=== PATIENT | female | born 1970 | race Caucasian/White ===

== ENCOUNTER 2023-05-20 07:23 | Outpatient (OUT) | payer OTHER, SELFPAY ==
[2023-05-20 08:33] LABS: Alanine Aminotransferase 32 U/L (14-59); Albumin Globulin Ratio 1.1; Albumin Level 3.9 g/dL (3.4-5.0); Alkaline Phosphatase 84 U/L (46-116); Anion Gap 12.8; Aspartate Amino Transferase 23 U/L (15-37); BUN Creatinine Ratio 24.7; Bilirubin Total 0.8 mg/dL (0.2-1.0); Calcium 9.2 mg/dL (8.5-10.1); Carbon Dioxide 29.5 mmol/L (21.0-32.0); Chloride 101 mmol/L (98-107); Chol HDL Ratio 2.7; Cholesterol 175 mg/dL (<=200); Creatine Kinase 53 U/L (26-192); Estimated GFR (African America >60 (>=60); Estimated GFR (Non-African Ame >60 (>=60); Globulin 3.4 g/dL; Glucose 98 mg/dL (74-106); HDL Cholesterol 65 mg/dL (40-60); Potassium 4.3 mmol/L (3.5-5.1); Sodium 139 mmol/L (136-145); Total Protein 7.3 g/dL (6.4-8.2); Triglycerides 59 mg/dL (<=150); VLDL CHOLESTEROL 11.8 mg/dL
[2023-05-20 10:01] LABS: Hematocrit 42.1 % (36.0-48.0); Hemoglobin 13.4 g/dL (12.0-16.0); Mean Corpuscular HGB Conc 31.8 g/dL (29.9-35.2); Mean Corpuscular Hemoglobin 30.2 pg (26.7-34.0); Mean Platelet Volume 10.8 fL (9.5-13.5); Platelet Count 255 10^3/uL (150-450); Red Blood Count 4.43 10^6/uL (4.20-5.40); Red Cell Distribution Width 12.8 % (11.0-15.0)
[2023-05-20 14:39] LABS: Atypical Lymphocytes Abs Man 1.04; Eosinophils Absolute Manual 0.26 10^3/uL (0.00-0.70); Monocytes Absolute Manual 0.52 10^3/uL (0.30-0.80); Segmented Neut Absolute Manual 4.68 10^3/uL (1.4-6.5)
== END 2023-05-20 07:24 | disposition home or self-care (01) ==
PROVIDERS: PCP Family Medicine; Visit Provider Family Medicine
DX: Z00.00 Encounter for general adult medical examination without abnormal findings (principal); E78.2 Mixed hyperlipidemia
CPT/HCPCS: 36415; 80053; 80061; 82550; 85007; 85027

== ENCOUNTER 2024-05-20 07:55 | Outpatient (OUT) | payer OTHER, SELFPAY ==
--- OUTSIDE RECORDS SUMMARY | 2024-05-20 08:02 | XMS_ITS | CCD ---
Author Organization [facility] Care Team Providers Care Senior Business Broker Name Role Phone PEARL ORTEGA Unavailable Unavailable CHANDANA SAGE Unavailable Unavailable PEARL ORTEGA Unavailable Unavailable CHANDANA SAGE Unavailable Unavailable YFN AKINS ([facility]) Unavailable UnavailPEARL Guy Unavailable Unavailable PEARL ORTEGA Primary Care Physician DR PEARL ORTEGA Attending Unavailable SHANNON, DR PEARL Arredondo Consulting Unavailable DR PEARL ORTEGA Primary Care Unavailable DR PEARL ORTEGA Admitting Unavailable Pearl Ortega Unavailable Pearl Ortega MD Primary Care Provider Noam Whitney Admitting Unavailable Noam Whitney Attending Unavailable Noam Whitney Referring Unavailable Noam Whitney Admitting Unavailable Noam Whitney Attending Unavailable Noam Whitney Referring Unavailable MATA IVY Attending Unavailable AUGUSTIN IBANEZ Attending Unavailable AUGUSTIN IBANEZ Attending Unavailable AUGUSTIN IBANEZ Attending Unavailable AUGUSTIN IBANEZ Attending Unavailable AUGUSTIN IBANEZ Attending Unavailable AUGUSTIN IBANEZ Attending Unavailable MATA IVY Attending Unavailable MATA IVY Attending Unavailable MATA IVY Attending Unavailable MATA IVY Attending Unavailable Allergies Allergy Classification Reported Allergen(s) Allergy Type Date of Onset Reaction(s) Facility (16 sources) azithromycin; Translations: [AZITHROMYCIN] Drug Allergy 08-02-19 16 AOF [facility] (20 sources) Penicillins; Translations: [PENICILLINS] Propensity to adverse reactions to drug (disorder) 08-02-19 16 Rash [facility] (20 sources) Erythromycin; Translations: [erythromycin] Drug Allergy 10-15-19 23 Antimicrobial susceptibility test (procedure) [facility] (20 sources) Tetracycline; Translations: [tetracycline] Drug Allergy 10-15-19 23 unknown [facility] (5 sources) Clindamycin Drug Allergy 09-04-19 24 Unknown, Unknown Reaction [facility] (20 sources) Doxycycline Drug Allergy 10-15-19 23 Unknown, Unknown Reaction [facility] (4 sources) Penicillin G Drug Allergy Unknown [facility] Other (3 sources) Substance with penicillin structure and antibacterial mechanism of action (substance) Drug allergy 11-27-19 13 Unknown [facility] Other (3 sources) patient allergy list reviewed by nurse or physicia Propensity to adverse reactions 11-27-19 Comment:Done [facility] Other (3 sources) Allergies Reconciled Propensity to adverse reactions Unknown [facility] Other (1 source) erythromycin base Allergy to substance 09-04-19 Unknown Reaction [facility] Medications Current Medications Medication Drug Class(es) Dates Sig (Normalized) Sig (Original) Ascorbic Acid (10 sources) Vitamin C Start: 03-28-2019 Vitamin C Segun y, Refills(s) 0 Start Date: 03/28/19 Status: Ordered Vitamin C *abdulkadir arredondo review for potential _update for e-prescription and drug interaction check* Active atorvastatin 40 mg oral tablet (11 sources) HMG-CoA Reductase Inhibitor Start: 06-02-2016 take 1 tablet by mouth once daily atorvastatin 40 mg Tab 40 mg = 1 tab(s), Oral, Daily, Refills(s) 0, High cholesterol Start Date: 06/02/16 Status: Ordered busPIRone hydrochloride 10 mg oral tablet (20 sources) Start: 05-18-2023 End: 05-19-2023 Buspirone Active 10 MG PO Every morning May 19, 2023 2:56pm Take 1/2 Tablet QAM orally once a day Start: 07-26-2022 take 1 tablet by earl th once daily busPIRone (Buspar) 10 MG tablet TAKE 1 TABLET BY MOUTH ONCE DAILY FOR 30 DAYS 07/26/2022 Active ciprofloxacin 500 mg oral tablet (1 source) Quinolone Antimicrobial Start: 09-04-2023 take 500 mg by mouth twice daily Ciprofloxacin Hcl Active 500 MG PO Twice daily September 04, 2023 12:00am citalopram 20 mg oral tablet (20 sources) Serotonin Reuptake Inhibitor Start: 09-26-2022 citalopram (CeleXA) 20 MG tablet 09/26/2022 Active Start: 06-02-2016 take 1 tablet by earl th once daily citalopram 10 mg Tab 10 mg = 1 tab(s), Oral, Daily, Refills(s) 0, Anxiety Start Date: 06/02/16 Status: Ordered clobetasol propionate 0.5 mg/ml topical solution (15 sources) Corticosteroid Start: 07-25-2022 clobetasol (Temovate) 0.05 % external solution APPLY DROPS TO SCALP ONCE OR TWICE DAILY NEEDED FOR ITTCHING 07/25/2022 Active Dextromethorphan / guaiFENesin (6 sources) Uncompetitive A-pwcnhq-S-aspartate Receptor Antagonist, Sigma-1 Agonist Start: 04-18-2020 take 5 mL by mouth every four hours for cough dextromethorphan -guaifenesin 10 mg-100 mg/5 mL Oral Liq 480 mL 5 mL, Oral, q4hr for cough, 300 mL, Refill(s) 0, [facility], 173, cm, 04/15/20 17:15:00 EST, Height/Length Dosing, 65, kg, 04/15/20 17:15:00 EST, Weight Dosing Start Date: 04/18/20 Status: Ordered estradiol 1 mg oral tablet (20 sources) Estrogen Start: 09-04-2023 take 0.5 mg by mouth once daily Estradiol Active 0.5 MG PO Daily September 04, 2023 12:00am off 1 week; repeat cycle Start: 05-18-2023 Estradiol Acti ve VAGINAL May 18, 2023 1:00am Start: 09-23-2022 estradiol (Est race) 0.5 MG tablet 09/23/2022 Active Estradiol 0.1 MG /GM as directed Vaginal Once a day *please review for potential _update for e-prescription and drug interaction check* Active Estradiol 0.1 MG /GM as directed Vaginal Once a day *please review for potential _update for e-prescription and drug interaction check* Active Ethinyl Estradiol / Ferrous fumarate / Norethindrone (1 source) Estrogen Start: 04-15-2020 Lo Loestrin Fe Oral, Daily, Refill(s) 0 Start Date: 04/15/20 Status: Ordered ethinyl estradiol 0.005 mg / norethindrone acetate 1 mg oral tablet (15 sources) Estrogen Start: 05-30-2022 norethindrone- et hinyl estradiol (Femhrt 03/20) 1-5 MG-MCG tablet 05/30/2022 Active famotidine 20 mg oral tablet (1 source) Histamine-2 Receptor Antagonist Start: 04-15-2020 take 1 tablet by mouth twice daily Pepcid 20 mg Tab 20 mg = 1 tab(s), Oral, BID, # 60 tab(s), Refills(s) 0 Start Date: 04/15/20 Status: Ordered guaiFENesin 1200 mg oral tablet (6 sources) Start: 06-02-2016 take 1 tablet by mouth every twelve hours as needed Mucinex 1200 mg ER Tab 1,200 mg, Oral, q12hr, PRN Sinus symptoms, Refills(s) 0, Sinus symptoms Start Date: 06/02/16 Status: Ordered Start: 06-02-2016 take 1 tablet by earl every twelve hours as needed Mucinex 1200 mg ER Tab 1,200 mg, Oral, q12hr, PRN Sinus symptoms, Refills(s) 0, Sinus symptoms Start Date: 06/02/16 Status: Ordered ibuprofen 800 mg oral tablet (6 sources) Nonsteroidal Anti-inflammatory Drug Start: 04-18-2020 take 1 tablet by mouth three times daily as needed for pain ibuprofen 800 mg Tab 800 mg = 1 tab(s), Oral, TID, PRN Pain/Fever, # 10 tab(s), Refills(s) 0, Pharmacy: [facility], 173, cm, 04/15/20 17:15:00 EST, Height/Length Dosing, 65, kg, 04/15/20 17:15:00 EST, Weight Dosing Start Date: 04/18/20 Status: Ordered indomethacin 25 mg oral capsule (6 sources) Nonsteroidal Anti-inflammatory Drug Start: 05-18-2023 End: 05-19-2023 take 25 mg by mouth twice daily Indomethacin Active 25 MG PO Twice daily 180 May 19, 2023 2:56pm take 1 capsule by mo [facility] every twelve hours Indomethacin 25 MG 1 capsule with food o r milk Orally Twice a day for 30 days Active ondansetron 4 mg oral tablet (2 sources) Serotonin-3 Receptor Antagonist Start: 04-18-2020 take 1 tablet by mouth every eight hours as needed for nausea Zofran 4 mg Tab 4 mg = 1 tab(s), Oral, q8hr, PRN Nausea/Vomiting, # 10 tab(s), Refills(s) 0, Pharmacy: [facility] 1986, 173, cm, 04/15/20 17:15:00 EST, Height/Length Dosing, 65, kg, 04/15/20 17:15:00 EST, Weight Dosing Start Date: 04/18/20 Status: Ordered oseltamivir 75 mg oral capsule (1 source) Neuraminidase Inhibitor Start: 04-13-2023 take 1 capsule by mouth every twelve hours Tamiflu 75 MG 1 capsule Orally Twice a day for 5 day(s) Mar, Active Probiotic (4 sources) Probiotic *pleas e review for potential _update for e-prescription and drug interaction check* Active Restasis 0.05% Emulsion (1 source) Start: 06-02-2016 take 1 drop(s) into the eye(s) every twelve hours Restasis 0.05% Emulsion 1 drop(s), Eye-Both, q12hr, Refill(s) 0, Other (see comment) Start Date: 06/02/16 Status: Ordered sulfamethoxazole 800 mg / trimethoprim 160 mg oral tablet (5 sources) Dihydrofolate Reductase Inhibitor Antibacterial, Sulfonamide Antimicrobial Start: 04-13-2023 take 1 tablet by mouth every twelve hours Bactrim DS 800-160 MG 1 tablet Orally Twice a day for 10 day(s) Mar, Active Completed/Discontinued Medications Medication Drug Class(es) Dates Sig (Normalized) Sig (Original) cephalexin 500 mg oral capsule (4 sources) Cephalosporin Antibacterial Start: 03-07-2019 take 1 capsule by mouth every twelve hours Cephalexin 500 MG 1 capsule Orally every 12 hrs for 7 days Feb, Not-Taking/PRN L Norgest/E.Estradi ol-E.Estrad (5 sources) Progestin, Estrogen, Progestin-containing Intrauterine Device Start: 05-18-2023 End: 09-04-2023 take 1 tablet by mouth once daily L Norgest/E.Estradio l-E.Estrad (Daysee) 0.15 mg-30 mcg (84)/10 mcg (7) tablets,dose pack,3 month Discontinued 1 TAB PO Daily May 18, 2023 1:00am September 04, 2023 1:18pm take 1 tablet by earl th every twenty-four hours Daysee 0.15-0.03 &0.01 MG 1 tablet Orall y Once a day *please review for potential _update for e-prescription and drug interaction check* Active fluorometholone 1 mg/ml ophthalmic suspension (4 sources) Corticosteroid take 1 drop(s) into the eye(s) twice daily as needed Fluorometholone 0.1 % 1 drop into affected eye Ophthalmic Twice a day Not-Taking/PRN take 1 drop(s) into the eye(s) twice daily Fluorometholone 0.1 % 1 drop into affect ed eye Ophthalmic Twice a day Not-Taking phenazopyridine hydrochloride 200 mg oral tablet (4 sources) Start: 03-07-2019 take 1 tablet by mouth every eight hours Pyridium 200 MG 1 tablet after meals Orally Three times a day for 2 day(s) Feb, Not-Taking/PRN Problems Active Problems Problem Classification Problem Date Documented Da te Episodic/Chronic Anxiety disorders (15 sources) Anxiety; Translations: [Generalized anxiety disorder] 06-02-2016 Chronic Calculus of urinary tract (14 sources) Kidney stone; Translations: [Calculus of kidney] Onset: 2 05-21-2020 Episodic Diseases of white blood cells (4 sources) Lymphocytosis (symptomatic); Translations: [Leukocytosis] Onset: 6 Chronic Disorders of lipid metabolism (18 sources) Hypercholesterolemia; Translations: [Hyperlipidemia] 06-02-2016 Chronic Esophageal disorders (7 sources) Gastroesophageal reflux disease without esophagitis; Translations: [Gastro-esophageal reflux disease without esophagitis] Chronic Fluid and electrolyte disorders (4 sources) Dehydration; Translations: [Dehydration] Episodic Genitourinary symptoms and ill-defined conditions (20 sources) Slade hematuria; Translations: [History of urinary tract infection] Onset: 2 03-28-2019 Episodic Immunizations and screening for infectious disease (4 sources) Vaccination given; Translations: [Encounter for immunization] Episodic Leukemias (14 sources) Chronic lymphoid leukemia, disease; Translations: [Chronic lymphocytic leukemia of B-cell type not having achieved remission] Onset: 7 06-02-2016 Chronic Leukemias (8 sources) History of chronic lymphocytic leukemia; Translations: [Personal history of leukemia] Episodic Leukemias (6 sources) Leukemias 04-15-2020 Menopausal disorders (7 sources) Atrophic vaginitis; Translations: [Postmenopausal atrophic vaginitis] Chronic Nonspecific chest pain (3 sources) Chest pain; Translations: [Other chest pain] Episodic Other connective tissue disease (6 sources) Neuralgia 06-02-2016 Episodic Comment on above: facial Other connective tissue disease (8 sources) Capsulitis; Translations: [Other enthesopathies, not elsewhere classified] 01-06-2024 Episodic Other connective tissue disease (8 sources) Pain in right foot; Translations: [Pain in right foot] 01-06-2024 Episodic Other connective tissue disease (2 sources) Plantar fasciitis; Translations: [Plantar fascial fibromatosis] 05-04-2024 Episodic Other connective tissue disease (2 sources) Bilateral heel pain; Translations: [Pain in right foot] 05-04-2024 Episodic Other eye disorders (6 sources) Tear film insufficiency 06-02-2016 Episodic Other gastrointestinal disorders (6 sources) Irritable bowel syndrome 11-12-2018 Chronic Other nervous system disorders (4 sources) Chronic pain; Translations: [Other chronic pain] Chronic Other nervous system disorders (4 sources) Neuroma; Translations: [Other specified mononeuropathies] 02-24-2024 Chronic Other nervous system disorders (8 sources) Trigeminal neuralgia; Translations: [Trigeminal neuralgia] Onset: 8 05-18-2023 Episodic Other upper respiratory disease (11 sources) Allergic rhinitis; Translations: [Allergic rhinosinusitis] Chronic Other upper respiratory disease (3 sources) Allergic rhinitis due to pollen; Translations: [Allergic rhinitis due to pollen] Onset: 3 Chronic Other upper respiratory infections (7 sources) Bacterial sinusitis; Translations: [Chronic sinusitis, unspecified] Chronic Other upper respiratory infections (4 sources) Acute sinusitis; Translations: [Acute sinusitis, unspecified] Onset: 3 Episodic Prolapse of female genital organs (6 sources) Uterine prolapse 06-02-2016 Chronic Comment on above: second degree Residual codes; unclassified (3 sources) Requires influenza virus vaccination; Translations: [Need for prophylactic vaccination and inoculation, Influenza] Episodic Residual codes; unclassified (3 sources) Normal body mass index; Translations: [Body mass index (BMI) 24.0-24.9, adult] Episodic Spondylosis; intervertebral disc disorders; other back problems (12 sources) Cervical spondylosis with radiculopathy; Translations: [Other spondylosis with radiculopathy, cervical region] Chronic Spondylosis; intervertebral disc disorders; other back problems (3 sources) Cervical radiculopathy; Translations: [Radiculopathy, cervical region] Episodic Unclassified (1 source) Unknown / UNK(Unknown) Onset: 7 Unclassified (6 sources) Asymptomatic microscopic hematuria 05-21-2020 Urinary tract infections (10 sources) Dysuria-frequency syndrome; Translations: [Urethral syndrome, unspecified] Episodic Viral infection (12 sources) Infectious mononucleosis; Translations: [Varicella] 11-12-2018 Episodic Viral infection (3 sources) Disease caused by 2019-nCoV; Translations: [COVID-19] Past or Other Problems Problem Classification Problem Date Documented Da te Episodic/Chronic Allergic reactions (6 sources) Contact dermatitis due to plants; Translations: [Unspecified contact dermatitis due to plants, except food] Onset: 11-26-2012 Episodic Mycoses (3 sources) Candidiasis of mouth; Translations: [Candidal stomatitis] Onset: 12-08-2012 Episodic Other connective tissue disease (15 sources) Plantar fascial fibromatosis; Translations: [Plantar fascial fibromatosis] Onset: 10-14-2022 10-14-2022 Episodic Other nervous system disorders (1 source) Atypical facial pain; Translations: [Atypical facial pain] Onset: 11-03-2016 Episodic Results Test Name Value Interpretation Reference Range Facility MA Mamm Diag w/CAD if perf a nd 3D LTon 04-22-2024 MA Mamm Diag w/CAD if perf and 3D LT Exam Date/Time: 04/22/2024 09:40 EST Reason for Exam: R92.8 Report IMPRESSION: BIRADS 2 BENIGN FINDINGS, NORMAL INTERVAL FOLLOW-UP Follow-up: 6 MONTH RECALL Category C - The breasts are heterogeneously dense, which may obscure small masses. Vascular calcifications: Absent. EXAM: MA Mamm Diag w/CAD if perf and 3D LT DATE: 04/22/2024 9:12 AM CLINICAL HISTORY: R92.8. COMPARISONS: 10/30/2023, 10/10/2022, 10/03/2021, and left breast ultrasound studies, most recently 10/30/2023. TECHNIQUE: Routine full-field digital mammograms and 3D breast tomosynthesis were obtained of the left breast. FINDINGS: There are no developing densities, suspicious microcalcifications, or areas of architectural distortion identified on the current study. Less prominent asymmetry lateral left breast at a posterior depth from 10/30/2023. No other significant changes are identified from the prior studies, given differences in technique and positioning. Dense Breast: Yes. CAD analysis was performed and used in the interpretation. Board Certified Radiologists. Accredited by the ACR and FDA. MAMMOGRAPHY IS VERY IMPORTANT TO YOUR HEALTH. THE CURRENT [employer] OF [employer] AND [employer]ATIONAL [employer]PREH[employer]IVE [employer] NETWORK GUIDELINES RECOMMENDS ANNUAL MAMMOGRAPHY BEGINNING AT AGE 40. THIS FACILITY UTILIZES A REMINDER SYSTEM TO ENSURE ALL PATIENTS RECEIVE REMINDER NOTIFICATIONS AT THE APPROPRIATE TIME BASED ON THE RECOMMENDATIONS OF THIS EXAM. Report Ordering Provider: Noam Whitney FINAL REPORT Dictated: 04/22/2024 9:51 am Zay Brown MD Signed (Electronic Signature): 04/22/2024 9:51 am Signed by: Zay Brown MD Transcribed by: RENATO Technologist: DAMIÁN Assessment: BI-RADS Category 2-Benign finding Recommendation: Normal interval follow-up Normal [facility] MA Mamm Diag w/CAD if perf a nd 3D Bilon 10-30-2023 MA Mamm Diag w/CAD if perf and 3D Justice Exam Date/Time: 10/30/2023 09:17 EDT Reason for Exam: N64.9 Report IMPRESSION: BIRADS 3 PROBABLY BENIGN, SHORT INTERVAL FOLLOW-UP Six-month follow-up left breast mammograms and possibly left breast ultrasound are suggested. Follow-up: 6 MONTH RECALL Density: Heterogeneously dense. Vascular calcifications: Absent. EXAM: MA Mamm Diag w/CAD if perf and 3D Justice, US Breast Unilateral Lt Complete DATE: 10/30/2023 9:01 AM CLINICAL HISTORY: N64.9. COMPARISONS: Numerous prior studies; most recently left breast ultrasound 05/04/2023, diagnostic left breast mammograms 10/23/2022, and bilateral screening mammograms 10/10/2022. TECHNIQUE: Routine full-field 2D digital mammograms and 3D breast tomosynthesis were obtained of both breasts. Ultrasound was performed at all clock face positions and in the central/retroareolar region of the left breast. FINDINGS: An approximately 5 to 6 mm asymmetric density within the lateral aspect of the left breast at a posterior depth is not confidently identified on the MLO, and localizes to the lower outer quadrant on tomosynthesis. No other significant changes identified elsewhere of either breast, by mammography. On ultrasound of the left breast, an approximately 7 x 4 mm hypoechoic structure at the 10:00 position appears unchanged. A similar-appearing mildly lobulated hypoechoic structure at the 5:00 position measuring approximately 6 x 5 x 3 mm may account for the mammographic area of concern. No other findings of concern are identified elsewhere within the left breast. Six-month follow-up left breast mammograms and possibly left breast ultrasound are suggested. I explained the findings to the patient upon completion of the ultrasound exam. Report Dense Breast: Yes. CAD analysis was performed and used in the interpretation. Board Certified Radiologists. Accredited by the ACR and FDA. MAMMOGRAPHY IS VERY IMPORTANT TO YOUR HEALTH. THE CURRENT [employer] OF [employer] AND [employer]ATIONAL [employer]PREH[employer]IVE CANC[employer] NETWORK GUIDELINES RECOMMENDS ANNUAL MAMMOGRAPHY BEGINNING AT AGE 38. THIS FACILITY UTILIZES A REMINDER SYSTEM TO ENSURE ALL PATIENTS RECEIVE REMINDER NOTIFICATIONS AT THE APPROPRIATE TIME BASED ON THE RECOMMENDATIONS OF THIS EXAM. Ordering Provider: Noam Whitney FINAL REPORT Dictated: 10/30/2023 11:20 am Zay Brown MD Signed (Electronic Signature): 10/30/2023 11:20 am Signed by: Zay Brown MD Transcribed by: RENATO Technologist: [place] Assessment: BI-RADS Category 3-Probably benign - short interval follow-up Recommendation: Follow-up at short interval Normal [facility] US Breast Unilateral Lt Comp ramez 10-30-2023 US Breast Unilateral Lt Complete Exam Date/Time: 10/30/2023 10:01 EDT Reason for Exam: N64.9 Report PLEASE SEE MA Mamm Diag w/CAD if perf and 3D Justice REPORT DATED: 10/30/2023. Ordering Provider: Noam Whitney FINAL REPORT Dictated: 10/30/2023 11:21 am Zay Brown MD Signed (Electronic Signature): 10/30/2023 11:21 am Signed by: aZy Brown MD Transcribed by: RENATO Technologist: DORIAN Armenta [facility] CBC AUTO DIFFon 04-15-2022 BASO # 0.1 103/ul Normal 0.0-0.1 [facility] Comment on above: Performed By: #### C BC #### [facility] [address] [place] [address] Dr. Lauri Acosta Basophils/100 WBC (Bld) 0.5 % Normal 0.2-2.0 [facility] Comment on above: Performed By: #### C BC #### [facility] [address] [place] [address] Dr. Lauri Acosta EO # 0.2 103/ul Normal 0.0-0.7 [facility] Comment on above: Performed By: #### C BC #### [facility] [address] [place] [address] Dr. Lauri Acosta Eosinophils/100 WBC (Bld) 1.2 % Normal 0.9-7.0 [facility] Comment on above: Performed By: #### C BC #### [facility] [address] [place] [address] Dr. Lauri Acosta Erythrocyte distribution width (RBC) [Ratio] 12.5 % Normal 11.0-15.0 [facility] Comment on above: Performed By: #### C BC #### [facility] [address] [place] [address] Dr. Lauri Acosta Hematocrit (Bld) [Volume fraction] 41.6 % Normal 36.0-48.0 [facility] Comment on above: Performed By: #### C BC #### [facility] [address] [place] [address] Dr. Lauri Acosta Hemoglobin (Bld) [Mass/Vol] 14.0 g/dL Normal 12.0-16.0 [facility] Comment on above: Performed By: #### C BC #### [facility] [address] [place] [address] Dr. Lauri Acosta IG # 0.03 10e3/ul Normal 0.00-0.03 [facility] Comment on above: Performed By: #### C BC #### [facility] [address] [place] [address] Dr. Lauri Acosta IG % 0.2 % Normal 0.0-0.5 [facility] Comment on above: Performed By: #### C BC #### [facility] [address] [place] [address] Dr. Lauri Acosta LYMPH # 9.9 103/ul Critically high 1.2-3.8 [facility] Comment on above: Performed By: #### C BC #### [facility] [address] [place] [address] Dr. Lauri Acosta Lymphocytes/100 WBC (Bld) 68.4 % Critically high 20.5-60.0 [facility] Comment on above: Performed By: #### C BC #### [facility] [address] [place] [address] Dr. Lauri Acosta MANUAL DIFF REQ NO Normal [facility] Comment on above: Performed By: #### C BC #### [facility] [address] [place] [address] Dr. Lauri Acosta MCH (RBC) [Entitic mass] 31.3 pg Normal 26.7-34.0 [facility] Comment on above: Performed By: #### C BC #### [facility] [address] [place] [address] Dr. Lauri Acosta MCHC (RBC) [Mass/Vol] 33.7 g/dL Normal 29.9-35.2 [facility] Comment on above: Performed By: #### C BC #### [facility] [address] [place] [address] Dr. Lauri Acosta MCV (RBC) [Entitic vol] 92.9 fL Normal 81.0-99.0 [facility] Comment on above: Performed By: #### C BC #### [facility] [address] [place] [address] Dr. Lauri Acosta MONO # 0.6 103/ul Normal 0.3-0.8 [facility] Comment on above: Performed By: #### C BC #### [facility] [address] [address] [address] Lauri Acosta Monocytes/100 WBC (Bld) 3.9 % Normal 1.7-12.0 [facility] Comment on above: Performed By: #### C BC #### [facility] [address] [address] [address] Lauri Acosta NEUT # 3.7 103/ul Normal 1.4-6.5 [facility] Comment on above: Performed By: #### C BC #### [facility] [address] [address] [address] Lauri Acosta Neutrophils/100 WBC (Bld) 25.8 % Critically low 43.0-75.0 [facility] Comment on above: Performed By: #### C BC #### [facility] [address] [place] [address] Dr. Lauri Acosta Platelet mean volume (Bld) [Entitic vol] 9.2 fL Critically low 9.5-13.5 [facility] Comment on above: Performed By: #### C BC #### [facility] [address] [place] [address] Dr. Lauri Acosta PLT 286 103/ul Normal 150-450 [facility] Comment on above: Performed By: #### C BC #### [facility] [address] [place] [address] Dr. Lauri Acosta RBC 4.48 106/ul Normal 4.20-5.40 [facility] Comment on above: Performed By: #### C BC #### [facility] [address] [place] [address] Dr. Lauri Acosta WBC 14.5 103/ul Critically high 4.0-11.0 [facility] Comment on above: Performed By: #### C BC #### [facility] [address] [place] [address] Dr. Lauri Acosta LIPID PROFILEon 04-15-2022 CHOL-HDL RATIO NORM SEE BELOW Normal [facility] Comment on above: Result Comment: 3.3 - 4.4 LOW RISK 4.4 - 7.1 AVERAGE RISK 7.1 - 11.0 MODERATE RISK >11.0 HIGH RISK Performed By: #### C MP, LIPID #### [facility] [address] [address] [address] Lauri Acosta Cholesterol [Mass/Vol] 168 mg/dL Normal <=200 [facility] Comment on above: Performed By: #### C MP, LIPID #### [facility] [address] [address] [address] Lauri Acosta Cholesterol in HDL [Mass/Vol] 47 mg/dL Normal 40-60 [facility] Comment on above: Performed By: #### C MP, LIPID #### [facility] [address] [place] [address] Dr. Lauri Acosta Cholesterol in LDL [Mass/Vol] 99.6 mg/dL Normal [facility] Comment on above: Performed By: #### C MP, LIPID #### [facility] [address] [address] [address] Lauri Acosta Cholesterol.total/C holesterol in HDL [Mass ratio] 3.6 {ratio} Normal [facility] Comment on above: Performed By: #### C MP, LIPID #### [facility] [address] [place] [address] Dr. Lauri Acosta HDL NORMAL > or = 60 mg/dl - LO W CARDIOVASCULAR RISK <40 mg/dl - HIGH CARDIOVASCULAR RISK Normal [facility] Comment on above: Performed By: #### C MP, LIPID #### [facility] [address] [place] [address] Dr. Lauri Acosta LDL CALC NORMAL SEE BELOW Normal [facility] Comment on above: Result Comment: <100 mg/dl OPTIMAL 100 - 129 mg/dl NEAR OR ABOVE OPTIMAL 130 - 159 mg/dl BORDERLINE HIGH 160 - 189 mg/dl HIGH >190 mg/dl VERY HIGH Performed By: #### C MP, LIPID #### [facility] [address] [place] [address] Dr. Lauri Acosta Triglyceride [Mass/Vol] 107 mg/dL Normal <=150 [facility] Comment on above: Performed By: #### C MP, LIPID #### [facility] [address] [address] [address] Lauri Acosta VLDL CALC 21.4 mg/dL Normal [facility] Comment on above: Performed By: #### C MP, LIPID #### [facility] [address] [address] [address] Lauri Acosta PROF 14(COMP METB)on 023 Albumin [Mass/Vol] 3.8 g/dL Normal 3.4-5.0 [facility] Comment on above: Performed By: #### C MP, LIPID #### [facility] [address] [address] [address] Lauri Acosta Albumin/Globulin [Mass ratio] 1.2 {ratio} Normal [facility] Comment on above: Performed By: #### C MP, LIPID #### [facility] [address] [place] [address] Dr. Lauri Acosta ALP [Catalytic activity/Vol] 88 U/L Normal 46-116 [facility] Comment on above: Performed By: #### C MP, LIPID #### [facility] [address] [address] [address] Lauri Acosta ALT [Catalytic activity/Vol] 23 U/L Normal 14-59 [facility] Comment on above: Performed By: #### C MP, LIPID #### [facility] [address] [place] [address] Dr. Lauri Acosta Anion gap [Moles/Vol] 14.7 mmol/L Normal [facility] Comment on above: Performed By: #### C MP, LIPID #### [facility] [address] [place] [address] Dr. Lauri Aocsta AST [Catalytic activity/Vol] 21 U/L Normal 15-37 [facility] Comment on above: Performed By: #### C MP, LIPID #### [facility] [address] [address] [address] Lauri Acosta Bilirubin [Mass/Vol] 1.2 mg/dL Critically high 0.2-1.0 [facility] Comment on above: Performed By: #### C MP, LIPID #### [facility] [address] [address] [address] Lauri Acosta Calcium [Mass/Vol] 9.2 mg/dL Normal 8.5-10.1 [facility] Comment on above: Performed By: #### C MP, LIPID #### [facility] [address] [address] [address] Lauri Acosta Chloride [Moles/Vol] 104 mmol/L Normal 98-107 [facility] Comment on above: Performed By: #### C MP, LIPID #### [facility] [address] [address] [address] Lauri Acsota CO2 [Moles/Vol] 28.8 mmol/L Normal 21.0-32.0 [facility] Comment on above: Performed By: #### C MP, LIPID #### [facility] [address] [place] [address] Dr. Lauri Acosta Creatinine [Mass/Vol] 0.82 mg/dL Normal 0.55-1.02 [facility] Comment on above: Performed By: #### C MP, LIPID #### [facility] [address] [address] [address] Lauri Acosta EGFR-AF FINNISH >60 Normal >=60 [facility] Comment on above: Performed By: #### C MP, LIPID #### [facility] [address] [place] [address] Dr. Lauri Acosta EGFR-NON AF FINNISH >60 Normal >=60 [facility] Comment on above: Performed By: #### C MP, LIPID #### [facility] [address] [address] [address] Lauri Acosta Globulin (S) [Mass/Vol] 3.1 g/dL Normal [facility] Comment on above: Performed By: #### C MP, LIPID #### [facility] [address] [address] [address] Lauri Acosta Glucose [Mass/Vol] 96 mg/dL Normal 74-106 [facility] Comment on above: Performed By: #### C MP, LIPID #### [facility] [address] [address] [address] Lauri Acosta Potassium [Moles/Vol] 4.5 mmol/L Normal 3.5-5.1 [facility] Comment on above: Performed By: #### C MP, LIPID #### [facility] [address] [address] [address] Lauri Acosta Protein [Mass/Vol] 6.9 g/dL Normal 6.4-8.2 [facility] Comment on above: Performed By: #### C MP, LIPID #### [facility] [address] [address] [address] Lauri Acosta Sodium [Moles/Vol] 143 mmol/L Normal 136-145 [facility] Comment on above: Performed By: #### C MP, LIPID #### [facility] [address] [place] [address] Dr. Lauri Acosta Urea nitrogen [Mass/Vol] 15.0 mg/dL Normal 7.0-18.0 [facility] Comment on above: Performed By: #### C MP, LIPID #### [facility] [address] [place] [address] Dr. Lauri Acosta Urea nitrogen/Creatinine [Mass ratio] 18.3 mg/mg Normal [facility] Comment on above: Performed By: #### C MP, LIPID #### [facility] [address] [place] [address] Dr. Lauri Acosta Comp Metabolic Panelon 05-04 Alanine aminotransferase (ALT) 18 U/L Normal 7-38 [facility] Comment on above: Performed By: #### C MP ####[facility] [address] [place], [place] [phone] Albumin 4.4 g/dL Normal 3.9-4.9 [facility] Comment on above: Performed By: #### C MP ####[facility] [address] [place], [place] [phone] Alkaline phosphatase (ALP) 74 U/L Normal 32-117 [facility] Comment on above: Performed By: #### C MP ####[facility] [phone] Anion gap 13 mmol/L Normal 9-18 [facility] Comment on above: Performed By: #### C MP ####[id number] [phone] Aspartate aminotransferase (AST) 29 U/L Normal 13-35 [facility] Comment on above: Performed By: #### C MP ####[address] [phone] Bilirubin (total) 0.7 mg/dL Normal 0.2-1.3 [facility] Comment on above: Performed By: #### C MP ####[address] [address] [phone] Calcium 9.1 mg/dL Normal 8.5-10.2 [facility] Comment on above: Performed By: #### C MP ####[address] [place] [address] [phone] Chloride 103 mmol/L Normal 97-105 [facility] Comment on above: Performed By: #### C MP ####[address] [place] [address] [phone] CO2 26 mmol/L Normal 22-30 [facility] Comment on above: Performed By: #### C MP ####[address] [place] [address] [phone] Creatinine 0.89 mg/dL Normal 0.58-0.96 [facility] Comment on above: Performed By: #### C MP ####[id number] [phone] eGFR (non-black) mL/min/{1.73_m2} Normal [facility] Comment on above: Result Comment: eGFR (Estimated GFR) Units of measure: mL/min/1.73 meters squaredeGFR is derived from the reexpressed MDRD Study equation using the following parameters: serum creatinine, age, gender and race. The creatinine assay has been calibrated to be traceable to IDMS.An eGFR <60 mL/min/1.73m2 for >3 months is consistent with chronic kidney disease. Refer to KDOQI guidelines for clinical interpretation.In patients with unstable renal function, e.g. those with acute kidney injury, the eGFR may not accurately reflect actual GFR. Performed By: #### C MP ####[address] [phone] Glucose mass conc 110 mg/dL High 74-99 [facility] Comment on above: Result Comment: The [place] [employer] (ADA) provides guidance for cutoff values for fasting glucose and random glucose. The ADA defines fasting as no caloric intake for at least 8 hours. Fasting plasma glucose results between 100 to 125 mg/dL indicate increased risk for diabetes (prediabetes).Fasting plasma glucose results greater than or equal to 126 mg/dL meet the criteria for diagnosis of diabetes. In the absence of unequivocal hyperglycemia, results should be confirmed by repeat testing. In a patient with classic symptoms of hyperglycemia or hyperglycemic crisis, random plasma glucose results greater than or equal to 200 mg/dL meet the criteria for diagnosis of diabetes.Reference: Standards of Medical Care in Diabetes 2016, [place] [employer]. Diabetes Care. 2016.39(Suppl 1). Performed By: #### C MP ####[address] [phone] Potassium molar conc 4.1 mmol/L Normal 3.7-5.1 [facility] Comment on above: Performed By: #### C MP ####[address] [phone] Protein 5.6 g/dL Low 6.3-8.0 [facility] Comment on above: Performed By: #### C MP ####[address] [phone] Sodium 142 mmol/L Normal 136-144 [facility] Comment on above: Performed By: #### C MP ####[facility] [address] [place], [place] [phone] Urea nitrogen 15 mg/dL Normal 7- [facility] Comment on above: Performed By: #### C MP ####[facility] [place], [place] [phone] Remote Abs Gran + CBC (for F HC use only)on 05-04-2017 Absol Gran Count 4.78 k/uL Normal 1.45-7.50 [facility] Erythrocyte distribution width Auto Ratio (RBC) 12.9 % Normal 11.5-15.0 [facility] Erythrocytes (RBC) 4.49 10*6/uL Normal 3.90-5.20 [facility] Hematocrit (HCT) 41.1 % Normal 36.0-46.0 [facility] Hemoglobin mass conc (Bld) 13.5 g/dL Normal 11.5-15.5 [facility] MCH 30.1 pG Normal 26.0-34.0 [facility] MCHC mass conc (RBC) 32.8 g/dL Normal 30.5-36.0 [facility] MCV 91.5 fL Normal 80.0-100.0 [facility] Platelet mean volume (PMV) 10.0 fL Normal 9.0-12.7 [facility] Platelets 283 10*3/uL Normal 150-400 [facility] WBC (Leukocytes) 19.86 10*3/uL High 3.70-11.00 [facility] CNOVSPon 11-03-2016 CNOVSP Visit (SP) Office ([place]) LUIS FERNANDO SOLO ([id number]) 1970 FDate Time Provider Department11/03/16 11:15 AM CHANDANA SAGE During your visit today, we recorded the following information about you: Temperature Pulse Respiration Blood pressure 98.9 degrees 85/minute 16/minute 138/91 Weight Height 68.2 kg 1.689 Lily Sage DO 11/07/2016 10:20 AM SignedPATIENT NAME: Luis Fernando SoloMRN: [id number] PHYSICIAN: Pearl Ortega MD ([facility])[address] [id number] CARE PHYSICIAN: Pearl Ortega MDOTHER PHYSICIANS:CHIEF COMPLAINT: Lymphocytosis (primary encounter diagnosis)ASSESSMENT/PLAN: Chronic lymphocytic leukemiaAsymptomaticRAI stage 0.She does not have any B symptoms, she does not have any lymphadenopathy orearly satiety. She has not had any recent unexplained weight loss.Considering her advancing low pelvic discomfort and the fact that we have notdone any screening CAT scans for her CLL,CT of the chest abdomen and pelvis from April 2016 show fibrous uterus butno lymphadenopathy.(D72.820) Lymphocytosis (primary encounter diagnosis)No orders found for this visit on 11/03/16. Return in about 1 year (around11/03/2017), or check cbc every 6 mos. f/u 1 year., for send copy of labs toDr. Ortega. . ------HPI: This is a 45 year old femalePast medical history of chronic back pain, atypical facial pain which wasworked up as trigeminal neuralgia but ultimately decided was not.Hyperlipidemia. Outpatient medications include atorvastatin, Celexa, birthcontrol combination pill.CBC from 05/17/14 shows white blood cell count of 15.0 with hemoglobin of 14.2.Platelet count was not reported.CBC from 01/25/16 shows white blood cell count of 21.4, differential shows 40%segs, 1% monocytes, 1% bands, 35% lymphocytes., platelet count of 284,000.Peripheral blood smear from January 14 shows moderate absolute lymphocytosissmall rounded and a mature.May 05, 2016Over last few weeks with pelvic discomfort. Saw Dr. whitney 04/14/16 in annualf/u. Later that week developed dysuria and went back for urgent f/u anddiagnosed with UTI with some hematuria. Didn't respond to Macrobid. Givenscript for bactrim finished 05/01/16. Still feels urgency and burning. Shefeels tight pelvic area and rectal area. No f/s/c. Legs hurt bilateralysimilar to when she was from pressure of baby pushing down.Also on vaginal flagyl.November 03, 2016 her utuerus removed in may. She is much happier. abd pain resolved.Bladder suspended. She has no UTI symptoms. REVIEW OF SYSTEMS PHYSICAL EXAM Body surface area is 1.79 meters squared.Vitals: BP 138/91 Pulse 85 Temp (Src) 98.9 (Oral) Resp 16 Ht 5'6.496ANDquot; (1.69m) Wt 150 lb 6.4 oz (68.2kg) BMI 23.91 kg/(m2). ECOG PS:0 NEGATIVES POSITIVES NEGATIVES POSITIVESGEN: fevers, sweats, chills. Overall feels well. chronic fatigue see historyof present illness GEN: Well appearing, alert, in no acute distress, appearsstated ageSKIN: lesions, rash, itching. SKIN: Normal color, texture, turgor, no rashesor lesionsHEENT: significant headaches, changes in hearing, changes in vision, nosebleeds. ENT: No scleral icterus. NECK: Supple, no thyromegaly, no JVD.: dysuria, frequency or incontinence. LYMPH: No cervical, supraclavicular,axillary, inguinal adenopathy.RESP: dyspnea, cough, wheezing. LUNG: Clear to auscultation, no wheezing ralesor rhonchiCARD: chest pain, leg swelling, palpitations. HEART: Regular. No murmurs,gallop, or rubs. No ectopy.GI: abdominal pain, nausea, vomiting, diarrhea, constipation, melena,hematochezia. abdominal complaints resolved ABDM: Soft. Non-tender.Non-distended. Bowel sounds normal. No masses. No hepatosplenomegaly.HEME: prolonged bleeding, bruising, adenopathy. EXT: No clubbing, cyanosisor edema.MUSC: joint pain or swelling. MUSC: No joint swelling, deformity, ortenderness.NEURO: syncope, seizures, peripheral numbness or tingling. BACK: Notenderness to palpation. No flank tenderness.MEDICATIONS:cyc loSPORINE (RESTASIS MULTIDOSE) 0.05 % drop Use in eyes twice daily.Ascorbic Acid (VITAMIN C) 1,000 mg tablet Take 1,000 mg by mouth once daily.guaiFENesin (MUCINEX) 1,200 mg Ta12 Take 1,200 mg by mouth as needed.indomethacin (INDOCIN) 25 mg capsule Take 1-3 caps 3x/day when during anepisode, take with foodfluticasone (FLONASE) 50 mcg/actuation nasal spray Use [address] in each nostrilas needed for Cold/Allergy Symptoms.loratadine (CLARITIN) 10 mg tablet Take 10 mg by mouth as needed.citalopram hydrobromide (CELEXA) 10 mg tablet Take 10 mg by mouth once daily.atorvastatin (LIPITOR) 40 mg tablet Take 40 mg by mouth once daily.CETIRIZINE HCL (ZYRTEC ORAL) Take by mouth as needed.MULTIVIT ANDamp;MINERALS/FERROUS FUM (MULTI VITAMIN ORAL) Take by mouth.Levonorgestrel-Ethin yl Estrad 0.15-0.03 mg per tablet Take 1 tablet by mouthonce daily.ALLERGIES:ALLERGIESA llergen Reactions- Arithromycin [Azith* GI Upset- Penicillins RashPAST MEDICAL HISTORYDiagnosis Date- Hypercholesteremia- LeukocytosisNo past surgical history on file.No family history on file.SOCIAL HISTORY:Social HistorySubstance Use Topics- Smoking status: Never Smoker- Smokeless tobacco: Never Used- Alcohol use NoCOUNSELING:I discussed with Luis Fernando the natural history, treated course, and prognosis ofLymphocytosis (primary encounter diagnosis); my impression as well as therationale, logistics, risks, benefits, and alternatives to the managementoptions noted above; and my recommendations listed below. The patient Pallavi Solo verbalized understanding and agreed with these recommendations andplan. I answered all questions satisfactorily..Antony Sage D.O.Medical OncologistLatrobe Hospitaling Provider: PEARL ORTEGA [[id number]]Allergies As of Date: 11/03/2016 Noted Allergy ReactionARITHROMYCIN (AZITHROMYCIN) 08/02/2015 8 - GI UpsetPENICILLINS 08/02/2015 2 - RashDate Reviewed: 11/03/2016Reviewed by: Madelaine Ponce - Fully AssessedReason for Visit: Lymphocytosis [Other] Cmt: 6 month follow upPrimary Visit Diagnosis:Lymphocytosis [D72.820]Disposition: Return in about 1 year (around 11/03/2017), or check cbc every 6 mos. f/u 1 year., for send copy of labs to Dr. Ortega. .Follow-up and Disposition History RecordedPrescriptions as of 11/03/2016 Sig: CYCLOSPORINE 0.05 % EYE DROPS Use in eyes twice daily. ASCORBIC ACID (VITAMIN C) 1,0* Take 1,000 mg by mouth once d* GUAIFENESIN ER 1,200 MG TABLE* Take 1,200 mg by mouth as nee* INDOMETHACIN 25 MG CAPSULE Take 1-3 caps 3x/day when dur* FLUTICASONE 50 MCG/ACTUATION * Use [address] in each nostril a* LORATADINE 10 MG TABLET Take 10 mg by mouth as needed. CITALOPRAM 10 MG TABLET Take 10 mg by mouth once segun* ATORVASTATIN 40 MG TABLET Take 40 mg by mouth once segun* ZYRTEC ORAL Take by mouth as needed. MULTI VITAMIN ORAL Take by mouth. LEVONORGESTREL 0.15 MG-ETHINY* Take 1 tablet by mouth once d*Problem List As Of Date 11/03/2016 Noted Resolved Atypical facial pain [G50.1] INVALID FOR* Lymphocytosis [D72.820] INVALID FOR*Encounter Status:Closed by CHANDANA SAGE DO on 11/07/16 Normal [facility] LDon 11-03-2016 LD 156 U/L Normal 135-214 [facility] Comment on above: Performed By: #### L D6 ####[facility] [address] [place], [place] [phone] PROGRESSon 11-03-2016 PROGRESS HNO ID: [id number] thor: Chandana Kendall: (none)Author Type: PhysicianType: Progress NotesFiled: 11/07/2016 10:20 AMNote Text:PATIENT NAME: Luis Fernando SoloMRN: [id number] PHYSICIAN: Pearl Ortega MD ([facility])[address] [id number] CARE PHYSICIAN: Pearl Ortega MDOTHER PHYSICIANS:CHIEF COMPLAINT: Lymphocytosis (primary encounter diagnosis)ASSESSMENT/PLAN: Chronic lymphocytic leukemiaAsymptomaticRAI stage 0.She does not have any B symptoms, she does not have any lymphadenopathy orearly satiety. She has not had any recent unexplained weight loss.Considering her advancing low pelvic discomfort and the fact that we havenot done any screening CAT scans for her CLL,CT of the chest abdomen and pelvis from April 2016 show fibrous uterusbut no lymphadenopathy.(D72.820) Lymphocytosis (primary encounter diagnosis)No orders found for this visit on 11/03/16. Return in about 1 year (around11/03/2017), or check cbc every 6 mos. f/u 1 year., for send copy of labsto Dr. Ortega. . -----HPI: This is a 45 year old femalePast medical history of chronic back pain, atypical facial pain which wasworked up as trigeminal neuralgia but ultimately decided was not.Hyperlipidemia. Outpatient medications include atorvastatin, Celexa, control combination pill.CBC from 05/17/14 shows white blood cell count of 15.0 with hemoglobin of14.2. Platelet count was not reported.CBC from 01/25/16 shows white blood cell count of 21.4, differential shows40% segs, 1% monocytes, 1% bands, 35% lymphocytes., platelet count of284,000. Peripheral blood smear from January 14 shows moderate absolutelymphocytosis small rounded and a mature.May 05, 2016Over last few weeks with pelvic discomfort. Saw Dr. whitney 04/14/16 inannual f/u. Later that week developed dysuria and went back for urgentf/u and diagnosed with UTI with some hematuria. Didn't respond toMacrobid. Given script for bactrim finished 05/01/16. Still feels urgencyand burning. She feels tight pelvic area and rectal area. No f/s/c.Legs hurt bilateraly similar to when she was from pressure ofbaby pushing down.Also on vaginal flagyl.November 03, 2016 her utuerus removed in may. She is much happier. abd pain resolved.Bladder suspended. She has no UTI symptoms. REVIEW OF SYSTEMS PHYSICAL EXAM Body surface area is 1.79 meterssquared.Vitals: BP 138/91 Pulse 85 Temp (Src) 98.9 (Oral) Resp 16 Ht 5'6.496 (1.69m) Wt 150 lb 6.4 oz (68.2kg) BMI 23.91 kg/(m2). ECOG PS:0 NEGATIVES POSITIVES NEGATIVES POSITIVESGEN: fevers, sweats, chills. Overall feels well. chronic fatigue seehistory of present illness GEN: Well appearing, alert, in no acutedistress, appears stated ageSKIN: lesions, rash, itching. SKIN: Normal color, texture, turgor, norashes or lesionsHEENT: significant headaches, changes in hearing, changes in vision, nosebleeds. ENT: No scleral icterus. NECK: Supple, no thyromegaly, no JVD.: dysuria, frequency or incontinence. LYMPH: No cervical,supraclavicular, axillary, inguinal adenopathy.RESP: dyspnea, cough, wheezing. LUNG: Clear to auscultation, no wheezingrales or rhonchiCARD: chest pain, leg swelling, palpitations. HEART: Regular. Nomurmurs, gallop, or rubs. No ectopy.GI: abdominal pain, nausea, vomiting, diarrhea, constipation, melena,hematochezia. abdominal complaints resolved ABDM: Soft. Non-tender.Non-distended. Bowel sounds normal. No masses. No hepatosplenomegaly.HEME: prolonged bleeding, bruising, adenopathy. EXT: No clubbing,cyanosis or edema.MUSC: joint pain or swelling. MUSC: No joint swelling, deformity, ortenderness.NEURO: syncope, seizures, peripheral numbness or tingling. BACK: Notenderness to palpation. No flank tenderness.MEDICATIONS:cyc loSPORINE (RESTASIS MULTIDOSE) 0.05 % drop Use in eyes twice daily.Ascorbic Acid (VITAMIN C) 1,000 mg tablet Take 1,000 mg by mouth oncedaily.guaiFENesin (MUCINEX) 1,200 mg Ta12 Take 1,200 mg by mouth as needed.indomethacin (INDOCIN) 25 mg capsule Take 1-3 caps 3x/day when during anepisode, take with foodfluticasone (FLONASE) 50 mcg/actuation nasal spray Use 1 [place] in eachnostril as needed for Cold/Allergy Symptoms.loratadine (CLARITIN) 10 mg tablet Take 10 mg by mouth as needed.citalopram hydrobromide (CELEXA) 10 mg tablet Take 10 mg by mouth oncedaily.atorvastatin (LIPITOR) 40 mg tablet Take 40 mg by mouth once daily.CETIRIZINE HCL (ZYRTEC ORAL) Take by mouth as needed.MULTIVIT ANDMINERALS/FERROUS FUM (MULTI VITAMIN ORAL) Take by mouth.Levonorgestrel-Ethin yl Estrad 0.15-0.03 mg per tablet Take 1 tablet bymouth once daily.ALLERGIES:ALLERGIESA llergen Reactions- Arithromycin [Azith* GI Upset- Penicillins RashPAST MEDICAL HISTORYDiagnosis Date- Hypercholesteremia- LeukocytosisNo past surgical history on file.No family history on file.SOCIAL HISTORY:Social HistorySubstance Use Topics- Smoking status: Never Smoker- Smokeless tobacco: Never Used- Alcohol use NoCOUNSELING:I discussed with Luis Fernando the natural history, treated course, andprognosis of Lymphocytosis (primary encounter diagnosis); my impressionas well as the rationale, logistics, risks, benefits, and alternatives tothe management options noted above; and my recommendations listed below.The patient Luis Fernando Solo verbalized understanding and agreed withthese recommendations and plan. I answered all questions satisfactorily..Antony Sage D.O.Medical OncologistUniversal Health Services Cancer [place], [place] Normal [facility] Remote Abs Gran + CBC (for [facility] use only)on 11-03-2016 Absol Gran Count 4.84 k/uL Normal 1.45-7.50 [facility] Erythrocyte distribution width Auto Ratio (RBC) 13.5 % Normal 11.5-15.0 [facility] Erythrocytes (RBC) 4.49 10*6/uL Normal 3.90-5.20 [facility] Hematocrit (HCT) 42.1 % Normal 36.0-46.0 [facility] Hemoglobin mass conc (Bld) 13.7 g/dL Normal 11.5-15.5 [facility] MCH 30.5 pG Normal 26.0-34.0 [facility] MCHC mass conc (RBC) 32.5 g/dL Normal 30.5-36.0 [facility] MCV 93.8 fL Normal 80.0-100.0 [facility] Platelet mean volume (PMV) 9.9 fL Normal 9.0-12.7 [facility] Platelets 305 10*3/uL Normal 150-400 [facility] WBC (Leukocytes) 19.84 10*3/uL High 3.70-11.00 [facility] Remote iSTAT BMP (for [facility] us e only)on 11-03-2016 Anion gap 11 mmol/L Normal 0-15 [facility] BUN (urea nitrogen) 16 mg/dL Normal 8-25 [facility] Chloride 105 mmol/L Normal 98-110 [facility] CO2 24 mmol/L Normal 23-32 [facility] Creatinine 0.90 mg/dL Normal 0.70-1.40 [facility] eGFR (non-black) mL/min/{1.73_m2} Normal [facility] Comment on above: Result Comment: eGFR (Estimated GFR) Units of measure: mL/min/1.73 meters squaredeGFR is derived from the reexpressed MDRD Study equation using the following parameters: serum creatinine, age, gender and race. The creatinine assay has been calibrated to be traceable to IDMS.An eGFR <60 mL/min/1.73m2 for >3 months is consistent with chronic kidney disease. Refer to KDOQI guidelines for clinical interpretation.In patients with unstable renal function, e.g. those with acute kidney injury, the eGFR may not accurately reflect actual GFR. Glucose mass conc 76 mg/dL Normal 65-100 [facility] Ionized Calcium, WB 1.19 mmol/L Normal 1.08-1.30 [facility] Comment on above: Result Comment: Gallo smyth note: This value represents ionized calcium not total calcium. Potassium molar conc 3.7 mmol/L Normal 3.5-5.0 [facility] Sodium 140 mmol/L Normal 132-148 [facility] Vital Signs Date Time Vital Sign Value Performing Clinician Darshan norman 09-04-2023 [id number] Body height 170.[address] [facility] 09-04-2023 13:11-0400 Body mass index (BMI) [Ratio] 21.9 kg/m2 [facility] 09-04-2023 13:11-0400 Body weight 63.[address] [facility] 09-04-2023 13:11-0400 Diastolic blood pressure 73 mm[Hg] [facility] 09-04-2023 13:11-0400 Heart rate 80 /min [facility] 09-04-2023 13:11-0400 Systolic blood pressure 105 mm[Hg] [facility] 07-12-2021 11:59-0400 Blood Pressure Location Onavo [facility] [employer] 07-12-2021 11:59-0400 Diastolic blood pressure 72 mm[Hg] [facility] [employer] 07-12-2021 11:59-0400 Heart rate 68 /min On[facility] [employer] 07-12-2021 11:59-0400 Systolic blood pressure 110 mm[Hg] [facility] [place] Encounters Encounter Date Encounter Type Care Provider Facility Start: 05-04-2024 End: 05-04-2024 Martin Ivy DPM Work Phone: [facility] Start: 05-04-2024 End: 05-04-2024 Bamboo flowsheet Mata Ivy DPM Work Phone: [facility] Start: 05-04-2024 End: 05-04-2024 ambulatory MATA IVY Not Available Start: 05-04-2024 End: 05-04-2024 Office outpatient visit 25 minutes Mata Ivy DPM Work Phone: [facility] Comment on above: Plantar fasciitis (P rimary Dx); Pain of both heels Start: 04-22-2024 End: 04-22-2024 ambulatory Noam Whitney [place] Start: 04-22-2024 End: 04-22-2024 Patient encounter procedure Noam Whitney [facility] Start: 03-29-2024 End: 03-29-2024 Office outpatient visit 15 minutes Mata Ivy DPM Work Phone: [facility] Comment on above: Capsulitis of foot ( Primary Dx); Right foot pain; Neuroma digital nerve Start: 03-29-2024 End: 03-29-2024 ambulatory MATA IVY Not Available Start: 03-29-2024 End: 03-29-2024 Bamboo flowsheet Mata Ivy DPM Work Phone: [facility] Start: 03-29-2024 End: 03-29-2024 Bamboo flowsheet Mata Ivy DPM Work Phone: [facility] Start: 02-24-2024 End: 02-24-2024 Bamboo flowsheet Mata Ivy DPM Work Phone: [facility] Start: 02-24-2024 End: 02-24-2024 Bamboo flowsheet Mata Ivy DPM Work Phone: [facility] Start: 02-24-2024 End: 02-24-2024 ambulatory MATA IVY Not Available Start: 02-24-2024 End: 02-24-2024 Office outpatient visit 15 minutes Mata Ivy DPM Work Phone: [facility] Comment on above: Capsulitis of foot ( Primary Dx); Right foot pain; Neuroma digital nerve Start: 01-27-2024 End: 01-27-2024 Office outpatient visit 15 minutes Mata Ivy DPM Work Phone: [facility] Comment on above: Capsulitis of foot ( Primary Dx); Right foot pain Start: 01-27-2024 End: 01-27-2024 ambulatory MATA IVY Not Available Start: 01-27-2024 End: 01-27-2024 Bamboo flowsheet Mata Ivy DPM Work Phone: [facility] Start: 01-27-2024 End: 01-27-2024 Bamboo flowsheet Mata Almanza Ivy DPM Work Phone: [facility] Start: 01-06-2024 End: 01-06-2024 Bamboo flowsheet Mata Almanza Ivy DPM Work Phone: [facility] Start: 01-06-2024 End: 01-06-2024 Bamboo flowsheet Mata Ivy DPM Work Phone: [facility] Start: 01-06-2024 End: 01-06-2024 Office outpatient visit 25 minutes Mata Ivy DPM Work Phone: [facility] Comment on above: Capsulitis of foot ( Primary Dx); Right foot pain Start: 01-06-2024 End: 01-06-2024 ambulatory MATA IVY Not Available Start: 10-30-2023 End: 10-30-2023 ambulatory Noam Whitney [place] Start: 10-30-2023 End: 10-30-2023 Patient encounter procedure Noam Whitney [facility] Start: 10-07-2023 End: 10-07-2023 ambulatory AUGUSTIN S LIEBENTHAL Not Available Start: 09-22-2023 End: 09-22-2023 ambulatory AUGUSTIN S LIEBENTHAL Not Available Start: 09-04-2023 End: 09-04-2023 ambulatory [facility] Work Phone: Start: 09-04-2023 End: 09-04-2023 Patient encounter procedure [facility] Work Phone: Start: 08-13-2023 End: 08-13-2023 ambulatory AUGUSTIN S LIEBENTHAL Not Available Start: 07-09-2023 End: 07-09-2023 ambulatory AUGUSTIN S LIEBENTHAL Not Available Start: 06-11-2023 End: 06-11-2023 ambulatory AUGUSTIN S LIEBENTHAL Not Available Start: 05-21-2023 End: 05-21-2023 ambulatory AUGUSTIN S LIEBENTHAL Not Available Start: 05-15-2023 Patient encounter status [facility] Start: 04-24-2023 End: 04-24-2023 Patient encounter procedure Noam Whitney [facility] Start: 04-13-2023 End: 04-13-2023 ambulatory Pearl Ortega Other [employer] Other Start: 04-13-2023 Office outpatient vi sit 15 minutes Pearl Ortega [facility] Start: 12-30-2022 End: 12-30-2022 ambulatory Pearl Ortega Other [employer] Other Start: 12-30-2022 Telephone encounter Pearl Ortega [facility] Start: 10-21-2022 End: 10-21-2022 ambulatory Pearl Ortega Other [employer] Other Start: 10-21-2022 Telephone encounter Pearl Ortega [facility] Start: 10-10-2022 End: 10-10-2022 Patient encounter procedure Noam Coleten [facility] Start: 04-16-2022 Encounter for genera l adult medical examination without abnormal findings DR PEARL ORTEGA [facility] Start: 04-15-2022 End: 04-16-[address] PEARL ORTEGA Facility:[facility] Start: 04-15-2022 End: 04-16-2022 Encounter for general adult medical examination without abnormal findings DR PEARL ORTEGA Facility:[facility] Start: 04-04-2022 End: 04-04-2022 ambulatory Pearl Ortega Other [employer] Other Start: 04-04-2022 Encounter for genera l adult medical examination without abnormal findings Pearl Ortega [facility] Start: 04-04-2022 Telephone encounter Pearl Ortega [facility] Start: 01-15-2022 Adult health examination Pearl Ortega Other [employer] Other Start: 07-12-2021 End: 07-12-2021 Patient encounter procedure Poli VASQUEZ [facility] [place] Start: 07-11-2021 End: 07-11-2021 Patient encounter procedure Poli VASQUEZ [facility] Start: 05-04-2017 End: 05-04-2017 Ambulatory PEARL ORTEGA [facility] Start: 11-03-2016 End: 11-07-2016 Ambulatory CHANDANA SAGE [facility] Procedures Date Procedure Procedure Detail Performing Clinician Start: 06-06-2016 Total vaginal hysterectomy, bilateral salpingectomy, anterior repair Poli VASQUEZ Start: 2015 General examination of patient Pearl Ortega Other Colonoscopy Poli VASQUEZ dental implant Poli VASQUEZ sinus surgery and septoplasty Poli VASQUEZ Plan of Treatment Date Care Activity Detail Author Start: 05-31-2024 End: 05-31-2024 Patient encounter procedure [facility] Start: 03-29-2024 End: 03-29-2024 Patient encounter procedure [facility] Comment on above: Arrived Start: 02-24-2024 End: 02-24-2024 Patient encounter procedure 02/24/2024 11:30 AM EST Office Visit [facility] [address] [place] [id number] Mata Ivy, DPM [address] [place] [address] [facility] Start: 01-27-2024 End: 01-27-2024 Patient encounter procedure 01/27/2024 3:15 PM EST Office Visit [facility] [address] [place] [phone] Mata Ivy, DPM [address] [place] [address] [facility] Start: 01-06-2024 End: 01-06-2024 Patient encounter procedure 01/06/2024 1:00 PM EDT Office Visit [facility] [address] [place] [phone] Mata Ivy, DPM [address] [place] [address] Arrived [facility] Comment on above: Arrived Start: 11-15-2023 Influenza vaccination Influenza Vacc ine (#1) [facility] Start: 2008 Screening for malign ant neoplasm of breast Mammogram [facility] Start: 1998 Screening for malign ant neoplasm of cervix [facility] Start: 1989 Screening for malign ant neoplasm of cervix Pap Smear [facility] Start: 1968 Screening for malign ant neoplasm of colon [facility] Immunizations Immunization Date Immunization Notes Care Provider Cynthia serrano 12-27-2022 influenza virus vaccine, unspecified formulation Mata Ivy [employer] Work Phone: [facility] 12-14-2021 influenza virus vaccine, unspecified formulation Noam Whitney [facility] 01-31-2021 SARS-CoV-2 (COVID-19 ) Ad26 vaccine, recombinant Poli VASQUEZ [facility] 12-22-2020 influenza virus vaccine, unspecified formulation Noam Isaias [facility] 06-29-2020 COVID-19, mRNA, LNP- S, PF, 30 mcg/0.3 mL dose; Translations: [Pfizer-BioNTech COVID-19 Vaccine] [employer] [facility] Comment on above: Reason for Medicatio n: Prophylaxis 06-01-2020 COVID-19, mRNA, LNP- S, PF, 30 mcg/0.3 mL dose; Translations: [Pfizer-BioNTech COVID-19 Vaccine] [employer] [facility] Comment on above: Reason for Medicatio n: Prophylaxis 12-23-2019 influenza virus vaccine, split virus (incl. purified surface antigen) Pearl Ortega Other [employer] Other 12-23-2019 influenza virus vaccine, unspecified formulation [facility] 03-22-2019 zoster vaccine recombinant Noam Whitney [facility] 01-17-2019 zoster vaccine recombinant Noam Whitney [facility] 01-11-2019 influenza virus vaccine, split virus (incl. purified surface antigen) Pearl Ortega Other [employer] Other 01-11-2019 influenza virus vaccine, unspecified formulation [facility] 03-16-2018 zoster vaccine, live Pearl Ortega Other [facility] 12-29-2017 influenza virus vaccine, split virus (incl. purified surface antigen) Pearl Ortega Other [employer] Other 12-29-2017 influenza virus vaccine, unspecified formulation Purple Harry [facility] 01-02-2017 influenza virus vaccine, unspecified formulation Purple Harry [facility] 01-02-2017 tetanus and diphther ia toxoids, adsorbed, preservative free, for adult use (5 Lf of tetanus toxoid and 2 Lf of diphtheria toxoid) Pearl Ortega Other [facility] 2015 influenza virus vaccine, unspecified formulation Purple Harry [facility] 2015 tetanus and diphther ia toxoids, adsorbed, preservative free, for adult use (5 Lf of tetanus toxoid and 2 Lf of diphtheria toxoid) Pearl Ortega Other [facility] 12-18-2014 tetanus and diphther ia toxoids, adsorbed, preservative free, for adult use (5 Lf of tetanus toxoid and 2 Lf of diphtheria toxoid) Pearl Ortega Other [facility] 12-27-2013 tetanus and diphther ia toxoids, adsorbed, preservative free, for adult use (5 Lf of tetanus toxoid and 2 Lf of diphtheria toxoid) Pearl Ortega Other [facility] 01-12-2013 tetanus and diphther ia toxoids, adsorbed, preservative free, for adult use (5 Lf of tetanus toxoid and 2 Lf of diphtheria toxoid) Pearl Shannon Other [facility] Payers Date Payer Category Payer Private Health Insurance [employer] [id number] 1968 Unknown [id number]. 593 1968 Unknown [id number] [id number]. 727 1968 Unknown [id number] [id number]. 727 1968 Unknown [id number] 2.16.840.1.236800.3.579.2. 1259 1968 Unknown [id number] 2.16.840.1.005530.3.579.2. 1259 1968 Unknown [id number] 2.16.840.1.253577.3.579.2. 1259 1968 Unknown [id number] 2.16.840.1.754920.3.579.2. 1259 1968 Unknown [id number] 2.16.840.1.129547.3.579.2. 1259 1968 Unknown [id number] 2.16.840.1.386370.3.579.2. 1259 1968 Unknown [id number] 2.16.840.1.534748.3.579.2. 9 1968 Unknown [id number] 2.16.840.1.289388.3.579.2. 9 1968 Unknown [id number] 2.16.840.1.119394.3.579.2. 9 1968 Unknown [id number] 2.16.840.1.890712.3.579.2. 9 1968 Unknown [id number] [id number]. 1259 1959 Unknown [id number] Unknown [facility] [employer] [id number] Social History Date Type Detail Facility Start: 05-21-2020 End: 10-14-2022 Tobacco smoking status Never smoked tobacco (finding) [facility] Start: 10-07-2022 Tobacco smoking status Never [facility] Start: 10-07-2023 End: 05-04-2024 Sex Assigned At Female [facility] Start: 1970 Sex Assigned At Female [facility] Start: 10-14-2022 Tobacco use and exposure Smokeless tobacco non-user [facility] Start: 01-06-2024 End: 05-04-2024 Alcoholic beverage intake Lifetime non-drinker (finding) [facility] Start: 10-07-2023 End: 05-04-2024 History of Social function [facility] Start: 10-07-2022 Gender identity Identifies as female gender (finding) [facility] Clinical Notes 07-12-2021 to 05-04-2024 Mata Ivy DPM - 05/04/2024 8:30 AM Kendrick Ivy DPM - 03/29/2024 4:15 PM Kendrick Ivy DPM - 02/24/2024 11:30 AM Kendrick Ivy DPM - 01/27/2024 3:15 PM EST Note Date & Type Note Facility 05-04-2024 History of Presen t illness Narrative Images from the original note were not included. HPI: Luis Fernando Solo presents today for evaluation of right foot pain. Patient states that she has had pain in the foot for 7-8 months. She describes the pain as dull and aching which has not increased with time, but has been persistent since May. Patient relates a negative history of trauma to the area. She has tried splinting, orthotics, NSAIDs, injections for treatment. Pt still continues to have pain with no improvement. Patient has been mostly taping the toe. She does not notice much improvement with the consistent splinting. No other complaints. Exam: General Examination: GENERAL APPEARANCE: awake, aware of surroundings, in no acute distress Vascular: DORSALIS PEDIS PULSE: 2/4, bilaterally POSTERIOR TIBIAL PULSE: 2/4, bilaterally TEMPERATURE GRADIENT: warm to cool EDEMA: none CAPILLARY FILLING TIME(sec): capillary fill inact bilateral digits less than 3 secs Neurologic: NEUROLOGIC: light touch is intact to the plantar foot Dermatologic: SKIN FINDINGS: normal HYPERKERATOSIS: none NAIL PATHOLOGY: digits 1-5 bilateral are intact SKIN PATHOLOGY: texture, turgor, hair growth, within normal limits Orthopedic: FOOT MORPHOLOGY: neutral JOINT RANGE OF MOTION: without pain or crepitus to the foot and ankle bilateral DEFORMITIES: no significant deformity to the 2nd MPJ right, mild HAV right PAIN ELICITED WITH PALPATION OF: There is pain noted with palpation to the bilateral heel at the plantar medial tubercle of the calcaneus. There is pain to palpation of the medial band of the plantar fascia. No pain noted with compression of the calcaneus or to palpation of the Achilles tendon bilateral. No pain with palpation along the course of the posterior tibial tendon PAIN ELICITED WITH ROM: 2nd MPJ Right MUSCLE STRENGTH: 5/5 for all pedal groups tested Assessments: Plantar Fasciitis bilateral Capsulitis right Neuroma Right foot pain H/O Plantar Fascitis bilateral Plan: Plantar Fasciitis: I reviewed the patients condition, eitiology, options for care treatment plan and prognosis including shoe gear changes, stretching, physical therapy, immobilization, night splints and anti-inflammatories. We have three clinical objectives to reduce inflammatory process and expedite repair of the Plantar fascia, re-establish biomechanical function of the foot in relation to the Achilles tendon and re-establish appropriate strength, range of motion and tolerance to normal gait forces relative to standing, walking, and running. Our goal is for the condition and symptoms to not advance to becoming chronic or recalcitrant. 1. Patient advised to perform stretching exercises, icing, and to make appropriate shoe gear changes to include wearing athletic-type shoes with supportive insoles. No barefoot walking. Also demonstrated to patient the instructions on how to correctly perform the stretching of the Achilles tendon/calf stretches, and the heel spur/plantar fasciitis regimen and patient instructions were given. 2. Discussed with the patient OTC insoles including Powerstep which patient can purchase today if interested. Patient advised that these modalities used in conjunction are able to alleviate most symptoms from this condition. 3. Discussed with the patient a corticosteroid injection in the plantar bilateral heel today. R/B/P/A/C discussed with the patient who consents to proceed. The area was prepped with alcohol. Attention was directed to the plantar medial tubercle where the patient was noted to have pain. Injection was performed with 2cc of 2%lidocaine plain and 1cc of Kenalog 40. Patient tolerated the injection well. Instructed on home care. 4. RTC: 4 weeks. Discussed next step of steroid injection, custom FO, therapy if needed. documented in this encounter [facility] 03-29-2024 History of Presen t illness Narrative Images from the original note were not included. HPI: Luis Fernando Solo presents today for evaluation of right foot pain. Patient states that she has had pain in the foot for 7-8 months. She describes the pain as dull and aching which has not increased with time, but has been persistent since May. Patient relates a negative history of trauma to the area. She has tried splinting, orthotics, NSAIDs, injections for treatment. Pt still continues to have pain with no improvement. Patient has been mostly taping the toe. She does not notice much improvement with the consistent splinting. No other complaints. Exam: General Examination: GENERAL APPEARANCE: awake, aware of surroundings, in no acute distress Vascular: DORSALIS PEDIS PULSE: 2/4, bilaterally POSTERIOR TIBIAL PULSE: 2/4, bilaterally TEMPERATURE GRADIENT: warm to cool EDEMA: none CAPILLARY FILLING TIME(sec): capillary fill inact bilateral digits less than 3 secs Neurologic: NEUROLOGIC: light touch is intact to the plantar foot Dermatologic: SKIN FINDINGS: normal HYPERKERATOSIS: none NAIL PATHOLOGY: digits 1-5 bilateral are intact SKIN PATHOLOGY: texture, turgor, hair growth, within normal limits Orthopedic: FOOT MORPHOLOGY: neutral JOINT RANGE OF MOTION: without pain or crepitus to the foot and ankle bilateral DEFORMITIES: no significant deformity to the 2nd MPJ right, mild HAV right PAIN ELICITED WITH PALPATION OF: Mild pain with palpation to the dorsal and plantar aspect of the second MPJ right. There is no tenderness with compression to the right second interspace. Evidence of a palpable click with compression across the right forefoot. Pain with compression to the right 3rd interspace. PAIN ELICITED WITH ROM: 2nd MPJ Right MUSCLE STRENGTH: 5/5 for all pedal groups tested Assessments: Capsulitis right Neuroma Right foot pain H/O Plantar Fascitis bilateral Plan: Neuroma: 1. Patient was instructed on use of OTC inserts along with metatarsal padding which was also dispensed. 2. Instructed patient on placement in shoes/inserts. Instructed patient that additional pads are available for purchase. 3. Patient would like to have her orthotics modified in order to put the metatarsal padding in permanently to prevent recurrent pain and symptoms. We will send her current pair off for refurbishment. 4. RTC: 3 weeks for follow-up. Discussed with the patient the next step of CMFO, cortisone injection vs. Surgery for treatment. Capsulitis: Patient has noticed improvement in regards to the pain and symptoms overlying the second toe with use of the splinting/padding to the foot. We discussed continued treatment options including continued splinting or padding for total of 6-8 weeks to allow for the soft tissue structures around the joint capsule to heal as well as further treatment options including a cortisone injection, more aggressive immobilization or surgical correction of the underlying foot deformities. Based upon the fact that the patient has noticed improvement they would like to continue with the splinting prior to attempting more aggressive treatment. Patient will follow up in additional 3-4 weeks for recheck if still having pain or symptoms. documented in this encounter [facility] 02-24-2024 History of Presen t illness Narrative Images from the original note were not included. HPI: Luis Fernando Solo presents today for evaluation of right foot pain. Patient states that she has had pain in the foot for 7-8 months. She describes the pain as dull and aching which has not increased with time, but has been persistent since May. Patient relates a negative history of trauma to the area. She has tried splinting, orthotics, NSAIDs, injections for treatment. Pt still continues to have pain with no improvement. Patient has been mostly taping the toe. She does not notice much improvement with the consistent splinting. No other complaints. Exam: General Examination: GENERAL APPEARANCE: awake, aware of surroundings, in no acute distress Vascular: DORSALIS PEDIS PULSE: 2/4, bilaterally POSTERIOR TIBIAL PULSE: 2/4, bilaterally TEMPERATURE GRADIENT: warm to cool EDEMA: none CAPILLARY FILLING TIME(sec): capillary fill inact bilateral digits less than 3 secs Neurologic: NEUROLOGIC: light touch is intact to the plantar foot Dermatologic: SKIN FINDINGS: normal HYPERKERATOSIS: none NAIL PATHOLOGY: digits 1-5 bilateral are intact SKIN PATHOLOGY: texture, turgor, hair growth, within normal limits Orthopedic: FOOT MORPHOLOGY: neutral JOINT RANGE OF MOTION: without pain or crepitus to the foot and ankle bilateral DEFORMITIES: no significant deformity to the 2nd MPJ right, mild HAV right PAIN ELICITED WITH PALPATION OF: Pain with palpation to the dorsal and plantar aspect of the second MPJ right. There is mild tenderness with compression to the right second interspace. No evidence of a palpable click with compression across the right forefoot. Increased pain appears to be present along the plantar second metatarsal head PAIN ELICITED WITH ROM: 2nd MPJ Right MUSCLE STRENGTH: 5/5 for all pedal groups tested Assessments: Capsulitis right Neuroma Right foot pain H/O Plantar Fascitis bilateral Plan: Capsulitis: Discussed with the patient the further options for treatment due to the continued pain related to the capsulitis on the right foot. We discussed topical anti-inflammatory/nerve medication, more aggressive immobilization vs injection. Discussed with the patient a corticosteroid injection. R/B/P/A/C with the patient who consents to proceed. The area was prepped with alcohol. Attention was directed to the left 2nd MPJ where the patient was noted to have pain. Injection was performed with a total of 2.5ccs: 2ccs of 0.25% Sensorcaine plain was injected into the joint, syringe was removed and clear fluid return was noted. Then 0.5cc of Kenalog 40 was injected into the joint. Attention was directed to the 2nd interspace where the patient was noted to have pain. Injection was performed with a total of 3ccs: 2ccs of 0.25% Sensorcaine plain and 1cc of Kenalog 40. Patient tolerated the injection well. Patient instructed on home care. Advised patient to continue splinting for 2 weeks even if symptoms resolve in order to prevent deformity or hammertoe from developing. Advised patient on continued use of the padding and supportive shoe gear area. Patient will follow-up in 4 weeks if still having pain. documented in this encounter [facility] 01-27-2024 History of Presen t illness Narrative Images from the original note were not included. HPI: Luis Fernando Solo presents today for evaluation of right foot pain. Patient states that she has had pain in the foot for 7-8 months. She describes the pain as dull and aching which has not increased with time, but has been persistent since May. Patient relates a negative history of trauma to the area. She has tried splinting, orthotics, NSAIDs, injections for treatment. Pt still continues to have pain with no improvement. Patient has been mostly taping the toe. She does not notice much improvement with the consistent splinting. No other complaints. Exam: General Examination: GENERAL APPEARANCE: awake, aware of surroundings, in no acute distress Vascular: DORSALIS PEDIS PULSE: 2/4, bilaterally POSTERIOR TIBIAL PULSE: 2/4, bilaterally TEMPERATURE GRADIENT: warm to cool EDEMA: none CAPILLARY FILLING TIME(sec): capillary fill inact bilateral digits less than 3 secs Neurologic: NEUROLOGIC: light touch is intact to the plantar foot Dermatologic: SKIN FINDINGS: normal HYPERKERATOSIS: none NAIL PATHOLOGY: digits 1-5 bilateral are intact SKIN PATHOLOGY: texture, turgor, hair growth, within normal limits Orthopedic: FOOT MORPHOLOGY: neutral JOINT RANGE OF MOTION: without pain or crepitus to the foot and ankle bilateral DEFORMITIES: no significant deformity to the 2nd MPJ right, mild HAV right PAIN ELICITED WITH PALPATION OF: Pain with palpation to the dorsal and plantar aspect of the second MPJ right. There is mild tenderness with compression to the right second interspace. No evidence of a palpable click with compression across the right forefoot. Increased pain appears to be present along the plantar second metatarsal head PAIN ELICITED WITH ROM: 2nd MPJ Right MUSCLE STRENGTH: 5/5 for all pedal groups tested Assessments: Capsulitis right Neuroma Right foot pain H/O Plantar Fascitis bilateral Plan: Capsulitis: Discussed with the patient the further options for treatment due to the continued pain related to the capsulitis on the right foot. We discussed topical anti-inflammatory/nerve medication, more aggressive immobilization vs injection. Discussed with the patient a corticosteroid injection. At this time she thinks that her symptoms are improving and she would like to continue with the splinting or taping and see if her pain continues to improve. If she is having persistent symptoms at her next follow-up then we did discuss injection. Advised patient on continued use of the padding and supportive shoe gear area. Patient will follow-up in 4 weeks if still having pain. documented in this encounter [facility] 01-06-2024 History of Presen t illness Narrative Images from the original note were not included. HPI: Luis Fernando Solo presents today for evaluation of right foot pain. Patient states that she has had pain in the foot for 7-8 months. She describes the pain as dull and aching which has not increased with time, but has been persistent since May. Patient relates a negative history of trauma to the area. She has tried splinting, orthotics, NSAIDs, injections for treatment. No other complaints. Exam: General Examination: GENERAL APPEARANCE: awake, aware of surroundings, in no acute distress Vascular: DORSALIS PEDIS PULSE: 2/4, bilaterally POSTERIOR TIBIAL PULSE: 2/4, bilaterally TEMPERATURE GRADIENT: warm to cool EDEMA: none CAPILLARY FILLING TIME(sec): capillary fill inact bilateral digits less than 3 secs Neurologic: NEUROLOGIC: light touch is intact to the plantar foot Dermatologic: SKIN FINDINGS: normal HYPERKERATOSIS: none NAIL PATHOLOGY: digits 1-5 bilateral are intact SKIN PATHOLOGY: texture, turgor, hair growth, within normal limits Orthopedic: FOOT MORPHOLOGY: neutral JOINT RANGE OF MOTION: without pain or crepitus to the foot and ankle bilateral DEFORMITIES: no significant deformity to the 2nd MPJ right, mild HAV right PAIN ELICITED WITH PALPATION OF: Pain with palpation to the dorsal and plantar aspect of the second MPJ right. There is mild tenderness with compression to the right second interspace. No evidence of a palpable click with compression across the right forefoot. Increased pain appears to be present along the plantar second metatarsal head PAIN ELICITED WITH ROM: 2nd MPJ Right MUSCLE STRENGTH: 5/5 for all pedal groups tested Assessments: Capsulitis right Right foot pain H/O Plantar Fascitis bilateral Plan: Capsulitis: 1. Reviewed the radiographs with the patient and discussed conservative options for treatment. 2. Discussed splinting the second digit with tape versus use of a Budin splint. A Budin splint was dispensed and patient instructed on use on the right second digit. 3. Patient was given a prescription for anti-inflammatory medications. Also encouraged use of supportive shoe gear as much as tolerated and icing and elevation as needed to improve symptoms. 4. RTC: 3 weeks for recheck. Discussed the possibility of further treatment with steroid injections or more aggressive immobilization and definitive treatment with surgery if further deformity in the toe occurs. She has had prior injection, but not sure of the exact location of the injection. We did also discuss MRI as a further treatment options for diagnostic purposes if she has continued pain. documented in this encounter [facility] 04-13-2023 Evaluation note Encounter Date Diagnosis Assessment Notes Mar, Exposure to influenza (ICD-10 - Z20.828) will treat prophylactically. Was quite ill when she had COVID in the past. She is immunocompromised due to the CLL. Mar, Acute non-recurrent maxillary sinusitis (ICD-10 - J01.00) Sinus infections can be triggered by a secondary infection from a viral URI or even seasonal allergies. Take medications as directed. Use saline nasal spray prior to presciption nasal spray. Take medications as directed, and complete all doses of medication even if you start to feel better. Patient advised to follow up with PCP if symptoms persist or worsen. Patient verbalized understanding and agreement with treatment plan. Mar, History of chronic lymphocytic leukemia (ICD-10 - Z85.6) as above [employer] Other 10-17-2023 Evaluation note* Encounter Date Diagnosis Assessment Notes Treatment Notes Treatment Clinical Notes Dec, Anxiety, generalized (ICD-10 - F41.1) [employer] Other 01-20-2023 Evaluation note* Encounter Date Diagnosis Assessment Notes Treatment Notes Treatment Clinical Notes Mar, Wellness examination (ICD-10 - Z00.00) [employer] Other 04-29-2022 Hospital Discharge instructions Patient Education 07/12/2021 12:26:06 Kidney Stones, Tjui-[id number]-[id number] Kidney Stones Kidney stones are rock-like masses that form inside of the kidneys. Kidneys are organs that make pee (urine). A kidney stone may move into other parts of the urinary tract, including: The tubes that connect the kidneys to the bladder (ureters). The bladder. The tube that carries urine out of the body (urethra). Kidney stones can cause very bad pain and can block the flow of pee. The stone usually leaves your body (passes) through your pee. You may need to have a doctor take out the stone. What are the causes? Kidney stones may be caused by: A condition in which certain glands make too much parathyroid hormone (primary hyperparathyroidism). A buildup of a type of crystals in the bladder made of a chemical called uric acid. The body makes uric acid when you eat certain foods. Narrowing (stricture) of one or both of the ureters. A kidney blockage that you were born with. Past surgery on the kidney or the ureters, such as gastric bypass surgery. What increases the risk? You are more likely to develop this condition if: You have had a kidney stone in the past. You have a family history of kidney stones. You do not drink enough water. You eat a diet that is high in protein, salt (sodium), or sugar. You are overweight or very overweight (obese). What are the signs or symptoms? Symptoms of a kidney stone may include: Pain in the side of the belly, right below the ribs (flank pain). Pain usually spreads (radiates) to the groin. Needing to pee often or right away (urgently). Pain when going pee (urinating). Blood in your pee (hematuria). Feeling like you may vomit (nauseous). Vomiting. Fever and chills. How is this treated? Treatment depends on the size, location, and makeup of the kidney stones. The stones will often pass out of the body through peeing. You may need to: Drink more fluid to help pass the stone. In some cases, you may be given fluids through an IV tube put into one of your veins at the hospital. Take medicine for pain. Make changes in your diet to help keep kidney stones from coming back. Sometimes, medical procedures are needed to remove a kidney stone. This may involve: A procedure to break up kidney stones using a beam of light (laser) or shock waves. Surgery to remove the kidney stones. Follow these instructions at home: Medicines Take vynb-rcj-easixgy and prescription medicines only as told by your doctor. Ask your doctor if the medicine prescribed to you requires you to avoid driving or using heavy machinery. Eating and drinking Drink enough fluid to keep your pee pale yellow. You may be told to drink at least 8 10 glasses of water each day. This will help you pass the stone. If told by your doctor, change your diet. This may include: ?Limiting how much salt you eat. ?Eating more fruits and vegetables. ?Limiting how much meat, poultry, fish, and eggs you eat. Follow instructions from your doctor about eating or drinking restrictions. General instructions Collect pee samples as told by your doctor. You may need to collect a pee sample: ?24 hours after a stone comes out. ?8 12 weeks after a stone comes out, and every 6 12 months after that. Strain your pee every time you pee (urinate), for as long as told. Use the strainer that your doctor recommends. Do not throw out the stone. Keep it so that it can be tested by your doctor. Keep all follow-up visits as told by your doctor. This is important. You may need follow-up tests. How is this prevented? To prevent another kidney stone: Drink enough fluid to keep your pee pale yellow. This is the best way to prevent kidney stones. Eat healthy foods. Avoid certain foods as told by your doctor. You may be told to eat less protein. Stay at a healthy weight. Where to find more information National Kidney Foundation (NKF): www.kidney.org [facility] [employer] [facility] (UCF): www.urologyhealth.org Contact a doctor if: You have pain that gets worse or does not get better with medicine. Get help right away if: You have a fever or chills. You get very bad pain. You get new pain in your belly (abdomen). You pass out (faint). You cannot pee. Summary Kidney stones are rock-like masses that form inside of the kidneys. Kidney stones can cause very bad pain and can block the flow of pee. The stones will often pass out of the body through peeing. Drink enough fluid to keep your pee pale yellow. This information is not intended to replace advice given to you by your health care provider. Make sure you discuss any questions you have with your health care provider. Document Released: 08/18/2008 Document Revised: 07/19/2019 Document Reviewed: 07/19/2019 [employer] Patient Education 2020 [employer]. Follow Up Care 05/27/2021 09:26:18 With:Poli VASQUEZ MD, URL Address: [address] [place], [place] [id number]- When: Unknown [facility] Evaluation + Plan note Future Appointments Appointment Date:07/12/2021 11:30:00 AM Scheduled Provider:Poli VASQUEZ MD Location:[facility] Future Appointments Appointment Date:07/18/2022 09:15:00 AM Scheduled Provider:Poli VASQUEZ MD Location:[facility] Appointment Type:URO Office Visit [facility] Evaluation noteNo InformationNort [employer] Other Evaluation noteNo assessment information available [facility] Work Phone: Evaluation note* Diagnosis Capsulitis of foot- Primary Right foot pain Pain in soft tissues of limb [facility] Diagnosis Capsulitis of foot- Primary Right foot pain Pain in soft tissues of limb Neuroma digital nerve [facility] Diagnosis Plantar fasciitis- Primary Plantar fascial fibromatosis Pain of both heels [facility] N[facility]ative - Reported* Type Description Date Medical History Chronic lymphocytic leukemia Medical History Hematuria Medical History Trigeminal neuralgia Medical History Dehydration Medical History Dysuria-frequency syndrome Medical History History of chronic lymphocytic l eukemia Medical History Anxiety, generalized Medical History Hyperlipidemia, unspecified hype rlipidemia type Medical History Bacterial sinusitis Medical History Vaginitis, atrophic Medical History Nephrolith Medical History Rhinitis, allergic Medical History Gastroesophageal reflux disease without esophagitis Surgical History total hysterectomy 05/2016 Surgical History sinus surgery Surgical History septoplasty Surgical History rhinoplasty Surgical History wisdom teeth Surgical History [place] [facility] [place] Surgical History hysterectomy Surgical History ETHMOIDECTOMY 2009 Hospitalization History see above [employer] Other Hospital course Narrative No data available for this section [facility] No data available for this section [facility] No data available for this section [facility] Summary Purpose Family History Relationship Condition Age at Onset Recorded Date/T ovi father High blood cholesterol Unknown grandparent Unknown Not Specified Heart disease Unknown Advance Directives Advance Directive Response Recorded Date/ Time Advance Directives No April 24, 2023 3:41pm Chief Complaint and Reason for Visit Chief Complaint left index finger in fection Additional Source Comments INFORMATION SOURCE (unrecogn ized section and content) DATE CREATED AUTHOR 09/04/2017 [facility] DATE CREATED AUTHOR AUTHOR'S ORGANIZ ATION 04/16/2022 [facility] DATE CREATED AUTHOR AUTHOR'S ORGANIZ ATION 05/02/2024 [facility] DATE CREATED AUTHOR AUTHOR'S ORGANIZ ATION 05/05/2024 [facility] EPIC REASON FOR VISIT (unrecogniz ed section and content) Wellness Lab Ordersmamm repo [email or web address] Patient Care team informatio n (unrecognized section and content) Team Status: Active Member Role Status Dates Pearl Ortega MD Primary Care Provider Active Team Status: Inactive Member Role Status Dates Pearl Ortega MD Primary Care Provide r, Attending Provider Active Start: September 04, 2023 End: September 04, 2023 Senior Business Broker Relationship Specialty Start Date End Date Pearl Ortega MD [address] [place] [facility] [place] [address] PCP - General Family Medicine 10/14/22 Senior Business Broker Relationship Specialty Start Date End Date Pearl Ortega MD [address] [place] [facility] [place] [address] PCP - General Family Medicine 10/14/22 Senior Business Broker Relationship Specialty Start Date End Date Pearl Ortega MD [address] [place] [facility] [place] [id number] PCP - General Family Medicine 10/14/22 Senior Business Broker Relationship Specialty Start Date End Date Pearl Ortega MD [address] [place] [facility] [place] [phone] PCP - General Family Medicine 10/14/22 Goals (unrecognized section and content) Goals may be documented in a n alternate section FOR RECORDS PERTAINING TO PATIENTS WHO ARE OR HAVE BEEN ENROLLED IN A CHEMICAL DEPENDENCY/SUBSTANCEABUSE PROGRAM, SOME INFORMATION MAY BE OMITTED. This clinical summary was aggregated from multiple sources. Caution should be exercised in using it in the provision of clinical care. This summary normalizes information from multiple sources, and as a consequence, information in this document may materially change the coding, format and clinical context of patient data. In addition, data may be omitted in some cases. CLINICAL DECISIONS SHOULD BE BASED ON THE PRIMARY CLINICAL RECORDS. [employer] provides no warranty or guarantee of the accuracy or completeness of information in this document.
[2024-05-20 08:12] LABS: Hematocrit 45.8 % (36.0-48.0); Hemoglobin 14.5 g/dL (12.0-16.0); Mean Corpuscular HGB Conc 31.7 g/dL (29.9-35.2); Mean Corpuscular Hemoglobin 30.1 pg (26.7-34.0); Mean Platelet Volume 9.2 fL (9.5-13.5); Platelet Count 262 10^3/uL (150-450); Red Blood Count 4.82 10^6/uL (4.20-5.40); Red Cell Distribution Width 13.2 % (11.0-15.0); White Blood Count 17.2 10^3/uL (4.0-11.0)
[2024-05-20 08:48] LABS: Basophils Abs Manual 0.17 10^3/uL (0.00-0.10); Eosinophils Absolute Manual 0.17 10^3/uL (0.00-0.70); Monocytes Absolute Manual 0.34 10^3/uL (0.30-0.80)
[2024-05-20 08:51] LABS: Lymphocytes Absolute Manual 10.49 10^3/uL (1.20-3.80)
[2024-05-20 08:52] LABS: Atypical Lymphocytes Abs Man 0.51
[2024-05-20 09:18] LABS: Alanine Aminotransferase 52 U/L (14-59); Albumin Globulin Ratio 1.3; Albumin Level 3.9 g/dL (3.4-5.0); Alkaline Phosphatase 84 U/L (46-116); Anion Gap 10.1; Aspartate Amino Transferase 27 U/L (15-37); BUN Creatinine Ratio 23.2; Bilirubin Total 1.7 mg/dL (0.2-1.0); Calcium 9.2 mg/dL (8.5-10.1); Carbon Dioxide 32.1 mmol/L (21.0-32.0); Chloride 102 mmol/L (98-107); Chol HDL Ratio 2.7; Cholesterol 197 mg/dL (<=200); Estimated GFR (African America >60 (>=60 mL/min/1.73m^2); Estimated GFR (Non-African Ame >60 (>=60 mL/min/1.73m^2); Glucose 88 mg/dL (74-106); HDL Cholesterol 74 mg/dL (40-60); Potassium 4.2 mmol/L (3.5-5.1); Sodium 140 mmol/L (136-145); Total Protein 6.9 g/dL (6.4-8.2); Triglycerides 72 mg/dL (<=150); VLDL CHOLESTEROL 14.4 mg/dL
== END 2024-05-20 07:56 | disposition home or self-care (01) ==
LOC: LAB 07:57
PROVIDERS: PCP Family Medicine; Visit Provider Family Medicine
DX: Z00.00 Encounter for general adult medical examination without abnormal findings (principal)
CPT/HCPCS: 36415; 80053; 80061; 85007; 85027

== ENCOUNTER 2024-10-06 13:20 | Outpatient (OUT) | payer OTHER, SELFPAY ==
--- OUTSIDE RECORDS SUMMARY | 2024-10-06 13:21 | XMS_ITS | Clinical Summary ---
Author Organization [facility] Address [address] [place], [place] [address] Care Team Providers Care Road Crew Member Name Role Phone Pearl Toro MD Primary Care Provider [phone] Allergies Active Allergy Reactions Criticality Noted Date Comments Azithromycin GI Upset 08/02/2015 Penicillins Rash 08/02/2015 Medications citalopram hydrobromide (CELEXA) 10 mg tablet Take 10 mg by mouth once daily. Active atorvastatin (LIPITOR) 40 mg tablet Take 40 mg by mouth once daily. Active CETIRIZINE HCL (ZYRTEC ORAL) Take by mouth as needed. Active MULTIVIT &MINERALS/FERROUS FUM (MULTI VITAMIN ORAL) Take by mouth. Active Levonorgestrel-Et hinyl Estrad 0.15-0.03 mg per tablet Take 1 tablet by mouth once daily. Active fluticasone (FLONASE) 50 mcg/actuation nasal spray Use 1 [place] in each nostril as needed for Cold/Allergy Symptoms. Active loratadine (CLARITIN) 10 mg tablet Take 10 mg by mouth as needed. Active indomethacin (INDOCIN) 25 mg capsule Take 1-3 caps 3x/day when during an episode, take with food 45 capsule 5 6 Active Ascorbic Acid (VITAMIN C) 1,000 mg tablet Take 1,000 mg by mouth once daily. Active guaiFENesin (MUCINEX) 1,200 mg Ta12 Take 1,200 mg by mouth as needed. Active cycloSPORINE (RESTASIS MULTIDOSE) 0.05 % drop Use in eyes twice daily. 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 Last address used for calculation Not on file 02/22/2020 Comments No Sex and Gender Information Value Date Recorded Sex Assigned at Not on file Legal Sex Female 8:47 AM EDT Gender Identity Not on file Sexual Orientation Not on file Last Filed Vital Signs Vital Sign Reading Time Taken Comments Blood Pressure 138/91 11/03/2016 11:15 AM EDT Pulse 85 11/03/2016 11:15 AM EDT Temperature 37.2 C (98.9 F) 11/03/2016 11:15 AM EDT Respiratory Rate 16 11/03/2016 11:15 AM EDT Oxygen Saturation 97% 02/11/2016 10:32 AM EST Inhaled Oxygen Concentration - - Weight 68.2 kg (150 lb 6.4 oz) 11/03/2016 11:15 AM EDT Height 168.9 cm (5' 6.5 ) 11/03/2016 11:15 AM ED T Body Mass Index 23.91 11/03/2016 11:15 AM EDT Plan of Treatment Health Maintenance Due Date Last Done Comments Anxiety Screening 1986 Depression Screening 1986 HIV Screening 1986 Hepatitis C Screening 1986 DTaP,Tdap,Td Vaccine (1 - Tdap) 01/01/1988 Hepatitis B Vaccine (1 of 3 - 19+ 3-dose series) 01/01/1988 Cervical Cancer Screening [address] Colonography 2013 Cologuard (FIT-DNA) 2013 Colonoscopy 2013 Colorectal Cancer Screening 2013 Fecal Occult Blood 2013 Lipid Screening 2013 Sigmoidoscopy 2013 Pneumococcal Vaccine: 50+ (1 of 1 - PCV) 2018 Shingrix Vaccine (1 of 2) 2018 Diabetes Screening 05/04/2020 05/04/2017, 01/28/2016 Covid-19 Vaccine (1 - 2023-25 season) 2023 Influenza Vaccine (#1) 2024 Procedures Procedure Name Priority Date/Time Associated Diagnosis Comments COMPREHENSIVE METABOLIC PANEL Routine 05/04/2017 11:18 AM EST Lymphocytosis from Last 3 Months or Most Recently Relevant to Health Maintenance Results * (ABNORMAL) COMP METABOLIC PANEL (05/04/2017 11:18 AM EST) Protein, Total 5.6(L) 6.3 - 8.0 g/dL 05/04/2017 9:50 PM EST [facility] Albumin 4.4 3.9 - 4.9 g/dL 05/04/2017 9:50 PM EST [facility] Calcium 9.1 8.5 - 10.2 mg/dL 05/04/2017 9:50 PM EST [facility] Bilirubin, Total 0.7 0.2 - 1.3 mg/dL 05/04/2017 9:50 PM EST [facility] Alkaline Phosphatase 74 32 - 117 U/L 05/04/2017 9:50 PM EST [facility] AST 29 13 - 35 U/L 05/04/2017 9:50 PM EST [facility] Glucose 110(H) 74 - 99 mg/dL 05/04/2017 9:50 PM EST [facility] Comment: The [place] Diabetes [employer] (ADA) provides guidance for cutoff values for fasting glucose and random glucose. The ADA defines fasting as no caloric intake for at least 8 hours. Fasting plasma glucose results between 100 to 125 mg/dL indicate increased risk for diabetes (prediabetes). Fasting plasma glucose results greater than or equal to 126 mg/dL meet the criteria for diagnosis of diabetes. In the absence of unequivocal hyperglycemia, results should be confirmed by repeat testing. In a patient with classic symptoms of hyperglycemia or hyperglycemic crisis, random plasma glucose results greater than or equal to 200 mg/dL meet the criteria for diagnosis of diabetes. Reference: Standards of Medical Care in Diabetes 2016, [place] Diabetes Association. Diabetes Care. 2016.39(Suppl 1). BUN 15 7 - 21 mg/dL 05/04/2017 9:[address] [facility] Creatinine 0.89 0.58 - 0.96 mg/dL 05/04/2017 9:50 PM [facility] Sodium 142 136 - 144 mmol/L 05/04/2017 9:50 PM [facility] Potassium 4.1 3.7 - 5.1 mmol/L 05/04/2017 9:50 PM [facility] Chloride 103 97 - 105 mmol/L 05/04/2017 9:50 PM [facility] CO2 26 22 - 30 mmol/L 05/04/2017 9:50 PM [facility] Anion Gap 13 9 - 18 mmol/L 05/04/2017 9:50 PM [facility] ALT 18 7 - 38 U/L 05/04/2017 9:50 PM [facility] eGFR- >60 05/04/2017 9:50 PM [facility] eGFR-All Other Races >60 . 05/04/2017 9:50 PM [facility] Comment: eGFR (Estimated GFR) Units of measure: mL/min/1.73 meters squared eGFR is derived from the reexpressed MDRD Study equation using the following parameters: serum creatinine, age, gender and race. The creatinine assay has been calibrated to be traceable to IDMS. An eGFR <60 mL/min/1.73m2 for >3 months is consistent with chronic kidney disease. Refer to KDOQI guidelines for clinical interpretation. In patients with unstable renal function, e.g. those with acute kidney injury, the eGFR may not accurately reflect actual GFR. Blood specimen (specimen) 05/04/2017 11:18 AM EST 05/04/2017 11:20 AM EST us Cady Joseph [employer] Final Re sult [facility] [address] [place] [address] from Last 3 Months or Most Recently Relevant to Health Maintenance Insurance [employer] Care Teams Road Crew Member Relationship Specialty Start Date End Date Pearl Toro MD [address] [place] [address] PCP - General Family Medicine 07/02/15
--- OUTSIDE RECORDS SUMMARY | 2024-10-06 13:21 | XMS_ITS | Clinical Summary ---
Author Organization [facility] Address [address] [place] [address] Care Team Providers Care Salesperson Burial Needs Name Role Phone Pearl Toro MD Primary Care Provider [phone] Allergies Active Allergy Reactions Criticality Noted Date Comments Azithromycin 08/02/2015 Other Reaction(s): GI Upset Doxycycline 10/14/2022 Erythromycin High 10/14/2022 Other Reaction(s): Sensitivities, Unknown Penicillins Rash Medium 08/02/2015 Other Reaction(s): Hives Tetracycline 10/14/2022 Other Reaction(s): unknown Medications busPIRone (Buspar) 10 MG tablet TAKE 1 TABLET BY MOUTH ONCE DAILY FOR 30 DAYS 07/26/2022 Active citalopram (CeleXA) 20 MG tablet 09/26/2022 Active clobetasol (Temovate) 0.05 % external solution APPLY DROPS TO SCALP ONCE OR TWICE DAILY NEEDED FOR ITTCHING 07/25/2022 Active estradiol (Estrace) 0.5 MG tablet 09/23/2022 Active norethindrone-e thinyl estradiol (Femhrt 03/20) 1-5 MG-MCG tablet 05/30/2022 Active Active Problems Problem Noted Date Diagnosed Date Plantar fascial fibromatosis 10/14/2022 Encounters Date Type Department Care Team Description 09/15/2024 2:45 PM EDT Office Visit [facility] [address] [place] [address] Isabella Ivy, DPCasper Plantar fasciitis (Primary Dx); Pain of right heel 09/15/2024 Bamboo flowsheet [facility] [address] [facility] [address] [place] [phone] Isabella Ivy DPM 09/15/2024 Travel from Last 3 Months Family History Medical History Relation Name Comments Heart disease Father Heart disease Mother Relation Name Status Comments Father Alive Mother Alive Social History Tobacco Use Types Packs/Day Years Used Date Smoking Tobacco: Never Smokeless Tobacco: Never Tobacco Cessation:Counseling Given: Not Answered Alcohol Use Standard Drinks/Week Comments Never 0 (1 standard drink = 0.6 oz pur e alcohol) Comments Unknown Sex and Gender Information Value Date Recorded Sex Assigned at Female 10/07/2022 8:35 AM EDT Legal Sex Female 7:00 PM EDT Gender Identity Female 10/07/2022 8:35 AM EDT Sexual Orientation Not on file Last Filed Vital Signs Vital Sign Reading Time Taken Comments Blood Pressure 107/67 09/12/2021 12:00 PM EDT Pulse - - Temperature - - Respiratory Rate - - Oxygen Saturation - - Inhaled Oxygen Concentration - - Weight 68.5 kg (151 lb) 06/10/2021 12:00 PM EDT Height 170.2 cm (5' 7 ) 09/12/2021 12:00 PM EDT Body Mass Index 23.65 06/10/2021 12:00 PM EDT Plan of Treatment Upcoming Encounters Date Type Department Care Team (Late st Contact Info) Description 10/18/2024 1:45 PM EDT Office Visit [facility] [address] [facility] [address] [place] [address] Isabella Ivy DPM [address] [facility] [address] [place] [address] Health Maintenance Due Date Last Done Comments CT Colonography 1968 Colonoscopy 1968 Colorectal Cancer Screening 1968 FIT-DNA 1968 FIT 1968 FOBT 1968 Sigmoidoscopy 1968 Pap Smear 1989 Cervical Cancer Screening 1998 HPV/Cotest 1998 Mammogram 2008 Influenza Vaccine (#1) 2024 4, 12/27/2022, 12/14/2021, Additional history exists Insurance [employer] Care Teams Salesperson Burial Needs Relationship Specialty Start Date End Date Pearl Toro MD [address] [place] [phone] PCP - General Family Medicine 08/25/24
--- OUTSIDE RECORDS SUMMARY | 2024-10-06 13:21 | XMS_ITS | Encounter Summary ---
Author Organization [facility] Address [address] [place], [place] [id number] Care Team Providers Care Miter Cutter Name Role Phone Pearl Toro MD Primary Care Provider Source Comments In the event this information is protected by the Federal Confidentiality of Alcohol and Drug AbusePatient Records regulations: The Federal rules restrict any use of the information to criminally investigate or prosecute any alcohol or drug abuse patient.[facility] Encounter Details Date Type Department Care Team (Latest Contact Info) Description 2017 H&P External-NonCCF Provider, External, QUINN Do not enter address information under generic External Provider. Social History Tobacco Use Types Packs/Day Years Used Date Smoking Tobacco: Never Smokeless Tobacco: Never Alcohol Use Standard Drinks/Week Comments No 0 (1 standard drink = 0.6 oz pur e alcohol) Comments No Sex and Gender Information Value Date Recorded Sex Assigned at Not on file Legal Sex Female 8:47 AM EDT Gender Identity Not on file Sexual Orientation Not on file documented as of this encounter Plan of Treatment Not on file documented as of this encounter Visit Diagnoses Not on filedocumented in this encounter Care Teams Miter Cutter Relationship Specialty Start Date End Date Pearl Toro MD [address] [facility] [place] [address] PCP - General Family Medicine 07/02/15 documented as of this encounter
--- OUTSIDE RECORDS SUMMARY | 2024-10-06 13:21 | XMS_ITS | Encounter Summary ---
Author Organization [facility] Address [facility] [place] [address] Care Team Providers Care Insights Strategist Name Role Phone Pearl Toro MD Primary Care Provider [phone] Source Comments In the event this information is protected by the Federal Confidentiality of Alcohol and Drug AbusePatient Records regulations: The Federal rules restrict any use of the information to criminally investigate or prosecute any alcohol or drug abuse patient.[facility] Encounter Details Date Type Department Care Team (Late st Contact Info) Description 10/09/2015 Get Medical Advice Neurology [address] [place] [id number] Amisha Freitas MD [address] [place] [phone] RE: Visit Follow Up Question Social History Tobacco Use Types Packs/Day Years Used Date Smoking Tobacco: Never Alcohol Use Standard Drinks/Week Comments [...] on filedocumented in this encounter Care Teams Insights Strategist Relationship Specialty Start Date End Date Pearl Toro MD [address] [place] [phone] PCP - General Family Medicine 07/02/15 documented as of this encounter
--- OUTSIDE RECORDS SUMMARY | 2024-10-06 13:21 | XMS_ITS | Encounter Summary ---
Author Organization [facility] Address [facility] [place] [address] Care Team Providers Care Dry Chain Puller Name Role Phone Pearl Toro MD Primary Care Provider [phone] Source Comments In the event this information is protected by the Federal Confidentiality of Alcohol and Drug AbusePatient Records regulations: The Federal rules restrict any use of the information to criminally investigate or prosecute any alcohol or drug abuse patient.[facility] Encounter Details Date Type Department Care Team (Late st Contact Info) Description 08/19/2015 Get Medical Advice Neurology [address] [place] [id number] Amisha Freitas MD [address] [place] [phone] RE: Visit Follow Up Question Social [...] on filedocumented in this encounter Care Teams Dry Chain Puller Relationship Specialty Start Date End Date Pearl Toro MD [address] [place] [phone] PCP - General Family Medicine 07/02/15 documented as of this encounter
--- OUTSIDE RECORDS SUMMARY | 2024-10-06 13:21 | XMS_ITS | Encounter Summary ---
Author Organization [facility] Address [facility] [place] [address] Care Team Providers Care Community Outreach Advocate Name Role Phone Pearl Toro MD Primary Care Provider [phone] Source Comments In the event this information is protected by the Federal Confidentiality of Alcohol and Drug AbusePatient Records regulations: The Federal rules restrict any use of the information to criminally investigate or prosecute any alcohol or drug abuse patient.[facility] Encounter Details Date Type Department Care Team (Late st Contact Info) Description 08/22/2015 Get Medical Advice Neurology [address] [place] [id number] Amisha Freitas MD [address] [place] [phone] RE: Visit Follow Up Question Social [...] on filedocumented in this encounter Care Teams Community Outreach Advocate Relationship Specialty Start Date End Date Pearl Toro MD [address] [place] [address] PCP - General Family Medicine 07/02/15 documented as of this encounter
--- OUTSIDE RECORDS SUMMARY | 2024-10-06 13:21 | XMS_ITS | Encounter Summary ---
Author Organization [facility] Address [facility] [place] [address] Care Team Providers Care Fast Food Delivery Driver Name Role Phone Pearl Toro MD Primary Care Provider [phone] Source Comments In the event this information is protected by the Federal Confidentiality of Alcohol and Drug AbusePatient Records regulations: The Federal rules restrict any use of the information to criminally investigate or prosecute any alcohol or drug abuse patient.[facility] Encounter Details Date Type Department Care Team (Late st Contact Info) Description 10/01/2015 Get Medical Advice Neurology [address] [place] [id number] Amisha Freitas MD [address] [place] [address] RE: Visit Follow Up Question Social [...] on filedocumented in this encounter Care Teams Fast Food Delivery Driver Relationship Specialty Start Date End Date Pearl Toro MD [address] [place] [phone] PCP - General Family Medicine 07/02/15 documented as of this encounter
--- NOTE | 2024-10-06 13:26 | MR_ITS ---
[place] [id number] Patient Name: LUIS FERNANDO BARKLEY MRN: [id number] date: 1970 Sex: F Assigned Patient Location: MRI Current Patient Location: MRI Accession/Order Number: [id number] Exam Date: 10/06/2024 21:48 Report Date: 10/06/2024 21:53 At the request of: DELORIS ORTEGA MD Procedure: MR cervical spine wo con MRI Cervical Spine without contrast TECHNIQUE: Multiplanar T1 and T2-weighted imaging of the cervical spine obtained. HISTORY: Chronic neck pain with radiculopathy COMPARISON: None BONY ALIGNMENT: Adequate BONY LESION: None CERVICAL CORD: No significant demyelination. SKULL BASE: unremarkable. PREVERTEBRAL SOFT TISSUES: Unremarkable NASOPHARYNGEAL REGION: unremarkable. VERTEBRAL ARTERIES: unremarkable. POSTSURGICAL CHANGES: None CERVICAL SOFT TISSUES: Unremarkable C1-2 LEVEL: Unremarkable C2-3: Unremarkable C3-4: Mild spondylosis. Mild diffuse disc bulge. Patent central canal and neural foramen C4-5: Moderate spondylosis. Diffuse disc bulge and osteophyte complex. Mild crowding the cord. No cord edema or hemorrhage. Mild right neural foraminal narrowing. Patent left neural foramen C5-6: Moderate spondylosis. Diffuse disc bulge and endplate spurring. Marked crowding of the spinal cord. No cord edema or hemorrhage. Mild bilateral neural foraminal narrowing C6-7: Moderate spondylosis. Diffuse disc bulge and endplate spurring. Moderate crowding of the cord. No cord edema or hemorrhage. Mild bilateral neural foraminal narrowing C7-T1: Unremarkable MR/MR cervical spine wo con IMPRESSION: Marked C5-6 cardiac cord. Moderate C4-5 and C6-7 crowding the cord. No cord edema or hemorrhage. Impression dictated by: Bautista Curiel M.D. 10/06/2024 9:53 PM Dictation Location: [place] [address] Electronically authenticated by: [id number] Y Date: 10/06/2024 21:53
== END 2024-10-06 13:21 | disposition home or self-care (01) ==
LOC: MRI 13:20
PROVIDERS: PCP Family Medicine; Visit Provider Family Medicine
DX: M54.12 Radiculopathy, cervical region (principal); M62.830 Muscle spasm of back; M47.812 Spondylosis without myelopathy or radiculopathy, cervical region
CPT/HCPCS: 72141

== ENCOUNTER 2024-11-11 15:49 | Outpatient (RCR) | payer OTHER, SELFPAY | END 2024-12-03 06:55 | disposition home or self-care (01) | LOC: PT 15:49 | PROVIDERS: PCP Family Medicine; Visit Provider Podiatrist Foot & Ankle Surgery | DX: M72.2 Plantar fascial fibromatosis (principal); M79.671 Pain in right foot; M79.672 Pain in left foot | CPT/HCPCS: 20560; 97035; 97110; 97140; 97161 ==

== ENCOUNTER 2024-11-30 14:08 | Outpatient (OUT) | payer OTHER, SELFPAY ==
--- OUTSIDE RECORDS SUMMARY | 2024-11-29 11:18 | XMS_ITS | Continuity of Care Document ---
Author Organization [facility] Address [address] [place] [phone] Phone Care Team Providers Care Manager Nicu Name Role Phone Pearl Toro MD Primary Care Provider Pearl Toro MD Attending Provider [phone] Min Thompson DO Attending Provider Pearl Toro MD Referring Provider [phone] Fan Sanches MD Attending Provider Care Teams Patient Care Team Team Status: Active Member Role Status Dates Pearl Toro MD Primary Care Provider Active Visit Care Team Team Status: Inactive Member Role Status Dates Pearl Toro MD Primary Care Provider Active Start: September 20, 2024 End: September 20, 2024 Pearl Toro MD Attending Provider Active St art: September 20, 2024 End: September 20, 2024 Visit Care Team Team Status: Inactive Member Role Status Dates Pearl Toro MD Primary Care Provider Active Start: November 07, 2024 End: November 07, 2024 Min Thompson DO Attending Provider Active S tart: November 07, 2024 End: November 07, 2024 Patient Care Team Team Status: Inactive Member Role Status Dates Pearl Toro MD Primary Care Provider Active Start: November 29, 2024 End: November 29, 2024 Pearl Toro MD Referring Provider Active St art: November 29, 2024 End: November 29, 2024 Fan Sanches MD Attending Provider Active Sta rt: November 29, 2024 End: November 29, 2024 Chief Complaint and Reason for Visit Chief Complaint Admit Date neck concerns September 20, 2024 2:01p m cervical pain November 07, 2024 9: 10am Ref: Dr. Kareem Toro - SCAPULAR/ CERVICAL P AIN November 29, 2024 2:27pm Reason for Visit Admit Date Radiculitis of right cervical region Kieran 2024 2:01pm Spasm of right trapezius muscle September 2:01pm Spasm of right trapezius muscle October 152024 9:10am Myalgia November 29, 2024 2:27pm Right shoulder pain November 29, 2024 2:27pm Allergies, Adverse Reactions, Alerts Allergen Type Severity Reaction Last Updated Verified Status doxycycline Allergy Unknown Unknown Reaction Septemb er 2024 2:36pm Yes Active erythromycin base Allergy Unknown Unknown Reaction S eptember 2024 2:36pm Yes Active Social History Smoking Status Status Start Date End Date Date of Observa tion Never smoked tobacco (finding) November 10, 2024 12:51pm Observation Status Observation Response Date of Response Legal Sex Female (finding) Sex Assigned At Female [birth year] Family History Relationship Condition Age at Onset Recorded Date/T ovi father High blood cholesterol Unknown grandparent Unknown mother Heart disease Unknown Problems Active Problems Medical Problem Onset Date Status Spasm of right trapezius muscle Unknown Active Anxiety, generalized Unknown Active Myalgia Unknown Active Chronic lymphocytic leukemia Unknown Act alia Cat scratch of left hand with infection Unknown Active Wellness examination Unknown Active Mixed hyperlipidemia Unknown Active Radiculitis of right cervical region Unknown Active Trigeminal neuralgia Unknown Active Right shoulder pain Unknown Active Medications Medication Status Dose Units Route Directions Qty Days St art Date Stop Date End Date Instructions Adherence Buspirone 10 mg tablet Discont inued 10 MG PO Every morning 90 Octobe r 2023 3:58pm May 20, 2024 9:53a m Atorvastati n 40 mg tablet Active 0 .ROUTE .COMPLEX y 2024 5:16pm TAKE 1 TABLET DAILY Complies with drug therapy Indomethaci n 25 mg capsule Discont inued 25 MG PO Twice daily 60 June 23, 2024 12:34p m September 20, 2024 2:08p m Indomethaci n 25 mg capsule Discont inued 25 MG PO Twice daily as needed May 20, 2024 9:41am June 23, 2024 12:35 pm Buspirone 10 mg tablet Active 10 MG PO Every morning May 20, 2024 9:53am Complies with drug therapy Indomethaci n 25 mg capsule Active 25 MG PO Twice daily as needed September 20, 2024 2:08pm Complies with drug therapy Cyclobenzap rine 10 mg tablet Active 10 MG PO Twice daily 60 30 Septem paradise 2024 12:00a m Complies with drug therapy Atorvastati n 40 mg tablet Discont inued 40 MG PO Daily May 18, 2023 1:00am Janua ry 2024 5:16p m Buspirone 10 mg tablet Discont inued 10 MG PO Every morning May 18, 2023 1:00am May 19, 2023 2:56p m Take 1/2 Tablet QAM orally once a day Citalopram 20 mg tablet Active 20 MG PO Twice daily May 18, 2023 1:00am Complies with drug therapy L Norgest/E.E stradiol-E. Estrad (Daysee) 0.15 mg-30 mcg (84)/10 mcg (7) tablets,dos e pack,3 month Discont inued 1 TAB PO Daily May 18, 2023 1:00am September 04, 2023 1:18p m Estradiol 0.01 % (0.1 mg/gram) cream Active VAGINA L May 18, 2023 1:00am Complies with drug therapy Indomethaci n 25 mg capsule Discont inued 25 MG PO Twice daily May 18, 2023 1:00am May 19, 2023 2:56p m Indomethaci n 25 mg capsule Discont inued 25 MG PO Twice daily 180 May 19, 2023 2:56pm May 20, 2024 9:41a m Buspirone 10 mg tablet Discont inued 10 MG PO Every morning May 19, 2023 2:56pm Octob er 2023 3:58p m Take 1/2 Tablet QAM orally once a day Estradiol 1 mg tablet Active 0.5 MG PO Daily September 04, 2023 12:00a m off 1 week; repeat cycle Complies with drug therapy Ciprofloxac in Hcl 500 mg tablet Discont inued 500 MG PO Twice daily 14 September 04, 2023 12:00a m May 20, 2024 9:41a m Immunizations Immunization Event Date Not Given Reason Dose Number Passenger Car Inspector Lot Number Vaccine Information Statement (VIS) Detail Administration Location influenza, unspecified formulation December 29, 2017 influenza, unspecified formulation January 11, 2019 influenza, unspecified formulation December 23, 2019 Tetanus, Diphtheria adult, 5 Lf pres free abs January 12, 2013 Tetanus, Diphtheria adult, 5 Lf pres free abs December 27, 2013 Tetanus, Diphtheria adult, 5 Lf pres free abs December 18, 2014 Tetanus, Diphtheria adult, 5 Lf pres free abs 2015 Tetanus, Diphtheria adult, 5 Lf pres free abs January 02, 2017 Shingles (Zoster) March 16, 2018 Vital Signs Vital Reading Result Reference Range Collection Date/Time Height 67 [in_i] September 20, 2024 2:05pm Weight 65.09 kg September 20, 2024 2:05pm Heart Rate 70 /min 60-100 September 20, 2024 2:05pm BP Systolic 113 mm[Hg] 100-140 September 20, 2024 2:05pm BP Diastolic 80 mm[Hg] 60-100 September 20, 2024 2:05pm BMI (Body Mass Index) 22.4 kg/m2 September 202024 2:05pm Height 68 [in_i] November 07 9:21am Weight 65.00 kg November 07 9:21am BMI (Body Mass Index) 21.7 kg/m2 November 07, 2024 9:21am Advance Directives Advance Directive Response Recorded Date/ Time Advance Directives No November 10, 2024 12:51pm Insurance Providers Guarantor Vielka Solo Address [address] [place] [id number] Contact Info. Home Phone: Payer Policy Id Subscriber's Name Subscriber Id Effectiv e Date Expiration Date [facility] [id number] Vielka Solo [id number] Encounters Encounter Location(s) Arrival/Admit Date Discharge/Depart Date Provider(s) Departed Physician/Prov ider Office Visit -[facility] September 20, 2024 2:01pm September 20, 2024 2:53pm Pearl Toro MD Departed Physician/Prov ider Office Visit -[facility] November 07, 2024 9:10am November 07, 2024 10:13am Min Thompson DO Departed Physician/Prov ider Office Visit -[facility] November 29, 2024 2:27pm November 29, 2024 3:17pm Citlaly Guallpa MD Recent Diagnosis Onset Date Admit Date Radiculitis of right cervical region Unknown September 20, 2024 2:01pm Spasm of right trapezius muscle Unknown September 20, 2024 2:01pm Spasm of right trapezius muscle Unknown November 07, 2024 9:10am Myalgia Unknown November 29, 2024 2:27pm Right shoulder pain Unknown November 292024 2:27pm Assessments Diagnosis Onset Date Resolution Status Admit Date Radiculitis of right cervica l region acute September 20, 2024 2 :01pm Spasm of right trapezius muscle acute September 20, 2024 2 :01pm Spasm of right trapezius muscle acute November 07 9:10am Myalgia acute November 2:27pm Right shoulder pain acute Septe 2024 2:27pm Plan of Treatment Author Pearl Toro [facility] Authored September 20, 2024 3:42p m MRI ordered. Pt agrees to Ne urosurgery referral. We discussed pain mgmt w potential trigger point injections. She would like to start w the root cause of her neck pain initially and go from there. She has been doing her home exercises from PT without improvement. Author Min Thompson [facility] Authored November 07, 2024 10 :08am In summary this patient is a 53-year-old right-handed female who presents to clinic today with chief complaints of right trapezius pain as well as occasional right upper extremity numbness globally. This time I independent reviewed the MRI that she had completed from October 06. I have gone over the MRI with her as well demonstrate the same findings particularly at C5-6 and C6-7 levels where there is central stenosis. I described to her symptoms of myelopathy subjectively to which it sounds that she may be experiencing. With the numbness in the right upper extremity. I discussed the pathologic Erik's exam that she has on the left-hand side and how this would point towards cervical stenosis. I expressed the discussion piece of how she may be developing symptomatic objective and subjective myelopathy. I discussed how I do want to obtain flexion-extension films of her cervical spine as well as obtain an EMG of the right upper extremity better tease these symptoms out. I also do want to do CT of the cervical spine as well as for part of her preoperative planning. With respect to the right trapezius pain we discussed how this is most likely musculoskeletal in nature and how she may benefit from trigger point injections for this. Once the CT x-rays and the EMG is completed like her to return for continued session her symptom complex. All questions were answered to satisfaction as patient she is in agreement with the above plan. Author Merline Rangel [facility] Authored November 29, 2024 3:15pm Patients primary complaint today is progressing cervical pain. He shows a fair amount of tenderness in the bilateral cervical region on exam today. He has failed multiple conservative measures and would be a reasonable candidate to proceed with bilateral cervical paraspinal and trapezius muscle trigger point injections today in the office. Risks and benefits of procedure explained to patient; patient verbalizes understanding. Patient tolerated well. We will follow up with the patient in one month to re-assess, sooner if needed. Anatomy of spine discussed in detail with patient in regards to patients condition. Risks, benefits, and alternatives of the procedure we explained to patient. Patient agrees to proceed. The skin was prepped using standard sterile technique. Using a 25g needle, 0.5% Bupivacaine and Triamcinolone 40 MG was injected. Patient tolerated procedure well with no apparent complications. Future Tests Future scheduled test information is unavailable Pending Tests Test Name Ordered Date Scheduled Date MR cervical spine wo con September 20, 2024 2:29pm XR cerv spine AP/LAT/FLX/EXT November 07, 2024 1 0:03am CT cervical spine wo con November 07, 2024 10:03 am Future Visits Future appointment information is unavailable Referrals to Other Providers Referral information is unavailable Future Procedures Procedure Name Ordered Date Scheduled Date NE emg UE RT November 07, 2024 10:03am Future Medications Future medication information is unavailable Patient Instructions Patient instructions are unavailable
--- OUTSIDE RECORDS SUMMARY | 2024-11-30 14:17 | XMS_ITS | Encounter Summary ---
Author Organization [facility] Address [facility] [place] [address] Care Team Providers Care Demonstrator Sales Name Role Phone Pearl Toro MD Primary Care Provider [phone] Source Comments In the event this information is protected by the Federal Confidentiality of Alcohol and Drug AbusePatient Records regulations: The Federal rules restrict any use of the information to criminally investigate or prosecute any alcohol or drug abuse patient.[facility] Encounter Details Date Type Department Care Team (Late st Contact Info) Description 10/09/2015 Get Medical Advice Neurology [address] [place] [id number] Amisha Freitas MD [address] [place] [phone] RE: Visit Follow Up Question Social [...] on filedocumented in this encounter Care Teams Demonstrator Sales Relationship Specialty Start Date End Date Pearl Toro MD [address] [place] [address] PCP - General Family Medicine 07/02/15 documented as of this encounter
--- OUTSIDE RECORDS SUMMARY | 2024-11-30 14:17 | XMS_ITS | Encounter Summary ---
Author Organization [facility] Address [facility] [place] [address] Care Team Providers Care Nuisance Animal Damage Control Agent Name Role Phone Pearl Toro MD Primary Care Provider [phone] Source Comments In the event this information is protected by the Federal Confidentiality of Alcohol and Drug AbusePatient Records regulations: The Federal rules restrict any use of the information to criminally investigate or prosecute any alcohol or drug abuse patient.[facility] Encounter Details Date Type Department Care Team (Late st Contact Info) Description 10/01/2015 Get Medical Advice Neurology [address] [place] [id number] Amisha Freitas MD [address] [place] [phone] RE: Visit Follow Up Question Social [...] on filedocumented in this encounter Care Teams Nuisance Animal Damage Control Agent Relationship Specialty Start Date End Date Pearl Toro MD [address] [place] [address] PCP - General Family Medicine 07/02/15 documented as of this encounter
--- OUTSIDE RECORDS SUMMARY | 2024-11-30 14:17 | XMS_ITS | Encounter Summary ---
Author Organization [facility] Address [address] [place] [address] Care Team Providers Care Spot Facer Name Role Phone Pearl Toro MD Primary Care Provider [phone] Pearl Toro MD Primary Care Provider [phone] Encounter Details Date Type Department Care Team (Late Contact Info) Description 10/13/2022 Abstract [facility] [address] [place] [phone] [place] DPM [address] [place] [address] Social History Tobacco Use Types Packs/Day Years Used Date Smoking Tobacco: Never Tobacco Cessation:Counseling Given: Not Answered Alcohol Use Standard Drinks/Week Comments Never 0 (1 standard drink = 0.6 oz pur e alcohol) Comments Unknown Sex and Gender Information Value Date Recorded Sex Assigned at Female 10/07/2022 8:35 AM EDT Legal Sex Female 7:00 PM EDT Gender Identity Female 10/07/2022 8:35 AM EDT Sexual Orientation Not on file COVID-19 Exposure Response Date Recorded In the last 10 days, have yo u been in contact with someone who was confirmed or suspected to have Coronavirus/COVID-19? No / Unsure 10/14/2022 11:24 AM EDT documented as of this encounter Plan of Treatment Upcoming Encounters Date Type Department Care Team ([facility] Contact Info) Description 12/27/2024 4:45 PM EDT Office Visit [facility] [address] [place] [address] Isabella Ivy DPM [address] [facility] [address] [place] [address] documented as of this encounter Visit Diagnoses Not on filedocumented in this encounter Care Teams Spot Facer Relationship Specialty Start Date End Date Pearl Toro MD PCP - General Family Medicine 10/14/22 08/24/24 Pearl Toro MD [address] [place] [address] PCP - General Family Medicine 08/25/24 documented as of this encounter
--- OUTSIDE RECORDS SUMMARY | 2024-11-30 14:17 | XMS_ITS | Encounter Summary ---
Author Organization [facility] Address [facility] [place] [address] Care Team Providers Care Sr. Payroll Manager Name Role Phone Pearl Toro MD Primary Care Provider [phone] Source Comments In the event this information is protected by the Federal Confidentiality of Alcohol and Drug AbusePatient Records regulations: The Federal rules restrict any use of the information to criminally investigate or prosecute any alcohol or drug abuse patient.[facility] Encounter Details Date Type Department Care Team (Late st Contact Info) Description 08/22/2015 Get Medical Advice Neurology [address] [place] [id number] Amisha Freitas MD [address] [place] [phone] RE: Visit Follow Up Question Social [...] on filedocumented in this encounter Care Teams Sr. Payroll Manager Relationship Specialty Start Date End Date Pearl Toro MD [address] [place] [address] PCP - General Family Medicine 07/02/15 documented as of this encounter
--- OUTSIDE RECORDS SUMMARY | 2024-11-30 14:17 | XMS_ITS | Clinical Summary ---
Author Organization [facility] Address [address] [place], [place] [id number] Care Team Providers Care Senior Strategy Manager Name Role Phone Pearl Toro MD Primary Care Provider [phone] Allergies Active Allergy Reactions Criticality Noted Date [...] (FLONASE) 50 mcg/actuation nasal spray Use 1 [place] in each nostril as needed for Cold/Allergy [...] N ot on file 02/22/2020 Data from: https://[email or web address].medicine.[email or web address] Last address used for calculation Not [...] 2) 2018 Diabetes Screening 05/04/2020 05/04/2017, 01/28/2016 Influenza Vaccine (#1) 2024 Procedures Procedure Name Priority Date/Time Associated Diagnosis Comments COMPREHENSIVE METABOLIC PANEL Routine 05/04/2017 11:18 AM EST Lymphocytosis from Last 3 Months or Most Recently Relevant to Health Maintenance Results * (ABNORMAL) COMP METABOLIC PANEL (05/04/2017 11:18 AM EST) Pathologist [facility] Protein, Total 5.6(L) 6.3 - 8.0 g/dL 05/04/2017 9:50 PM EST [facility] Albumin 4.4 3.9 - 4.9 g/dL 05/04/2017 9:50 PM EST [facility] Calcium 9.1 8.5 - 10.2 mg/dL 05/04/2017 9:50 PM EST [facility] Bilirubin, Total 0.7 0.2 - 1.3 mg/dL 05/04/2017 9:50 PM EST [facility] Alkaline Phosphatase 74 32 - 117 U/L 05/04/2017 9:50 PM EST [facility] AST 29 13 - 35 U/L 05/04/2017 9:50 PM EST [facility] Glucose 110(H) 74 - 99 mg/dL 05/04/2017 9:50 PM EST [facility] Comment: The [place] Diabetes Association (ADA) provides guidance for cutoff [...] Standards of Medical Care in Diabetes 2016, [place] Diabetes Association. Diabetes Care. 2016.39(Suppl 1). BUN 15 7 - 21 mg/dL 05/04/2017 9:50 PM [facility] Creatinine 0.89 0.58 - 0.96 mg/dL 05/04/2017 9:50 PM [facility] Sodium 142 136 - 144 mmol/L 05/04/2017 9:50 PM [facility] Potassium 4.1 3.7 - 5.1 mmol/L 05/04/2017 9:50 PM [facility] Chloride 103 97 - 105 mmol/L 05/04/2017 9:50 PM [facility] CO2 26 22 - 30 mmol/L 05/04/2017 9:50 PM [facility] Anion Gap 13 9 - 18 mmol/L 05/04/2017 9:50 PM [facility] ALT 18 7 - 38 U/L 05/04/2017 9:50 PM [facility] eGFR- >60 05/04/2017 9:50 PM [facility] eGFR-All Other Races >60 . 05/04/2017 9:50 PM [facility] Comment: eGFR (Estimated GFR) Units of [...] 05/04/2017 11:20 AM EST us Cady Joseph [facility] Final Re sult [facility] [address] [address] from Last 3 Months or Most Recently Relevant to Health Maintenance Insurance [employer] Care Teams Senior Strategy Manager Relationship Specialty Start Date End Date Pearl Toro MD [address] [place] [address] PCP - General Family Medicine 07/02/15
--- OUTSIDE RECORDS SUMMARY | 2024-11-30 14:17 | XMS_ITS | Clinical Summary ---
Author Organization [facility] Address [address] [place] [address] Care Team Providers Care Electrician Manager Name Role Phone Pearl Toro MD Primary Care Provider [phone] Allergies Active Allergy Reactions Criticality Noted Date [...] tablet 09/23/2022 Active norethindrone-e thinyl estradiol (Femhrt 1) 1-5 MG-MCG tablet 05/30/2022 Active Active Problems Problem Noted Date Diagnosed Date Plantar fascial fibromatosis 10/14/2022 Encounters Date Type Department Care Team Description 11/07/2024 Telephone [facility] [address] [place] [address] Yoselyn Rodriguez MA Order for PT 09/15/2024 2:45 PM EDT Office Visit [facility] [address] [place] [phone] Isabella Ivy DPM Plantar fasciitis (Primary Dx); Pain of right heel 09/15/2024 Bamboo flowsheet [facility] [address] [place] [address] Isabella Ivy DPM 09/15/2024 Travel from Last [...] Care Team (Late st Contact Info) Description 12/27/2024 4:45 PM EDT Office Visit [facility] [address] [place] [phone] Isabella Ivy DPM [address] [place] [address] Health Maintenance Due Date Last Done Comments CT Colonography 1968 Colonoscopy 1968 Colorectal Cancer Screening 1968 FIT-DNA 1968 FIT 1968 FOBT 1968 Sigmoidoscopy 1968 Pap Smear 1989 Cervical Cancer Screening 1998 HPV/Cotest 1998 Mammogram 2008 Influenza Vaccine (#1) 2024 , 12/27/2022, 12/14/2021, Additional history exists Insurance [employer] Care Teams Electrician Manager Relationship Specialty Start Date End Date Pearl Toro MD [address] [place] [phone] PCP - General Family Medicine 08/25/24
--- OUTSIDE RECORDS SUMMARY | 2024-11-30 14:17 | XMS_ITS | Encounter Summary ---
Author Organization [facility] Address [facility] [place] [address] Care Team Providers Care Sales Training Coordinator Name Role Phone Pearl Toro MD Primary Care Provider [phone] Source Comments In the event this information is protected by the Federal Confidentiality of Alcohol and Drug AbusePatient Records regulations: The Federal rules restrict any use of the information to criminally investigate or prosecute any alcohol or drug abuse patient.[facility] Encounter Details Date Type Department Care Team (Late st Contact Info) Description 08/19/2015 Get Medical Advice Neurology [address] [place] [id number] Amisha Freitas MD [address] [place] [phone] RE: Visit Follow Up Question Social [...] on filedocumented in this encounter Care Teams Sales Training Coordinator Relationship Specialty Start Date End Date Pearl Toro MD [address] [place] [address] PCP - General Family Medicine 07/02/15 documented as of this encounter
--- OUTSIDE RECORDS SUMMARY | 2024-11-30 14:17 | XMS_ITS | Encounter Summary ---
Author Organization [facility] Address [address] [place], [place] [address] Care Team Providers Care Court Collections Officer Name Role Phone Pearl Toro MD Primary Care Provider [phone] Source Comments In the event this information is protected by the Federal Confidentiality of Alcohol and Drug AbusePatient Records regulations: The Federal rules restrict any use of the information to criminally investigate or prosecute any alcohol or drug abuse patient.[facility] Encounter Details Date Type Department Care [...] on filedocumented in this encounter Care Teams Court Collections Officer Relationship Specialty Start Date End Date Pearl Toro MD [address] [facility] [place] [address] PCP - General Family Medicine 07/02/15 documented as of this encounter
--- NOTE | 2024-11-30 14:20 | XR_ITS ---
[place] [id number] Patient Name: LUIS FERNANDO BARKLEY MRN: [id number] date: 1970 Sex: F Assigned Patient Location: [facility] Current Patient Location: [facility] Accession/Order Number: [id number] Exam Date: 11/30/2024 14:28 Report Date: 11/30/2024 16:56 At the request of: MEGHAN CRUZ DO Procedure: XR cervical spine 5V CERVICAL SPINE 5 views: CLINICAL HISTORY: Radiculitis Of Right Cervical Region M54.12 COMPARISON: Cervical spine MRI 10/06/2024 FINDINGS: Thcb-ie-[id number] disc space space narrowing C4-7 with intervertebral endplate spurring. No fracture or malalignment. Vertebral heights maintained. No pathologic instability on flexion-extension imaging. Lung apices are clear. XR/XR cervical spine 5V IMPRESSION: Multilevel degenerative changes.. No pathologic instability. Impression dictated by: Rio Pickens M.D. 11/30/2024 4:56 PM Dictation Location: [place] [address] Electronically authenticated by: [id number] Y Date: 11/30/2024 16:56
--- OUTSIDE RECORDS SUMMARY | 2024-11-30 15:25 | XMS_ITS | CCD ---
Author Organization [facility] Care Team Providers Care Photoengraving Retoucher Name Role Phone PEARL ORTEGA Unavailable Unavailable CHANDANA SAGE Unavailable Unavailable PEARL ORTEGA Unavailable Unavailable CHANDANA SAGE Unavailable Unavailable YFN AKINS ([facility]) Unavailable UnavailPEARL Guy Unavailable Unavailable PEARL ORTEGA Primary Care Physician [phone] DR PEARL ORTEGA Attending Unavailable SHANNON, DR PEARL Arredondo Consulting Unavailable DR PEARL ORTEGA Primary Care Unavailable DR PEARL ORTEGA Admitting Unavailable Pearl Ortega Unavailable Pearl Ortega MD Primary Care Provider Pearl Ortega MD Primary Care Provider MATA IVY Attending Unavailable MATA IVY Attending Unavailable AUGUSTIN IBANEZ Attending Unavailable AUGUSTIN IBANEZ Attending Unavailable MATA IVY Attending Unavailable MATA IVY Attending Unavailable MATA IVY Attending Unavailable MATA IVY Attending Unavailable Pearl Ortega MD Primary Care Provider Pearl Ortega MD Attending Provider Noam Whitney Attending Unavailable Noam Whitney Referring Unavailable Noam Whitney Admitting Unavailable Noam Whitney Attending Unavailable Noam Whitney Referring Unavailable Noam Whitney Admitting Unavailable Min Thompson DO Attending Provider [phone] Pearl Ortega MD Referring Provider Fan Sanches MD Attending Provider Allergies Allergy Classification Reported Allergen(s) Allergy Type Date of Onset Reaction(s) Facility (20 sources) azithromycin; Translations: [AZITHROMYCIN] Drug Allergy 08-02-19 16 AOF [facility] Repository (20 sources) Penicillins; Translations: [PENICILLINS] Propensity to adverse reactions to drug (disorder) 08-02-19 16 Rash [facility] Repository (20 sources) Erythromycin; Translations: [erythromycin] Drug Allergy 10-15-19 Antimicrobial susceptibility test (procedure) [facility] (20 sources) Tetracycline; Translations: [tetracycline] Drug Allergy 10-15-19 23 unknown [facility] (7 sources) Clindamycin Drug Allergy 09-04-19 24 Unknown, Unknown Reaction [facility] (20 sources) Doxycycline Drug Allergy 10-15-19 23 Unknown, Unknown Reaction [facility] (4 sources) Penicillin G Drug Allergy Unknown [employer] Other (3 sources) Substance with penicillin structure and antibacterial mechanism of action (substance) Drug allergy 11-27-19 13 Unknown [employer] Other (3 sources) patient allergy list reviewed by nurse or physicia Propensity to adverse reactions 11-27-19 Comment:Done [employer] Other (3 sources) Allergies Reconciled Propensity to adverse reactions Unknown [employer] Other (5 sources) erythromycin base Allergy to substance 09-04-19 Unknown Reaction [facility] Medications Current Medications Medication Drug Class(es) Dates Sig (Normalized) Sig (Original) Ascorbic Acid (10 sources) Vitamin C Start: 03-28-2019 Vitamin C Segun y, Refills(s) 0 Start Date: 03/28/19 Status: Ordered Vitamin C *abdulkadir arredondo review for potential _update for e-prescription and drug interaction check* Active atorvastatin 40 mg oral tablet (19 sources) HMG-CoA Reductase Inhibitor Start: 04-11-2024 Atorvastatin 40 mg tablet Active 0 .ROUTE .COMPLEX 90 April 11, 2024 5:16pm TAKE 1 TABLET DAILY Complies with drug therapy Start: 06-02-2016 End: 04-11-2024 take 1 tablet by mouth once daily Atorvastatin 40 mg tablet Discontinued 40 MG PO Daily May 18, 2023 1:00am April 11, 2024 5:16pm citalopram 20 mg oral tablet (20 sources) Serotonin Reuptake Inhibitor Start: 09-26-2022 take 1 tablet by mouth twice daily Citalopram 20 mg tablet Active 20 MG PO Twice daily May 18, 2023 1:00am Complies with drug therapy Start: 06-02-2016 take 1 tablet by earl th once daily citalopram 10 mg Tab 10 mg = 1 tab(s), Oral, Daily, Refills(s) 0, Anxiety Start Date: 06/02/16 Status: Ordered clobetasol propionate 0.5 mg/ml topical solution (19 sources) Corticosteroid Start: 07-25-2022 clobetasol (Temovate) 0.05 % external solution APPLY DROPS TO SCALP ONCE OR TWICE DAILY NEEDED FOR ITTCHING 07/25/2022 Active cyclobenzaprine hydrochloride 10 mg oral tablet (1 source) Muscle Relaxant Start: 11-29-2024 take 1 tablet by mouth twice daily Cyclobenzaprine 10 mg tablet Active 10 MG PO Twice daily 60 November 29, 2024 12:00am Complies with drug therapy Dextromethorphan / guaiFENesin (6 sources) Uncompetitive F-lbadnl-I-aspartat e Receptor Antagonist, Sigma-1 Agonist Start: 04-18-2020 take 5 mL by mouth every four hours for cough dextromethorphan-gu aifenesin 10 mg-100 mg/5 mL Oral Liq 480 mL 5 mL, Oral, q4hr for cough, 300 mL, Refill(s) 0, [facility], 173, cm, 04/15/20 17:15:00 EST, Height/Length Dosing, 65, kg, 04/15/20 17:15:00 EST, Weight Dosing Start Date: 04/18/20 Status: Ordered estradiol 1 mg oral tablet (20 sources) Estrogen Start: 09-04-2023 take 0.5 mg by mouth once daily Estradiol 1 mg tablet Active 0.5 MG PO Daily September 04, 2023 12:00am off 1 week; repeat cycle Complies with drug therapy Start: 09-04-2023 take 0.5 mg by mouth once segun y Estradiol Active 0.5 MG PO Daily September 04, 2023 12:00am off 1 week; repeat cycle Start: 05-18-2023 Estradiol 0.01 % (0.1 mg/gram) cream Active VAGINAL May 18, 2023 1:00am Complies with drug therapy Start: 09-23-2022 estradiol (Est race) 0.5 MG [...] / norethindrone acetate 1 mg oral tablet (19 sources) Estrogen Start: 05-30-2022 norethindrone- et hinyl [...] Pain/Fever, # 10 tab(s), Refills(s) 0, Pharmacy: [facility] 1986, 173, cm, 04/15/20 17:15:00 EST, Height/Length Dosing, 65, kg, 04/15/20 17:15:00 EST, Weight Dosing Start Date: 04/18/20 Status: Ordered ondansetron 4 mg oral tablet (2 sources) Serotonin-3 Receptor Antagonist Start: 04-18-2020 take 1 tablet by mouth every eight hours as needed for nausea Zofran 4 mg Tab 4 mg = 1 tab(s), Oral, q8hr, PRN Nausea/Vomiting, # 10 tab(s), Refills(s) 0, Pharmacy: [facility] 1986, 173, cm, 04/15/20 17:15:00 EST, Height/Length [...] Drug Class(es) Dates Sig (Normalized) Sig (Original) busPIRone hydrochloride 10 mg oral tablet (20 sources) Start: 05-18-2023 End: 01-06-2024 Buspirone 10 mg tablet Discontinued 10 MG PO Every morning 90 May 19, 2023 2:56pm January 06, 2024 3:58pm Take 1/2 Tablet QAM orally once a day Start: 07-26-2022 End: 05-20-2024 take 1 tablet by mouth once daily in the morning Buspirone 10 mg tablet Discontinued 10 MG PO Every morning January 06, 2024 3:58pm May 20, 2024 9:53am cephalexin 500 mg oral capsule (4 sources) Cephalosporin Antibacterial Start: 03-07-2019 take 1 capsule by mouth every twelve hours Cephalexin 500 MG 1 capsule Orally every 12 hrs for 7 days Feb, Not-Taking/PRN ciprofloxacin 500 mg oral tablet (5 sources) Quinolone Antimicrobial Start: 09-04-2023 End: 05-20-2024 take 1 tablet by mouth twice daily Ciprofloxacin Hcl 500 mg tablet Discontinued 500 MG PO Twice daily September 04, 2023 12:00am May 20, 2024 9:41am L Norgest/E.Estradiol -E.Estrad (9 sources) Progestin, Estrogen, Progestin-containin g Intrauterine Device Start: 05-18-2023 End: 09-04-2023 take 1 tablet by mouth once daily L Norgest/E.Estradiol -E.Estrad (Daysee) 0.15 mg-30 mcg (84)/10 mcg (7) tablets,dose pack,3 month Discontinued 1 TAB PO Daily May 18, 2023 1:00am September 04, 2023 1:18pm take 1 tablet by earl every twenty-four hours Daysee 0.15-0.03 &0.01 MG [...] ed eye Ophthalmic Twice a day Not-Taking indomethacin 25 mg oral capsule (20 sources) Nonsteroidal Anti-inflammatory Drug Start: 05-18-2023 End: 09-20-2024 take 1 capsule by mouth twice daily Indomethacin 25 mg capsule Discontinued 25 MG PO Twice daily 180 May 19, 2023 2:56pm May 20, 2024 9:41am take 1 capsule by mo [facility] every twelve hours Indomethacin 25 MG 1 capsule with food o r milk Orally Twice a day for 30 days Active phenazopyridine hydrochloride 200 mg oral tablet (4 sources) Start: 03-07-2019 take 1 tablet by mouth every eight hours Pyridium 200 MG 1 tablet after meals Orally Three times a day for 2 day(s) Feb, Not-Taking/PRN Problems Active Problems Problem Classification Problem Date Documented Da te Episodic/Chronic Anxiety disorders (19 sources) Anxiety; Translations: [Generalized anxiety disorder] 06-02-2016 Chronic Calculus of urinary tract (14 sources) Kidney stone; Translations: [Calculus of kidney] Onset: 2 05-21-2020 Episodic Diseases of white blood cells (4 sources) Lymphocytosis (symptomatic); Translations: [Leukocytosis] Onset: Chronic Disorders of lipid metabolism (20 sources) Hypercholesterolemia; Translations: [Hyperlipidemia] 06-02-2016 Chronic Esophageal [...] given; Translations: [Encounter for immunization] Episodic Leukemias (18 sources) Chronic lymphoid leukemia, disease; Translations: [Chronic [...] foot] 01-06-2024 Episodic Other connective tissue disease (4 sources) Plantar fasciitis; Translations: [Plantar fascial fibromatosis] 05-04-2024 Episodic Other connective tissue disease (2 sources) Bilateral heel pain; Translations: [Pain in right foot] 05-04-2024 Episodic Other connective tissue disease (2 sources) Pain in right heel; Translations: [Pain in right foot] 09-15-2024 Episodic Other connective tissue disease (2 sources) Muscle spasm of cervical muscle of neck Episodic Other connective tissue disease (2 sources) Muscle pain; Translations: [Myalgia, unspecified site] 11-29-2024 Episodic Other eye disorders (6 sources) Tear film insufficiency 06-02-2016 Episodic Other gastrointestinal disorders (6 sources) Irritable bowel syndrome 11-12-2018 Chronic Other nervous system disorders (4 sources) Chronic pain; Translations: [Other chronic pain] Chronic Other nervous system disorders (4 sources) Neuroma; Translations: [Other specified mononeuropathies] 02-24-2024 Chronic Other nervous system disorders (12 sources) Trigeminal neuralgia; Translations: [Trigeminal neuralgia] Onset: 8 05-18-2023 Episodic Other non-traumatic joint disorders (2 sources) Pain in right shoulder; Translations: [Right shoulder pain] 11-09-2024 Episodic Other upper respiratory disease (11 sources) [...] Spondylosis; intervertebral disc disorders; other back problems (19 sources) Cervical radiculopathy; Translations: [Radiculopathy, cervical region] Episodic Superficial injury; contusion (4 sources) Superficial injury of hand with infection; Translations: [Abrasion of left hand, initial encounter] 09-07-2023 Episodic Unclassified (1 source) Unknown / UNK(Unknown) Onset: 7 Unclassified (6 sources) Asymptomatic microscopic hematuria 05-21-2020 Unclassified (2 sources) M54.12 - Radiculopathy, cervical region,M62.830 - Muscle spasm of back Urinary tract infections (10 sources) Dysuria-frequency syndrome; [...] Onset: 12-08-2012 Episodic Other connective tissue disease (19 sources) Plantar fascial fibromatosis; Translations: [Plantar fascial fibromatosis] Onset: 10-14-2022 10-14-2022 Episodic Other nervous system disorders (1 source) Atypical facial pain; Translations: [Atypical facial pain] Onset: 11-03-2016 Episodic Results Test Name Value Interpretation Reference Range Facility [place] Mamm Diag w/CAD if perf a nd 3D Bilon 10-29-2024 MA Mamm Diag w/CAD if perf and 3D Justice Exam Date/Time: 10/28/2024 09:29 EDT Reason for Exam: R92.8 Report IMPRESSION: BIRADS 2 BENIGN FINDINGS, NORMAL INTERVAL FOLLOW-UP. CLINICAL HISTORY: Diagnostic. Six-month follow-up. History of abnormal left breast mammogram. COMPARISON: Prior mammograms and ultrasounds dating back to 2020. RESULT: 3D tomosynthesis of bilateral breasts was performed. Category C - The breasts are heterogenously dense, which may obscure small masses. There is no suspicious mass, asymmetry, architectural distortion, or calcification. Stable asymmetries. Vascular calcifications: Absent. CAD analysis was performed and used in the interpretation. Dense Breast: Yes Follow-up: 12 MONTH RECALL. Board Certified Radiologists. Accredited by the ACR and FDA. MAMMOGRAPHY IS VERY IMPORTANT TO YOUR HEALTH. THE [employer] GUIDELINES RECOMMEND THAT WOMEN 40 YEARS OF AGE AND OLDER SHOULD HAVE A MAMMOGRAM EVERY YEAR. A REMINDER LETTER WILL BE SENT AT THE APPROPRIATE TIME. THIS FACILITY UTILIZES A REMINDER SYSTEM TO ENSURE ALL PATIENTS RECEIVE REMINDER NOTIFICATIONS AT THE APPROPRIATE TIME BASED ON THE RECOMMENDATIONS OF THIS EXAM. THIS INCLUDES REMINDERS FOR ROUTINE SCREENING MAMMOGRAMS, DIAGNOSTIC MAMMOGRAMS IN WHICH THE PATIENT IS ASKED TO RETURN FOR ADDITIONAL VIEWS, OR OTHER BREAST IMAGING INTERVENTIONS WHEN APPROPRIATE. THE PATIENT WILL BE PLACED IN THE APPROPRIATE REMINDER SYSTEM INCLUDING A REMINDER AT THE APPROPRIATE TIME FOR ANY PENDING ADDITIONAL VIEWS. Report Ordering Provider: Noam Whitney FINAL REPORT Dictated: 10/29/2024 11:25 am Yonas Claros MD Signed (Electronic Signature): 10/29/2024 11:25 am Signed by: Yonas Claros MD Transcribed by: RENATO Technologist: DAMIÁN Assessment: BI-RADS Category 2-Benign finding Recommendation: Normal interval follow-up Normal [facility] Basophils/100 WBC Manual cnt (Bld)on 05-20-2024 Basophils/100 WBC (Bld) Basophils/100 leukocytes in Blood by Manual count 0.2-2.0 [facility] Eosinophils/100 WBC Manual c nt (Bld)on 05-20-2024 Eosinophils/100 WBC (Bld) Eosinophils/100 leukocytes in Blood by Manual count 0.9-7.0 [facility] Erythrocyte distribution wid th Auto (RBC) [Ratio]on 05-20-2024 Erythrocyte distribution width (RBC) [Ratio] Erythrocyte distribution width [Ratio] by Automated count 11.0-15.0 [facility] Hematocrit Auto (Bld) [Volum e fraction]on 05-20-2024 Hematocrit (Bld) [Volume fraction] Hematocrit [Volume Fraction] of Blood by Automated count 36.0-48.0 [facility] Hemoglobin [Mass/volume] in Bloodon 05-20-2024 Hemoglobin (Bld) [Mass/Vol] Hemoglobin [Mass/volume] in Blood 12.0-16.0 [facility] Laboratory - Hematology and Cell countson 05-20-2024 Lymphocytes/100 WBC (Bld) 61.0 % High 20.5-60.0 [facility] Monocytes/100 WBC (Bld) 2.0 % 1.7-12.0 [facility] Leukocytes [#/volume] correc ruben for nucleated erythrocytes in Blood by Automated counon 05-20-2024 WBC corrected for nucl RBC Auto (Bld) [#/Vol] Leukocytes [#/volume] corrected for nucleated erythrocytes in Blood by Automated coun High 4.0-11.0 [facility] MCH Auto (RBC) [Entitic mass ]on 05-20-2024 MCH (RBC) [Entitic mass] MCH [Entitic mass] by Automated count 26.7-34.0 [facility] MCHC Auto (RBC) [Mass/Vol]on 05-20-2024 MCHC (RBC) [Mass/Vol] MCHC [Mass/volume] by Automated count 29.9-35.2 [facility] MCV Auto (RBC) [Entitic vol] on 05-20-2024 MCV (RBC) [Entitic vol] MCV [Entitic volume] by Automated count 81.0-99.0 [facility] No Panel Informationon 05-20 Absolute Basophils (Manual) 0.17 10 3/uL High 0.00-0.10 [facility] Eosinophils # (Manual) 0.17 10 3/uL 0.00-0.70 [facility] Lymphocytes # (Manual) 10.49 10 3/uL High 1.20-3.80 [facility] Monocytes # (Manual) 0.34 10 3/uL 0.30-0.80 [facility] Reactive Lymphocytes 0.51 [facility] Reactive Lymphocytes 3.0 % [facility] Segmented Neutrophils # (Manual) 5.50 10 3/uL 1.4-6.5 [facility] Platelet mean volume Auto (B ld) [Entitic vol]on 05-20-2024 Platelet mean volume (Bld) [Entitic vol] Platelet mean volume [Entitic volume] in Blood by Automated count Low 9.5-13.5 [facility] Platelets Auto (Bld) [#/Vol] on 05-20-2024 Platelets (Bld) [#/Vol] Platelets [#/volume] in Blood by Automated count 150-450 [facility] RBC Auto (Bld) [#/Vol]on RBC (Bld) [#/Vol] Erythrocytes [#/volu me] in Blood by Automated count 4.20-5.40 [facility] Segmented neutrophils/100 WB C Manual cnt (Bld)on 05-20-2024 Segmented neutrophils/100 WBC (Bld) Manual blood segmented neutrophils/100 leukocytes Low 43.0-75.0 [facility] MA Mamm Diag w/CAD if perf [...] VERY IMPORTANT TO YOUR HEALTH. THE CURRENT [employer] [...] 2-Benign finding Recommendation: Normal interval follow-up Normal [facility] CBC AUTO DIFFon 04-15-2022 BASO # 0.1 103/ul Normal 0.0-0.1 [facility] Comment on above: Performed By: #### C BC #### [facility] [address] [place] [address] Dr. Lauri Acosta Basophils/100 WBC (Bld) 0.5 % Normal 0.2-2.0 [facility] Comment on above: Performed By: #### C BC #### [facility] [address] [place] [address] Dr. Lauri Acosta EO # 0.2 103/ul Normal 0.0-0.7 [facility] Comment on above: Performed By: #### C BC #### [facility] [address] [place] [address] Dr. Lauri Acosta Eosinophils/100 WBC (Bld) 1.2 % Normal 0.9-7.0 [facility] Comment on above: Performed By: #### C BC #### [facility] [address] [place] [address] Dr. Lauri Acosta Erythrocyte distribution width (RBC) [Ratio] 12.5 % Normal 11.0-15.0 [facility] Comment on above: Performed By: #### C BC #### [facility] [address] [place] [address] Dr. Lauri Acosta Hematocrit (Bld) [Volume fraction] 41.6 % Normal 36.0-48.0 [facility] Comment on above: Performed By: #### C BC #### [facility] [address] [place] [address] Dr. Lauri Acosta Hemoglobin (Bld) [Mass/Vol] 14.0 g/dL Normal 12.0-16.0 [facility] Comment on above: Performed By: #### C BC #### [facility] [address] [address] [address] Lauri Acosta IG # 0.03 10e3/ul Normal 0.00-0.03 [facility] Comment on above: Performed By: #### C BC #### [facility] [address] [place] [address] Dr. Lauri Acosta IG % 0.2 % Normal 0.0-0.5 [facility] Comment on above: Performed By: #### C BC #### [facility] [address] [place] [address] Dr. Lauri Acosta LYMPH # 9.9 103/ul Critically high 1.2-3.8 [facility] Comment on above: Performed By: #### C BC #### [facility] [address] [place] [address] Dr. Lauri Acosta Lymphocytes/100 WBC (Bld) 68.4 % Critically high 20.5-60.0 [facility] Comment on above: Performed By: #### C BC #### [facility] [address] [place] [address] Dr. Lauri Acosta MANUAL DIFF REQ NO Normal [facility] Comment on above: Performed By: #### C BC #### [facility] [address] [place] [address] Dr. Lauri Acosta MCH (RBC) [Entitic mass] 31.3 pg Normal 26.7-34.0 [facility] Comment on above: Performed By: #### C BC #### [facility] [address] [place] [address] Dr. Lauri Acosta MCHC (RBC) [Mass/Vol] 33.7 g/dL Normal 29.9-35.2 [facility] Comment on above: Performed By: #### C BC #### [facility] [address] [place] [address] Dr. Lauri Acosta MCV (RBC) [Entitic vol] 92.9 fL Normal 81.0-99.0 [facility] Comment on above: Performed By: #### C BC #### [facility] [address] [place] [address] Dr. Lauri Acosta MONO # 0.6 103/ul Normal 0.3-0.8 [facility] Comment on above: Performed By: #### C BC #### [facility] [address] [place] [address] Dr. Lauri Acosta Monocytes/100 WBC (Bld) 3.9 % Normal 1.7-12.0 [facility] Comment on above: Performed By: #### C BC #### [facility] [address] [place] [address] Dr. Lauri Acosta NEUT # 3.7 103/ul Normal 1.4-6.5 [facility] Comment on above: Performed By: #### C BC #### [facility] [address] [place] [address] Dr. Lauri Acosta Neutrophils/100 WBC (Bld) 25.8 % Critically low 43.0-75.0 [facility] Comment on above: Performed By: #### C BC #### [facility] [address] [place] [address] Dr. Lauri Acosta Platelet mean volume (Bld) [Entitic vol] 9.2 fL Critically low 9.5-13.5 [facility] Comment on above: Performed By: #### C BC #### [facility] [address] [place] [address] Dr. Lauri Acosta PLT 286 103/ul Normal 150-450 [facility] Comment on above: Performed By: #### C BC #### [facility] [address] [place] [address] Dr. Lauri Acosta RBC 4.48 106/ul Normal 4.20-5.40 [facility] Comment on above: Performed By: #### C BC #### [facility] [address] [place] [address] Dr. Lauri Acosta WBC 14.5 103/ul Critically high 4.0-11.0 [facility] Comment on above: Performed By: #### C BC #### [facility] [address] [place] [address] Dr. Lauri Acosta LIPID PROFILEon 04-15-2022 CHOL-HDL RATIO NORM SEE BELOW Normal [facility] Comment on above: Result Comment: 3.3 - 4.4 LOW RISK 4.4 - 7.1 AVERAGE RISK 7.1 - 11.0 MODERATE RISK >11.0 HIGH RISK Performed By: #### C MP, LIPID #### [facility] [address] [place], [place] [address] Dr. Lauri Acosta Cholesterol [Mass/Vol] 168 mg/dL Normal <=200 [facility] Comment on above: Performed By: #### C MP, LIPID #### [facility] [address] [address] [address] Lauri Acosta Cholesterol in HDL [Mass/Vol] 47 mg/dL Normal 40-60 [facility] Comment on above: Performed By: #### C MP, LIPID #### [facility] [address] [address] [address] Lauri Acosta Cholesterol in LDL [Mass/Vol] 99.6 mg/dL Normal [facility] Comment on above: Performed By: #### C MP, LIPID #### [facility] [address] [address] [address] Lauri Acosta Cholesterol.total/C holesterol in HDL [Mass ratio] 3.6 {ratio} Normal [facility] Comment on above: Performed By: #### C MP, LIPID #### [facility] [address] [address] [address] Lauri Acosta HDL NORMAL > or = 60 mg/dl - LO W CARDIOVASCULAR RISK <40 mg/dl - HIGH CARDIOVASCULAR RISK Normal [facility] Comment on above: Performed By: #### C MP, LIPID #### [facility] [address] [address] [address] Lauri Acosta LDL CALC NORMAL SEE BELOW Normal [facility] Comment on above: Result Comment: <100 mg/dl OPTIMAL 100 - 129 mg/dl NEAR OR ABOVE OPTIMAL 130 - 159 mg/dl BORDERLINE HIGH 160 - 189 mg/dl HIGH >190 mg/dl VERY HIGH Performed By: #### C MP, LIPID #### [facility] [address] [address] [address] Lauri Acosta Triglyceride [Mass/Vol] 107 mg/dL Normal <=150 [facility] Comment on above: Performed By: #### C MP, LIPID #### [facility] [address] [place] [address] Dr. Lauri Acosta VLDL CALC 21.4 mg/dL Normal [facility] Comment on above: Performed By: #### C MP, LIPID #### [facility] [address] [place] [address] Dr. Lauri Acosta PROF 14(COMP METB)on 023 Albumin [Mass/Vol] 3.8 g/dL Normal 3.4-5.0 [facility] Comment on above: Performed By: #### C MP, LIPID #### [facility] [address] [place] [address] Dr. Lauri Acosta Albumin/Globulin [Mass ratio] 1.2 {ratio} Normal [facility] Comment on above: Performed By: #### C MP, LIPID #### [facility] [address] [place] [address] Dr. Lauri Acosta ALP [Catalytic activity/Vol] 88 U/L Normal 46-116 [facility] Comment on above: Performed By: #### C MP, LIPID #### [facility] [address] [place] [address] Dr. Lauri Acosta ALT [Catalytic activity/Vol] 23 U/L Normal 14-59 [facility] Comment on above: Performed By: #### C MP, LIPID #### [facility] [address] [place] [address] Dr. Lauri Acosta Anion gap [Moles/Vol] 14.7 mmol/L Normal [facility] Comment on above: Performed By: #### C MP, LIPID #### [facility] [address] [place] [address] Dr. Lauri Acosta AST [Catalytic activity/Vol] 21 U/L Normal 15-37 [facility] Comment on above: Performed By: #### C MP, LIPID #### [facility] [address] [place] [address] Dr. Lauri Acosta Bilirubin [Mass/Vol] 1.2 mg/dL Critically high 0.2-1.0 [facility] Comment on above: Performed By: #### C MP, LIPID #### [facility] [address] [place] [address] Dr. Lauri Acosta Calcium [Mass/Vol] 9.2 mg/dL Normal 8.5-10.1 [facility] Comment on above: Performed By: #### C MP, LIPID #### [facility] [address] [place] [address] Dr. Lauri Acosta Chloride [Moles/Vol] 104 mmol/L Normal 98-107 [facility] Comment on above: Performed By: #### C MP, LIPID #### [facility] [address] [place] [address] Dr. Lauri Acosta CO2 [Moles/Vol] 28.8 mmol/L Normal 21.0-32.0 [facility] Comment on above: Performed By: #### C MP, LIPID #### [facility] [address] [place] [address] Dr. Lauri Acosta Creatinine [Mass/Vol] 0.82 mg/dL Normal 0.55-1.02 [facility] Comment on above: Performed By: #### C MP, LIPID #### [facility] [address] [place] [address] Dr. Lauri Acosta EGFR-AF KENYAN >60 Normal >=60 [facility] Comment on above: Performed By: #### C MP, LIPID #### [facility] [address] [place] [address] Dr. Lauri Acosta EGFR-NON AF KENYAN >60 Normal >=60 [facility] Comment on above: Performed By: #### C MP, LIPID #### [facility] [address] [place] [address] Dr. Lauri Acosta Globulin (S) [Mass/Vol] 3.1 g/dL Normal [facility] Comment on above: Performed By: #### C MP, LIPID #### [facility] [address] [place] [address] Dr. Lauri Acosta Glucose [Mass/Vol] 96 mg/dL Normal 74-106 [facility] Comment on above: Performed By: #### C MP, LIPID #### [facility] [address] [place] [address] Dr. Lauri Acosta Potassium [Moles/Vol] 4.5 mmol/L Normal 3.5-5.1 [facility] Comment on above: Performed By: #### C MP, LIPID #### [facility] [address] [place] [address] Dr. Lauri Acosta Protein [Mass/Vol] 6.9 g/dL Normal 6.4-8.2 [facility] Comment on above: Performed By: #### C MP, LIPID #### [facility] [address] [place] [address] Dr. Lauri Acosta Sodium [Moles/Vol] 143 mmol/L Normal 136-145 [facility] Comment on above: Performed By: #### C MP, LIPID #### [facility] [address] [place] [address] Dr. Lauri Acosta Urea nitrogen [Mass/Vol] 15.0 mg/dL Normal 7.0-18.0 [facility] Comment on above: Performed By: #### C MP, LIPID #### [facility] [address] [place] [address] Dr. Lauri Acosta Urea nitrogen/Creatinine [Mass ratio] 18.3 mg/mg Normal [facility] Comment on above: Performed By: #### C MP, LIPID #### [facility] [address] [place] [address] Dr. Lauri Acosta Comp Metabolic Panelon 05-04 Alanine aminotransferase (ALT) 18 U/L Normal 7-38 [facility] Comment on above: Performed By: #### C MP ####[facility] [address] [place], [place] [phone] Albumin 4.4 g/dL Normal 3.9-4.9 [facility] Comment on above: Performed By: #### C MP ####[facility] [address] [place], [place] [phone] Alkaline phosphatase (ALP) 74 U/L Normal 32-117 [facility] Comment on above: Performed By: #### C MP ####[place] [address] [place] [place] [phone] Anion gap 13 mmol/L Normal 9-18 [facility] Comment on above: Performed By: #### C MP ####[place] [address] [phone] Aspartate aminotransferase (AST) 29 U/L Normal 13-35 [facility] Comment on above: Performed By: #### C MP ####[place] [address] [phone] Bilirubin (total) 0.7 mg/dL Normal 0.2-1.3 [facility] Comment on above: Performed By: #### C MP ####[place] [address] [place] [phone] Calcium 9.1 mg/dL Normal 8.5-10.2 [facility] Comment on above: Performed By: #### C MP ####[place] [address] [place] [phone] Chloride 103 mmol/L Normal 97-105 [facility] Comment on above: Performed By: #### C MP ####[place] [address] [phone] CO2 26 mmol/L Normal 22-30 [facility] Comment on above: Performed By: #### C MP ####[place] [address] [place] [phone] Creatinine 0.89 mg/dL Normal 0.58-0.96 [facility] Comment on above: Performed By: #### C MP ####[place] [address] [place] [phone] eGFR (non-black) mL/min/{1.73_m2} [facility] Comment on above: Result Comment: eGFR (Estimated [...] actual GFR. Performed By: #### C MP ####[address] [phone] Glucose mass conc 110 mg/dL High 74-99 [facility] Comment on above: Result Comment: The [place] Diabetes Association (ADA) provides guidance for cutoff [...] Standards of Medical Care in Diabetes 2016, [place] Diabetes Association. Diabetes Care. 2016.39(Suppl 1). Performed By: #### C MP ####[facility] [place], [place] [phone] Potassium molar conc 4.1 mmol/L Normal 3.7-5.1 [facility] Comment on above: Performed By: #### C MP ####[facility] [place], [place] [phone] Protein 5.6 g/dL Low 6.3-8.0 [facility] Comment on above: Performed By: #### C MP ####[place] [address] [place], [place] [phone] Sodium 142 mmol/L Normal 136-144 [facility] Comment on above: Performed By: #### C MP ####[facility] [place], [place] [phone] Urea nitrogen 15 mg/dL Normal 7-21 [facility] Comment on above: Performed By: #### C MP ####[facility] [place], [place] [phone] Remote Abs Gran + CBC (for F HC use only)on 05-04-2017 Absol Gran Count 4.78 k/uL Normal 1.45-7.50 [facility] Erythrocyte distribution width Auto Ratio (RBC) 12.9 % Normal 11.5-15.0 [facility] Erythrocytes (RBC) 4.49 10*6/uL Normal 3.90-5.20 [facility] Hematocrit (HCT) 41.1 % Normal 36.0-46.0 [facility] Hemoglobin mass conc (Bld) 13.5 g/dL Normal 11.5-15.5 [facility] MCH 30.1 pG Normal 26.0-34.0 [facility] MCHC mass conc (RBC) 32.8 g/dL Normal 30.5-36.0 [facility] MCV 91.5 fL Normal 80.0-100.0 [facility] Platelet mean volume (PMV) 10.0 fL Normal 9.0-12.7 [facility] Platelets 283 10*3/uL Normal 150-400 [facility] WBC (Leukocytes) 19.86 10*3/uL High 3.70-11.00 [facility] CNOVSPon 11-03-2016 CNOVSP Visit (SP) Office ([place]) LUIS FERNANDO SOLO ([id number]) 1970 FDate Time Provider Department11/03/16 11:15 AM CHANDANA SAGE During your visit today, we recorded the following information about you: Temperature Pulse Respiration Blood pressure 98.9 degrees 85/minute 16/minute 138/91 Weight Height 68.2 kg 1.689 Yanelijalil Frank Alona, DO 11/07/2016 10:20 AM SignedPATIENT NAME: Luis Fernando SoloMRN: [id number] PHYSICIAN: Pearl Ortega MD ([facility])[address] [facility] [id number] CARE PHYSICIAN: Pearl Ortega MDOTHER PHYSICIANS:CHIEF COMPLAINT: [...] (FLONASE) 50 mcg/actuation nasal spray Use 1 Gomer in each nostrilas needed for Cold/Allergy Symptoms.loratadine [...] I answered all questions satisfactorily..Antony Sage D.O.Medical OncologistPal[place], [place]Referring Provider: PEARL ORTEGA [[id number]]Allergies As of Date: 11/03/2016 Noted Allergy ReactionARITHROMYCIN [...] dur* FLUTICASONE 50 MCG/ACTUATION * Use 1 Gomer in each nostril a* LORATADINE 10 MG [...] by CHANDANA SAGE DO on 11/07/16 Normal [facility] LDon 11-03-2016 LD 156 U/L Normal 135-214 [facility] Comment on above: Performed By: #### L D6 ####[facility] [address] [place], [place] [phone] PROGRESSon 11-03-2016 PROGRESS HNO ID: [id number] thor: Chandana Monika Kendall: (none)Author Type: PhysicianType: Progress NotesFiled: 11/07/2016 10:20 AMNote Text:PATIENT NAME: Luis Fernando SoloMRN: [id number] PHYSICIAN: Pearl Ortega MD ([facility])[address] [facility] [id number] CARE PHYSICIAN: Pearl Ortega MDOTHER PHYSICIANS:CHIEF COMPLAINT: [...] (FLONASE) 50 mcg/actuation nasal spray Use 1 Gomer in eachnostril as needed for Cold/Allergy Symptoms.loratadine [...] I answered all questions satisfactorily..Antony Sage D.O.Medical OncologistNEA [facility] Abs Gran + CBC (for F HC use only)on 11-03-2016 Absol Gran Count 4.84 k/uL Normal 1.45-7.50 [facility] Erythrocyte distribution width Auto Ratio (RBC) 13.5 % Normal 11.5-15.0 [facility] Erythrocytes (RBC) 4.49 10*6/uL Normal 3.90-5.20 [facility] Hematocrit (HCT) 42.1 % Normal 36.0-46.0 [facility] Hemoglobin mass conc (Bld) 13.7 g/dL Normal 11.5-15.5 [facility] MCH 30.5 pG Normal 26.0-34.0 [facility] MCHC mass conc (RBC) 32.5 g/dL Normal 30.5-36.0 [facility] MCV 93.8 fL Normal 80.0-100.0 [facility] Platelet mean volume (PMV) 9.9 fL Normal 9.0-12.7 [facility] Platelets 305 10*3/uL Normal 150-400 [facility] WBC (Leukocytes) 19.84 10*3/uL High 3.70-11.00 [facility] Remote iSTAT BMP (for [facility] us e only)on 11-03-2016 Anion gap 11 mmol/L Normal 0-15 [facility] BUN (urea nitrogen) 16 mg/dL Normal 8-25 [facility] Chloride 105 mmol/L Normal 98-110 [facility] CO2 24 mmol/L Normal 23-32 [facility] Creatinine 0.90 mg/dL Normal 0.70-1.40 [facility] eGFR (non-black) mL/min/{1.73_m2} Normal [facility] Comment on above: Result Comment: eGFR [...] Glucose mass conc 76 mg/dL Normal 65-100 [facility] Ionized Calcium, WB 1.19 mmol/L Normal 1.08-1.30 [facility] Comment on above: Result Comment: Gallo smyth note: This value represents ionized calcium not total calcium. Potassium molar conc 3.7 mmol/L Normal 3.5-5.0 [facility] Sodium 140 mmol/L Normal 132-148 [facility] Vital Signs Date Time Vital Sign Value Performing Clinician Faci lity 11-07-2024 09:21-0400 Body height 172.72 cm Pearl Ortega MD Work Phone: [facility] 11-07-2024 09:21-0400 Body mass index (BMI) [Ratio] 21.7 kg/m2 Pearl Ortega MD Work Phone: [facility] 11-07-2024 09:21-0400 Body weight 65 kg Pearl Ortega MD Work Phone: [facility] 09-20-2024 14:05-0400 Body height 170.18 cm Pearl Ortega MD Work Phone: [facility] 09-20-2024 14:05-0400 Body mass index (BMI) [Ratio] 22.4 kg/m2 Pearl Ortega MD Work Phone: [facility] 09-20-2024 14:05-0400 Body weight 65.09 kg Pearl Ortega MD Work Phone: [facility] 09-20-2024 14:05-0400 Diastolic blood pressure 80 mm[Hg] Pearl Ortega MD Work Phone: [facility] 09-20-2024 14:05-0400 Heart rate 70 /min Pearl Ortega MD Work Phone: [facility] 09-20-2024 14:05-0400 Systolic blood pressure 113 mm[Hg] Pearl Ortega MD Work Phone: [facility] 05-20-2024 08:37-0500 Body height 170.18 cm [facility] 05-20-2024 08:37-0500 Body mass index (BMI) [Ratio] 22.2 kg/m2 [facility] 05-20-2024 08:37-0500 Body weight 64.41 kg [facility] 05-20-2024 08:37-0500 Diastolic blood pressure 77 mm[Hg] [facility] 05-20-2024 08:37-0500 Heart rate 65 /min [facility] 05-20-2024 08:37-0500 Systolic blood pressure 113 mm[Hg] [facility] 09-04-2023 13:11-0400 Body height 170.18 cm [facility] 09-04-2023 13:11-0400 Body mass index (BMI) [Ratio] 21.9 kg/m2 [facility] 09-04-2023 13:11-0400 Body weight 63.5 kg [facility] 09-04-2023 13:11-0400 Diastolic blood pressure 73 mm[Hg] [facility] 09-04-2023 13:11-0400 Heart rate 80 /min [facility] 09-04-2023 13:11-0400 Systolic blood pressure 105 mm[Hg] [facility] 07-12-2021 11:59-0400 Blood Pressure Location Poli PEDRO [facility] 07-12-2021 11:59-0400 Diastolic blood pressure 72 mm[Hg] Poli VASQUEZ [facility] 07-12-2021 11:59-0400 Heart rate 68 /min Poli VASQUEZ [facility] 07-12-2021 11:59-0400 Systolic blood pressure 110 mm[Hg] Poli VASQUEZ [facility] Encounters Encounter Date Encounter Type Care Provider Facility Start: 11-29-2024 End: 11-29-2024 ambulatory Pearl Ortega MD Work Phone: [facility] Work Phone: Start: 11-29-2024 End: 11-29-2024 Patient encounter procedure Fan Boucher [facility] Work Phone: Start: 11-07-2024 End: 11-08-2024 Telephone encounter Yoselyn Rodriguez MA [facility] Comment on above: Order for PT Start: 11-07-2024 End: 11-07-2024 ambulatory Pearl Ortega MD Work Phone: [facility] Work Phone: Start: 11-07-2024 End: 11-07-2024 Patient encounter procedure Min Thompson DO [facility] Work Phone: Start: 10-28-2024 End: 10-28-2024 ambulatory Noam Mercado [facility] Facility:[facility] Start: 09-20-2024 End: 09-20-2024 ambulatory Pearl Ortega MD Work Phone: [facility] Work Phone: Start: 09-20-2024 End: 09-20-2024 Patient encounter procedure Pearl Ortega MD -[facility] Work Phone: Start: 09-15-2024 End: 09-15-2024 Office outpatient visit 15 minutes Mata Ivy DPM Work Phone: [facility] Comment on above: Plantar fasciitis (P rimary Dx); Pain of right heel Start: 09-15-2024 End: 09-15-2024 ambulatory MATA IVY Not Available Start: 09-15-2024 End: 09-15-2024 Bamboo flowsheet Mata Ivy DPM Work Phone: [facility] Start: 09-15-2024 End: 09-15-2024 Bamboo flowsheet Mata Ivy DPM Work Phone: [facility] Start: 05-20-2024 End: 05-20-2024 ambulatory [facility] Work Phone: Start: 05-20-2024 End: 05-20-2024 Patient encounter procedure [facility] Physician [facility] Work Phone: Start: 05-04-2024 End: 05-04-2024 Bamboo flowsheet Mata Ivy DPM Work Phone: [facility] Start: 05-04-2024 End: 05-04-2024 Bamboo flowsheet Mata Ivy DPM Work Phone: [facility] Start: 05-04-2024 End: 05-04-2024 ambulatory MATA IVY Not Available Start: 05-04-2024 End: 05-04-2024 Office outpatient visit 25 minutes Mata Ivy DPM Work Phone: [facility] Comment on above: Plantar fasciitis (P rimary Dx); Pain of both heels Start: 04-22-2024 End: 04-22-2024 ambulatory Noam Whitney Facility:[facility] Start: 04-22-2024 End: 04-22-2024 Patient encounter procedure Noam Whitney [facility] Start: 03-29-2024 End: 03-29-2024 Office outpatient visit 15 minutes Mata Ivy DPM Work Phone: [facility] Comment on above: Capsulitis of foot ( Primary Dx); Right foot pain; Neuroma digital nerve Start: 03-29-2024 End: 03-29-2024 ambulatory MATA IVY Not Available Start: 03-29-2024 End: 03-29-2024 Bamboo flowsheet Mata Ivy DPM Work Phone: [facility] Start: 03-29-2024 End: 03-29-2024 Bamboo flowsheet Mata Ivy DPM Work Phone: [facility] Start: 02-24-2024 End: 02-24-2024 Bamboo flowsheet Mata Ivy DPM Work Phone: [facility] Start: 02-24-2024 End: 02-24-2024 Bamboo flowsheet Mata Ivy DPM Work Phone: [facility] Start: 02-24-2024 End: 02-24-2024 ambulatory MATA IVY Not Available Start: 02-24-2024 End: 02-24-2024 Office outpatient visit 15 minutes Mata Ivy DPM Work Phone: [facility] Comment on above: Capsulitis of foot ( Primary Dx); Right foot pain; Neuroma digital nerve Start: 01-27-2024 End: 01-27-2024 Office outpatient visit 15 minutes Mata Ivy DPM Work Phone: [facility] Comment on above: Capsulitis of foot ( Primary Dx); Right foot pain Start: 01-27-2024 End: 01-27-2024 ambulatory MATA IVY Not Available Start: 01-27-2024 End: 01-27-2024 Bamboo flowsheet Mata Ivy DPM Work Phone: [facility] Start: 01-27-2024 End: 01-27-2024 Bamboo flowsheet Mata Ivy DPM Work Phone: [facility] Start: 01-06-2024 End: 01-06-2024 Bamboo flowsheet Mata Ivy DPM Work Phone: [facility] Start: 01-06-2024 End: 01-06-2024 Bamboo flowsheet Mata Ivy DPM Work Phone: [facility] Start: 01-06-2024 End: 01-06-2024 Office outpatient visit 25 minutes Mata Ivy DPM Work Phone: [facility] Comment on above: Capsulitis of foot ( Primary Dx); Right foot pain Start: 01-06-2024 End: 01-06-2024 ambulatory MATA IVY Not Available Start: 10-30-2023 End: 10-30-2023 Patient encounter procedure Noam Whitney [facility] Start: 10-07-2023 End: 10-07-2023 ambulatory AUGUSTIN Agustin MARCELLE Not Available Start: 09-22-2023 End: 09-22-2023 ambulatory AUGUSTIN S LIEBENTCHRISTIANO Not Available Start: 09-04-2023 End: 09-04-2023 ambulatory [facility] Work Phone: Start: 09-04-2023 End: 09-04-2023 Patient encounter procedure [facility] Work Phone: Start: 05-15-2023 Patient encounter status [facility] Start: 04-24-2023 End: 04-24-2023 Patient encounter procedure Noam Whitney [facility] Start: 04-13-2023 End: 04-13-2023 ambulatory Pearl Ortega Other [employer] Other Start: 04-13-2023 Office outpatient vi sit 15 minutes Pearl Ortega [facility] Start: 12-30-2022 End: 12-30-2022 ambulatory Pearl Ortega Other [employer] Other Start: 12-30-2022 Telephone encounter Pearl Ortega [facility] Start: 10-21-2022 End: 10-21-2022 ambulatory Pearl Ortega Other [employer] Other Start: 10-21-2022 Telephone encounter Pearl Ortega [facility] Start: 10-10-2022 End: 10-10-2022 Patient encounter procedure Noam Coleten [facility] Start: 04-16-2022 Encounter for genera l adult medical examination without abnormal findings DR PEARL ORTEGA [facility] Start: 04-15-2022 End: 04-16-[address] PEARL ORTEGA Facility:[facility] Start: 04-15-2022 End: 04-16-2022 Encounter for general adult medical examination without abnormal findings DR PEARL ORTEGA Facility:[facility] Start: 04-04-2022 End: 04-04-2022 ambulatory Pearl Ortega Other [employer] Other Start: 04-04-2022 Encounter for genera l adult medical examination without abnormal findings Pearl Ortega [facility] Start: 04-04-2022 Telephone encounter Pearl Shannon [facility] Start: 01-15-2022 Adult health examination Pearl Ortega Other [employer] Other Start: 07-12-2021 End: 07-12-2021 Patient encounter procedure Poli VASQUEZ [facility] Start: 07-11-2021 End: 07-11-2021 Patient encounter procedure Poli VASQUEZ [facility] Start: 05-04-2017 End: 05-04-2017 Ambulatory PEARL ORTEGA [facility] Start: 11-03-2016 End: 11-07-2016 Ambulatory CHANDANA ASGE [facility] Procedures Date Procedure Procedure Detail Performing Clinician Start: 06-06-2016 Total vaginal hysterectomy, bilateral salpingectomy, anterior repair Poli VASQUEZ Start: 2015 General examination of patient Pearlsandrita Ortega Other Colonoscopy Poli VASQUEZ dental implant Poli VASQUEZ sinus surgery and septoplasty Poli VASQUEZ Plan of Treatment Date Care Activity Detail Author Start: 11-14-2024 Influenza vaccination Influenz a Vaccine (#1) [facility] Start: 09-20-2024 Patient referral [facility] Work Phone: Start: 05-31-2024 End: 05-31-2024 Patient encounter procedure [facility] Start: 03-29-2024 End: 03-29-2024 Patient encounter procedure [facility] Comment on above: Arrived Start: 02-24-2024 End: 02-24-2024 Patient encounter procedure 02/24/2024 11:30 AM EST Office Visit [facility] [address] [place] [phone] Mata Ivy, DPM [address] [place] [address] [facility] Start: 01-27-2024 End: 01-27-2024 Patient encounter procedure 01/27/2024 3:15 PM EST Office Visit [facility] [address] [place] [address] Mata Ivy, DPM [address] [place] [address] [facility] Start: 01-06-2024 End: 01-06-2024 Patient encounter procedure 01/06/2024 1:00 PM EDT Office Visit [facility] [address] [place] [address] Mata Ivy, DPM [address] [place] [address] Arrived [facility] Comment on above: Arrived Start: 11-15-2023 Influenza vaccination Influenz a Vaccine (#1) [facility] Start: 2008 Screening for malign ant neoplasm of breast Mammogram [facility] Start: 1998 Screening for malign ant neoplasm of cervix [facility] Start: 1989 Screening for malign ant neoplasm of cervix Pap Smear [facility] Start: 1968 Screening for malign ant neoplasm of colon [facility] CT Cervical spine WO contrast [facility] Electromyography [facility] MR Cervical spine WO contrast [facility] Patient referral [facility] Work Phone: XR Cervical spine 4 Views [facility] Immunizations Immunization Date Immunization Notes Care Provider [facility] 01-23-2024 influenza virus vaccine, unspecified formulation Mata Ivy DPM Work Phone: [facility] 12-27-2022 influenza virus vaccine, unspecified formulation Mata Ivy DPM Work Phone: [facility] 12-14-2021 influenza virus vaccine, unspecified formulation Noam Whitney [facility] 01-31-2021 SARS-CoV-2 (COVID-19 ) Ad26 vaccine, recombinant Poli PEDRO [facility] 12-22-2020 influenza virus vaccine, unspecified formulation Noam Whitney [facility] 06-29-2020 COVID-19, mRNA, LNP- S, PF, 30 mcg/0.3 mL dose; Translations: [[employer]mit[employer]-sickweatherNTech COVID-19 Vaccine] Poli VASQUEZ [facility] Comment on above: Reason for Medicatio n: Prophylaxis 06-01-2020 COVID-19, mRNA, LNP- S, PF, 30 mcg/0.3 mL dose; Translations: [Pfizer-BioNTech COVID-19 Vaccine] Poli VASQUEZ [facility] Comment on above: Reason for Medicatio n: Prophylaxis 12-23-2019 influenza virus vaccine, split virus (incl. purified surface antigen) Pearl Ortega Other [employer] Other 12-23-2019 influenza virus vaccine, unspecified formulation [facility] 03-22-2019 zoster vaccine recombinant Noam Whitney [facility] 01-17-2019 zoster vaccine recombinant Noam Whitney [facility] 01-11-2019 influenza virus vaccine, split virus (incl. purified surface antigen) Pearl Ortega Other [employer] Other 01-11-2019 influenza virus vaccine, unspecified formulation [facility] 03-16-2018 zoster vaccine, live Pearl Ortega Other [facility] 12-29-2017 influenza virus vaccine, split virus (incl. purified surface antigen) Pearl Ortega Other [employer] Other 12-29-2017 influenza virus vaccine, unspecified formulation Noam Whitney [facility] 01-02-2017 influenza virus vaccine, unspecified formulation Noam Whitney [facility] 01-02-2017 tetanus and diphther ia toxoids, adsorbed, preservative free, for adult use (5 Lf of tetanus toxoid and 2 Lf of diphtheria toxoid) Pearl Ortega Other [facility] 2015 influenza virus vaccine, unspecified formulation Noam Whitney [facility] 2015 tetanus and diphther ia toxoids, adsorbed, preservative free, for adult use (5 Lf of tetanus toxoid and 2 Lf of diphtheria toxoid) Pearl Ortega Other [facility] 12-18-2014 tetanus and diphther ia toxoids, adsorbed, preservative free, for adult use (5 Lf of tetanus toxoid and 2 Lf of diphtheria toxoid) eParl Ortega Other [facility] 12-27-2013 tetanus and diphther ia toxoids, adsorbed, preservative free, for adult use (5 Lf of tetanus toxoid and 2 Lf of diphtheria toxoid) Pearl Ortega Other [facility] 01-12-2013 tetanus and diphther ia toxoids, adsorbed, preservative free, for adult use (5 Lf of tetanus toxoid and 2 Lf of diphtheria toxoid) Pearl Ortega Other [facility] Payers Date Payer Category Payer Private Health Insurance [employer] [id number] 1968 Unknown [id number] [id number]. 593 1968 Unknown [id number] 2.16.840.1.505614.3.579.2. 1259 1968 Unknown [id number] 2.16.840.1.150103.3.579.2. 1259 1968 Unknown [id number] 2.16.840.1.762575.3.579.2. 1259 1968 Unknown [id number] 2.16.840.1.957987.3.579.2. 1259 1968 Unknown [id number] 2.16.840.1.486985.3.579.2. 1259 1968 Unknown [id number] 2.16.840.1.777295.3.579.2. 1259 1968 Unknown [id number] 2.16.840.1.793541.3.579.2. 1259 1968 Unknown [id number] 2.16.840.1.204204.3.579.2. 1259 1968 Unknown [id number] 2.16.840.1.741960.3.579.2. 727 1968 Unknown [id number] 2.16.840.1.258908.3.579.2. 727 1959 Unknown [id number] Unknown [facility] [employer] [id number] Social History Date Type Detail Facility Start: 05-21-2020 End: 11-10-2024 Tobacco smoking status Never smoked tobacco (finding) [facility] Start: 10-07-2022 Tobacco smoking status Never [facility] Start: 10-07-2023 End: 09-15-2024 Sex Assigned At Female [facility] Start: 1970 Sex Assigned At Female [facility] Start: 10-14-2022 Tobacco use and exposure Smokeless tobacco non-user [facility] Start: 01-06-2024 End: 09-15-2024 Alcoholic beverage intake Lifetime non-drinker (finding) [facility] Start: 10-07-2023 End: 09-15-2024 History of Social function [facility] Start: 10-07-2022 Gender identity Identifies as female gender (finding) [facility] Start: 05-20-2024 Sex Female (finding) [facility] NEGATED: Highlighted row [facility] Clinical Notes 07-12-2021 to 11-08-2024 Telephone Encounter - Mata Ivy DPM - 11/08/2024 9:03 AM EDTTelephone Encounter - Mata Ivy DPM - 11/08/2024 9:03 AM EDT Note Date & Type Note Facility 11-08-2024 Telephone encount er Note Order was faxed for PT to [place] as requested. [facility] Work Phone: 11-08-2024 Miscellaneous Notes Formattin g of this note might be different from the original. Order was faxed for PT to [place] as requested. Patient called and stated that her right foot is hurting her again. She was wondering if we could order physical therapy for her, and to send the order to the [facility]. documented in this encounter [facility] 11-07-2024 Telephone encount er Note Patient called and stated that her right foot is hurting her again. She was wondering if we could order physical therapy for her, and to send the order to the [facility]. [facility] 09-20-2024 Evaluation note Diagnosis Onset Date Resolution Radiculitis of right cervical region acute September 20, 2024 2 :01pm Spasm of right trapezius muscle acute September 20, 2024 2:01pm Spasm of right trapezius muscle acute November 07 9:10am [facility] Work Phone: [phone] 455-292507-08-2025 Evaluation note* Diagnosis Onset Date Resolution Status Admit Date Radiculitis of right cervica l region acute September 20, 2024 2 :01pm Spasm of right trapezius muscle acute September 20, 2024 2 :01pm Spasm of right trapezius muscle acute November 07 9:10am Myalgia acute November 2:27pm Right shoulder pain acute Septe mber 2024 2:27pm [facility] Work Phone: 1(942) 590-468507-08-2025 Hospital Discharge instructionsAmbulatory Orders* Referral to Neurosurgery Time Frame: 09/20/24, Location: None Selected [facility] Work Phone: 1(451) 867-776407-03-2025 History of Present illness Narrative* Mata Ivy DPM - 09/15/2024 2:45 PM EDT Images from the original note were not included. HPI: Luis Fernando Solo presents today for follow-up of right heel pain. Patient states that she has had [...] Patient has been mostly taping the toe. No other complaints. Exam: General Examination: GENERAL [...] palpation of the medial band of the plantarfascia. No pain noted with compression of the calcaneus or to palpation of the Achilles tendon bilateral. No pain with palpation along the course of the posterior tibial tendon PAIN ELICITED WITH ROM: 2nd MPJ Right MUSCLE STRENGTH: 5/5 for all pedal groups tested Assessments: Plantar Fasciitis bilateral: R>L Capsulitis right Neuroma Right foot pain Plan: Plantar Fasciitis: 1. Discussed with the patient the next options for treatment including night splint, injection and physical therapy. 2. Discussed with the patient a corticosteroid injection in the plantar right heel today. R/B/P/A/Cdiscussed with the patient who consents to proceed. The area was prepped with alcohol. Attention was directed to the plantar medial tubercle where the patient was noted to have pain. Injection was performed with 2cc of 2% Lidocaine plain and 1cc of Kenalog 40. Patient tolerated the injection well. Instructed on home care. 3. Instructed patient to continue with the stretching exercises, supportive shoe gear and other conservative treatment options we have previously discussed. 4. RTC: 4-6 weeks. documented in this encounterParkland Health [id number] History of Present illness Narrative* Mata Ivy DPM - 05/04/2024 8:30 AM EST Images from the original note were not included. HPI: Luis Fernando Solo presents today for evaluation of right foot pain. Patient states that she has hadpain in the foot for 7-8 months. She [...] palpation of the medial band of the plantarfascia. No pain noted with compression of the [...] and tolerance to normal gait forces relative tostanding, walking, and running. Our goal is for [...] FO, therapy if needed. documented in this encounterParkland Health [id number] History of Present illness Narrative* Mata Ivy DPM - 03/29/2024 4:15 PM EST Images from the original note were not included. HPI: Luis Fernando Solo presents today for evaluation of right foot pain. Patient states that she has hadpain in the foot for 7-8 months. She [...] compression to the right second interspace. Evidence ofa palpable click with compression across the right forefoot. Pain with compression to the right 3rdinterspace. PAIN ELICITED WITH ROM: 2nd MPJ Right [...] having pain or symptoms. documented in this [facility]12-11-2024 History of Present illness Narrative* Mata Ivy DPM - 02/24/2024 11:30 AM EST Images from the original note were not included. HPI: Luis Fernando Solo presents today for evaluation of right foot pain. Patient states that she has hadpain in the foot for 7-8 months. She [...] the dorsal and plantar aspect of the secondMPJ right. There is mild tenderness with compression to the right second interspace. No evidence ofa palpable click with compression across the right [...] into the joint, syringe was removed and clearfluid return was noted. Then 0.5cc of Kenalog [...] if still having pain. documented in this encounterParkland Health [id number] History of Present illness Narrative* Mata Ivy, DPM - 01/27/2024 3:15 PM EST Images from the original note were not included. HPI: Luis Fernando Solo presents today for evaluation of right foot pain. Patient states that she has hadpain in the foot for 7-8 months. She [...] the dorsal and plantar aspect of the secondMPJ right. There is mild tenderness with compression to the right second interspace. No evidence ofa palpable click with compression across the right [...] on continued use of the padding and supportiveshoe gear area. Patient will follow-up in 4 weeks if still having pain. documented in this encounterParkland Health [id number] History of Present illness Narrative* Mata Ivy DPM - 01/06/2024 1:00 PM EDT Images from the original note were not included. HPI: Luis Fernando Solo presents today for evaluation of right foot pain. Patient states that she has hadpain in the foot for 7-8 months. She [...] the dorsal and plantar aspect of the secondMPJ right. There is mild tenderness with compression to the right second interspace. No evidence ofa palpable click with compression across the right [...] the possibility of further treatment with steroid injectionsor more aggressive immobilization and definitive treatment with surgery if further deformity in thetoe occurs. She has had prior injection, but not sure of the exact location of the injection. We did also discuss MRI as a further treatment options for diagnostic purposes if she has continued pain. documented in this [facility]01-29-2024 Evaluation note* Encounter Date Diagnosis Assessment Notes Treatment Notes Treatment Clinical Notes Mar, Exposure to influenza (ICD-10 - [...] lymphocytic leukemia (ICD-10 - Z85.6) as above [employer] Other 10-17-2023 Evaluation note* Encounter Date Diagnosis Assessment Notes Treatment Notes Treatment Clinical Notes Dec, Anxiety, generalized (ICD-10 - F41.1) [employer] Other 01-20-2023 Evaluation note* Encounter Date Diagnosis Assessment Notes Treatment Notes Treatment Clinical Notes Mar, Wellness examination (ICD-10 - Z00.00) [employer] Other 04-29-2022 Hospital Discharge instructions Patient Education 07/12/2021 12:26:06 Kidney Stones, Stoq-kl-Wfza Kidney Stones Kidney stones are rock-like masses [...] Follow these instructions at home: Medicines Take muve-fko-bzlaebe and prescription medicines only as told by [...] 08/18/2008 Document Revised: 07/19/2019 Document Reviewed: 07/19/2019 [employer] Patient Education 2019 [employer] Follow Up Care 05/27/2021 09:26:18 With:PEDRO SIDHU, Poli Boucher, URL Address: [address] [place], [place] [id number]- When: Unknown [facility] Evaluation + Plan note Future Appointments Appointment Date:07/12/2021 11:30:00 AM Scheduled Provider:Poli VASQUEZ MD Location:[facility] Appointment [facility]:URO [facility] Future Appointments Appointment Date:07/18/2022 09:15:00 AM Scheduled Provider:Poli VASQUEZ MD Location:[facility] Appointment Type:URO Office Visit [facility] Ha Evaluation noteNo InformationNort Tictail Other Evaludtfnv noteNo assessment information available [facility] Work Phone: Evaluation note* Diagnosis Capsulitis of foot- Primary Right foot pain Pain in soft tissues of limb documented [facility] this encounter [facility]* Diagnosis Capsulitis of foot- Primary Right foot pain Pain in soft tissues of limb Neuroma digital nerve documented in this encounter [facility]* Diagnosis Plantar fasciitis- Primary Plantar fascial fibromatosis Pain of both heels documented in this encounter [facility]* Diagnosis Plantar fasciitis- Primary Plantar fascial fibromatosis Pain of right heel documented in this encounter [facility]* Diagnosis Onset Date Resolution Status Admit Date Radiculitis of right cervica l region acute September 20, 2024 2 :01pm Spasm of right trapezius muscle acut e September 20, 2024 2:01pm [facility] Work Phone: History general Narrative - Reported* Type Description Date [...] teeth Surgical History colonoscopy - normal, at [facility] 2 021 Surgical History hysterectomy Surgical History ETHMOIDECTOMY 2009 Hospitalization History see above [employer] Other Hospital course Narrative No data available for this section [facility] No data available for this section [facility] No data available for this section [facility]Reason for referral (narrative)No reason for referral information availableWilson Health Work Phone: Summary Purpose Family History Relationship Condition Age at Onset Recorded Date/T ovi father High blood cholesterol Unknown grandparent Unknown Not Specified Heart disease Unknown Relationship Condition Age at Onset Recorded Date/T ovi father High blood cholesterol Unknown grandparent Unknown mother Heart disease Unknown Advance Directives Advance Directive Response Recorded Date/ Time Advance Directives No April 24, 2023 3:41pm Advance Directive Response Recorded Date/ Time Advance Directives No November 10, 2024 12:51pm Chief Complaint and Reason for Visit Chief Complaint left index finger in fection Chief Complaint Admit Date Wellness May 20, 2024 8:32 am Chief Complaint Admit Date neck concerns September 20, 2024 2:01p m Reason for Visit Admit Date Radiculitis of right cervical region Sep 2:01pm Spasm of right trapezius muscle September 2:01pm Chief Complaint Admit Date neck concerns September 20, 2024 2:01p m cervical pain November 07, 2024 9: 10am Reason for Visit Admit Date Radiculitis of right cervical region Sep 2:01pm Spasm of right trapezius muscle September 2:01pm Spasm of right trapezius muscle October 152024 9:10am Chief Complaint Admit Date neck concerns September 20, 2024 2:01p m cervical pain November 07, 2024 9: 10am Ref: Dr. Kareem Ortega - SCAPULAR/ CERVICAL P AIN November 29, 2024 2:27pm Reason for Visit Admit Date Radiculitis of right cervical region Sep 2:01pm Spasm of right trapezius muscle September 2:01pm Spasm of right trapezius muscle October 152024 9:10am Myalgia November 29, 2024 2:27pm Right shoulder pain November 29, 2024 2:27pm Additional Source Comments INFORMATION SOURCE (unrecogn ized section and content) DATE CREATED AUTHOR 09/04/2017 [facility] DATE CREATED AUTHOR AUTHOR'S ORGANIZ ATION 04/16/2022 [facility] DATE CREATED AUTHOR AUTHOR'S ORGANIZ ATION 09/18/2024 [facility] EPIC DATE CREATED AUTHOR AUTHOR'S ORGANIZ ATION 11/06/2024 [facility] REASON FOR VISIT (unrecogniz ed section and content) Reason Onset Date Comments Order for PT 11/07/2024 Patient Care team informatio n (unrecognized section and content) Team Status: Active Member Role Status Dates Pearl Ortega MD Primary Care Provider Active Team Status: Inactive Member Role Status Dates Pearl Ortega MD Primary Care Provide r, Attending Provider Active Start: September 04, 2023 End: September 04, 2023 Photoengraving Retoucher Relationship Specialty Start Date End Date Pearl Ortega MD [address] [place] [address] PCP - General Family Medicine 10/14/22 Photoengraving Retoucher Relationship Specialty Start Date End Date Pearl Ortega MD [address] [place] [phone] PCP - General Family Medicine 10/14/22 Photoengraving Retoucher Relationship Specialty Start Date End Date Pearl Ortega MD [address] [place] [address] PCP - General Family Medicine 10/14/22 Photoengraving Retoucher Relationship Specialty Start Date End Date Pearl Ortega MD [address] [facility] [address] PCP - [facility] 10/14/22 Team Status: Inactive Member Role Status Dates Pearl Ortega MD Primary Care Provide r, Attending Provider Active Start: May 20, 2024 End: May 20, 2024 Photoengraving Retoucher Relationship Specialty Start Date End Date Pearl Ortega MD [address] [place] [facility] [address] PCP - [facility] 08/25/24 Photoengraving Retoucher Relationship Specialty Start Date End Date Pearl Ortega MD [address] [facility] [address] PCP - [facility] 08/25/24 Team Status: Inactive Member Role Status Dates Pearl Ortega MD Primary Care Provider Active Start: September 20, 2024 End: September 20, 2024 Pearl Ortega MD Attending Provider Active St art: September 20, 2024 End: September 20, 2024 Team Status: Inactive Member Role Status Dates Pearl Ortega MD Primary Care Provider Active Start: November 07, 2024 End: November 07, 2024 Min Thompson DO Attending Provider Active S tart: November 07, 2024 End: November 07, 2024 Team Status: Inactive Member Role Status Dates Pearl Ortega MD Primary Care Provider Active Start: November 29, 2024 End: November 29, 2024 Pearl Ortega MD Referring Provider Active St art: November 29, 2024 End: November 29, 2024 Fan Sanches MD Attending Provider Active Sta rt: November 29, 2024 End: November 29, 2024 Goals (unrecognized section and content) Goals may [...] BE BASED ON THE PRIMARY CLINICAL RECORDS. [facility]. provides no warranty or guarantee of the accuracy or completeness of information in this document.
== END 2024-11-30 14:09 | disposition home or self-care (01) ==
LOC: RAD 14:13
PROVIDERS: PCP Family Medicine; Visit Provider Neurological Surgery
DX: M54.12 Radiculopathy, cervical region (principal)
CPT/HCPCS: 72050

== ENCOUNTER 2024-12-07 12:46 | Outpatient (OUT) | payer OTHER, SELFPAY ==
--- OUTSIDE RECORDS SUMMARY | 2024-12-07 12:48 | XMS_ITS | Encounter Summary ---
Author Organization [facility] Address [facility] [place] [address] Care Team Providers Care Core Java Software Engineer Name Role Phone Pearl oTro MD Primary Care Provider [phone] Source Comments In the event this information is protected by the Federal Confidentiality of Alcohol and Drug AbusePatient Records regulations: The Federal rules restrict any use of the information to criminally investigate or prosecute any alcohol or drug abuse patient.[facility] Encounter Details Date Type Department Care Team (Late st Contact Info) Description 08/19/2015 Get Medical Advice Neurology [address] [place] [id number] Amisha Freitas MD [address] [place] [phone] RE: Visit Follow Up Question Social [...] on filedocumented in this encounter Care Teams Core Java Software Engineer Relationship Specialty Start Date End Date Pearl Toro MD [address] [place] [phone] PCP - General Family Medicine 07/02/15 documented as of this encounter
--- OUTSIDE RECORDS SUMMARY | 2024-12-07 12:48 | XMS_ITS | Encounter Summary ---
Author Organization [facility] Address [facility] [place] [address] Care Team Providers Care Buffing Wheel Inspector Name Role Phone Pearl Toro MD Primary Care Provider [phone] Source Comments In the event this information is protected by the Federal Confidentiality of Alcohol and Drug AbusePatient Records regulations: The Federal rules restrict any use of the information to criminally investigate or prosecute any alcohol or drug abuse patient.[facility] Encounter Details Date Type Department Care Team (Late st Contact Info) Description 10/01/2015 Get Medical Advice Neurology [address] [place] [id number] Amisha Freitas MD [address] [place] [phone] RE: Visit Follow Up Question Social [...] on filedocumented in this encounter Care Teams Buffing Wheel Inspector Relationship Specialty Start Date End Date Pearl Toro MD [address] [place] [address] PCP - General Family Medicine 07/02/15 documented as of this encounter
--- OUTSIDE RECORDS SUMMARY | 2024-12-07 12:48 | XMS_ITS | Encounter Summary ---
Author Organization [facility] Address [address] [place] [address] Care Team Providers Care Agency Sales Representative Name Role Phone Pearl Toro MD Primary Care Provider [phone] Pearl Toro MD Primary Care Provider [phone] Encounter Details Date Type Department Care Team (Late Contact Info) Description 10/13/2022 Abstract [facility] [address] [place] [phone] [place] DPM [address] [place] [address] Social History Tobacco Use Types Packs/Day Years [...] Upcoming Encounters Date Type Department Care Team ([facility] Contact Info) Description 12/27/2024 4:45 PM EDT Office Visit [facility] [address] [place] [address] Isabella Ivy DPM [address] [facility] [address] [place] [address] documented as of this encounter Visit Diagnoses Not on filedocumented in this encounter Care Teams Agency Sales Representative Relationship Specialty Start Date End Date Pearl Toro MD PCP - General Family Medicine 10/14/22 08/24/24 Pearl Toro MD [address] [place] [address] PCP - General Family Medicine 08/25/24 documented as of this encounter
--- OUTSIDE RECORDS SUMMARY | 2024-12-07 12:48 | XMS_ITS | Encounter Summary ---
Author Organization [facility] Address [facility] [place] [address] Care Team Providers Care Recoating Machine Operator Name Role Phone Pearl Toro MD Primary Care Provider [phone] Source Comments In the event this information is protected by the Federal Confidentiality of Alcohol and Drug AbusePatient Records regulations: The Federal rules restrict any use of the information to criminally investigate or prosecute any alcohol or drug abuse patient.[facility] Encounter Details Date Type Department Care Team (Late st Contact Info) Description 08/22/2015 Get Medical Advice Neurology [address] [place] [id number] Amisha Freitas MD [address] [place] [phone] RE: Visit Follow Up Question Social [...] on filedocumented in this encounter Care Teams Recoating Machine Operator Relationship Specialty Start Date End Date Pearl Toro MD [address] [place] [phone] PCP - General Family Medicine 07/02/15 documented as of this encounter
--- OUTSIDE RECORDS SUMMARY | 2024-12-07 12:48 | XMS_ITS | Encounter Summary ---
Author Organization [facility] Address [address] [place], [place] [id number] Care Team Providers Care Design Architect Name Role Phone Pearl Toro MD Primary Care Provider [phone] Source Comments In the event this information is protected by the Federal Confidentiality of Alcohol and Drug AbusePatient Records regulations: The Federal rules restrict any use of the information to criminally investigate or prosecute any alcohol or drug abuse patient.[facility] Encounter Details Date Type Department Care [...] on filedocumented in this encounter Care Teams Design Architect Relationship Specialty Start Date End Date Pearl Toro MD [address] [facility] [address] PCP - General Family Medicine 07/02/15 documented as of this encounter
--- OUTSIDE RECORDS SUMMARY | 2024-12-07 12:48 | XMS_ITS | Clinical Summary ---
Author Organization [facility] Address [address] [place] [address] Care Team Providers Care Commercial Journeyman Electrician Name Role Phone Pearl Toro MD Primary Care Provider [phone] Allergies Active Allergy Reactions Criticality Noted Date [...] Podiatry [address] [place] [address] Yoselyn Rodriguez MA Order for PT 09/15/2024 2:45 PM EDT Office Visit [facility] [address] [place] [phone] Isabella Ivy DPM Plantar fasciitis (Primary Dx); Pain of right heel 09/15/2024 Bamboo flowsheet [facility] [address] [place] [phone] Isabella Ivy DPM 09/15/2024 Travel from Last [...] PM EDT Office Visit [facility] [address] [place] [phone] Isabella Ivy DPM [address] [place] [address] Health Maintenance Due Date Last Done Comments CT Colonography 1968 Colonoscopy 1968 Colorectal Cancer Screening 1968 FIT-DNA 1968 FIT 1968 FOBT 1968 Sigmoidoscopy 1968 Pap Smear 1989 Cervical Cancer Screening 1998 HPV/Cotest 1998 Mammogram 2008 Influenza Vaccine (#1) 2024 , 12/27/2022, 12/14/2021, Additional history exists Insurance [employer] Care Teams Commercial Journeyman Electrician Relationship Specialty Start Date End Date Pearl Toro MD [address] [place] [phone] PCP - General Family Medicine 08/25/24
--- OUTSIDE RECORDS SUMMARY | 2024-12-07 12:48 | XMS_ITS | Encounter Summary ---
Author Organization [facility] Address [facility] [place] [address] Care Team Providers Care Table Hand Name Role Phone Pearl Toro MD Primary Care Provider Source Comments In the event this information is protected by the Federal Confidentiality of Alcohol and Drug AbusePatient Records regulations: The Federal rules restrict any use of the information to criminally investigate or prosecute any alcohol or drug abuse patient.[facility] Encounter Details Date Type Department Care Team (Late st Contact Info) Description 10/09/2015 Get Medical Advice Neurology [address] [place] [phone] Amisha Freitas MD [address] [place] [phone] RE: Visit Follow Up Question Social [...] on filedocumented in this encounter Care Teams Table Hand Relationship Specialty Start Date End Date Pearl Toro MD [address] [place] [phone] PCP - General Family Medicine 07/02/15 documented as of this encounter
--- OUTSIDE RECORDS SUMMARY | 2024-12-07 12:48 | XMS_ITS | Clinical Summary ---
Author Organization [facility] Address [address] [place], [place] [id number] Care Team Providers Care Chief Engineer Waterworks Name Role Phone Pearl Toro MD Primary Care Provider Allergies Active Allergy Reactions Criticality Noted Date [...] (FLONASE) 50 mcg/actuation nasal spray Use 1 [place] in each nostril as needed for Cold/Allergy [...] N ot on file 02/22/2020 Data from: https://www.neighborhoodatlas.medicine.[facility]/. Last address used for calculation Not on [...] METABOLIC PANEL (05/04/2017 11:18 AM EST) Pathologist [facility] Protein, Total 5.6(L) 6.3 - 8.0 g/dL 05/04/2017 9:50 PM EST [facility] Albumin 4.4 3.9 - 4.9 g/dL 05/04/2017 9:50 PM EST [facility] Calcium 9.1 8.5 - 10.2 mg/dL 05/04/2017 9:50 PM EST [facility] Bilirubin, Total 0.7 0.2 - 1.3 mg/dL 05/04/2017 9:50 PM EST [facility] Alkaline Phosphatase 74 32 - 117 U/L 05/04/2017 9:50 PM EST [facility] AST 29 13 - 35 U/L 05/04/2017 9:50 PM EST [facility] Glucose 110(H) 74 - 99 mg/dL 05/04/2017 9:50 PM EST [facility] Comment: The [place] Diabetes Association (ADA) provides guidance for cutoff [...] Standards of Medical Care in Diabetes 2016, [place] Diabetes Association. Diabetes Care. 2016.39(Suppl 1). BUN 15 7 - 21 mg/dL 05/04/2017 9:50 PM [facility] Creatinine 0.89 0.58 - 0.96 mg/dL 05/04/2017 9:50 PM [facility] Sodium 142 136 - 144 mmol/L 05/04/2017 9:50 PM [facility] Potassium 4.1 3.7 - 5.1 mmol/L 05/04/2017 9:50 PM [facility] Chloride 103 97 - 105 mmol/L 05/04/2017 9:50 PM [facility] CO2 26 22 - 30 mmol/L 05/04/2017 9:50 PM [facility] Anion Gap 13 9 - 18 mmol/L 05/04/2017 9:50 PM [facility] ALT 18 7 - 38 U/L 05/04/2017 9:50 PM [facility] eGFR- >60 05/04/2017 9:50 PM [facility] eGFR-All Other Races >60 . 05/04/2017 9:50 PM [facility] Comment: eGFR (Estimated GFR) [...] 05/04/2017 11:20 AM EST us Cady Joseph MANAGER PRINTING.[facility] Final Re sult [facility] [address] [place] [address] from Last 3 Months or Most Recently Relevant to Health Maintenance Insurance [employer] Care Teams Chief Engineer Waterworks Relationship Specialty Start Date End Date Pearl Toro MD [address] [place] [address] PCP - General Family Medicine 07/02/15
--- OUTSIDE RECORDS SUMMARY | 2024-12-07 12:54 | XMS_ITS | CCD ---
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 Name Role Phone PEARL ORTEGA Unavailable Unavailable CHANDANA SAGE Unavailable Unavailable PEARL ORTEGA Unavailable Unavailable CHANDANA SAGE Unavailable Unavailable YFN AKINS ([facility]) Unavailable UnavailPEARL Guy Unavailable Unavailable PEARL ORTEGA Primary Care Physician DR PEARL ORTEGA Attending Unavailable SHANNON, DR PEARL Arredondo Consulting Unavailable DR PEARL ORTEGA Primary Care Unavailable DR PEARL ORTEGA Admitting Unavailable Pearl Ortega Unavailable Pearl Ortega MD Primary Care Provider Pearl Ortega MD Primary Care Provider [phone] MATA IVY Attending Unavailable MATA IVY Attending Unavailable AUGUSTIN IBANEZ Attending Unavailable AUGUSTIN IBANEZ Attending Unavailable MATA IVY Attending Unavailable MATA IVY Attending Unavailable MATA IVY Attending Unavailable MATA IVY Attending Unavailable Pearl Ortega MD Primary Care Provider Pearl Ortega MD Attending Provider [phone] Noam Whitney Attending Unavailable Noam Whitney Referring Unavailable Noam Whitney Admitting Unavailable Noam Whitney Attending Unavailable Noam Whitney Referring Unavailable Noam Whitney Admitting Unavailable Min Thompson DO Attending Provider Pearl Ortega MD Referring Provider [phone] Fan Sanches MD Attending Provider Allergies Allergy Classification Reported Allergen(s) Allergy Type Date of Onset Reaction(s) Facility (20 sources) azithromycin; Translations: [AZITHROMYCIN] Drug Allergy 08-02-19 16 AOF [facility] Repository (20 sources) Penicillins; Translations: [PENICILLINS] Propensity to adverse reactions to drug (disorder) 08-02-19 16 Rash [facility] Repository (20 sources) Erythromycin; Translations: [erythromycin] Drug Allergy 10-15-19 Antimicrobial susceptibility test (procedure) [facility] (20 sources) Tetracycline; Translations: [tetracycline] Drug Allergy 10-15-[address] [facility] (7 sources) Clindamycin Drug Allergy 09-04-19 24 Unknown, Unknown Reaction [facility] (20 sources) Doxycycline Drug Allergy 10-15-19 23 Unknown, Unknown Reaction [facility] (4 sources) Penicillin G Drug Allergy Unknown [facility] Other (3 sources) Substance with penicillin structure and antibacterial mechanism of action (substance) Drug allergy 11-27-19 13 Unknown [facility] Other (3 sources) patient allergy list reviewed by nurse or physicia Propensity to adverse reactions 11-27-19 Comment:Done [facility] Other (3 sources) Allergies Reconciled Propensity to adverse reactions Unknown [facility] Other (5 sources) erythromycin base Allergy to substance 09-04-19 Unknown Reaction [facility] Medications Current Medications Medication Drug Class(es) Dates [...] therapy Dextromethorphan / guaiFENesin (6 sources) Uncompetitive D-nvtkfy-U-aspartat e Receptor Antagonist, Sigma-1 Agonist Start: 04-18-2020 take 5 mL by mouth every four hours for cough dextromethorphan-gu aifenesin 10 mg-100 mg/5 mL Oral Liq 480 mL 5 mL, Oral, q4hr for cough, 300 mL, Refill(s) 0, [facility], 173, cm, 04/15/20 [...] Pain/Fever, # 10 tab(s), Refills(s) 0, Pharmacy: [facility] 1986, 173, cm, 04/15/20 [...] Nausea/Vomiting, # 10 tab(s), Refills(s) 0, Pharmacy: [facility] 1986, 173, cm, 04/15/20 17:15:00 EST, Height/Length [...] 2024 9:41am take 1 capsule by mo [facility] every twelve hours Indomethacin 25 MG [...] IS VERY IMPORTANT TO YOUR HEALTH. THE [place] [employer] GUIDELINES RECOMMEND THAT WOMEN 40 [...] 2-Benign finding Recommendation: Normal interval follow-up Normal [facility] Basophils/100 WBC Manual cnt (Bld)on 05-20-2024 Basophils/100 WBC (Bld) Basophils/100 leukocytes in Blood by Manual count 0.2-2.0 [facility] Eosinophils/100 WBC Manual c nt (Bld)on 05-20-2024 Eosinophils/100 WBC (Bld) Eosinophils/100 leukocytes in Blood by Manual count 0.9-7.0 [facility] Erythrocyte distribution wid th Auto (RBC) [Ratio]on 05-20-2024 Erythrocyte distribution width (RBC) [Ratio] Erythrocyte distribution width [Ratio] by Automated count 11.0-15.0 [facility] Hematocrit Auto (Bld) [Volum e fraction]on 05-20-2024 Hematocrit (Bld) [Volume fraction] Hematocrit [Volume Fraction] of Blood by Automated count 36.0-48.0 [facility] Hemoglobin [Mass/volume] in Bloodon 05-20-2024 Hemoglobin (Bld) [Mass/Vol] Hemoglobin [Mass/volume] in Blood 12.0-16.0 [facility] Laboratory - Hematology and Cell countson 05-20-2024 Lymphocytes/100 WBC (Bld) 61.0 % High 20.5-60.0 [facility] Monocytes/100 WBC (Bld) 2.0 % 1.7-12.0 [facility] Leukocytes [#/volume] correc ruben for nucleated erythrocytes in Blood by Automated counon 05-20-2024 WBC corrected for nucl RBC Auto (Bld) [#/Vol] Leukocytes [#/volume] corrected for nucleated erythrocytes in Blood by Automated coun High 4.0-11.0 [facility] MCH Auto (RBC) [Entitic mass ]on 05-20-2024 MCH (RBC) [Entitic mass] MCH [Entitic mass] by Automated count 26.7-34.0 [facility] MCHC Auto (RBC) [Mass/Vol]on 05-20-2024 MCHC (RBC) [Mass/Vol] MCHC [Mass/volume] by Automated count 29.9-35.2 [facility] MCV Auto (RBC) [Entitic vol] on 05-20-2024 MCV (RBC) [Entitic vol] MCV [Entitic volume] by Automated count 81.0-99.0 [facility] No Panel Informationon 05-20 Absolute Basophils (Manual) 0.17 10 3/uL High 0.00-0.10 [facility] Eosinophils # (Manual) 0.17 10 3/uL 0.00-0.70 [facility] Lymphocytes # (Manual) 10.49 10 3/uL High 1.20-3.80 [facility] Monocytes # (Manual) 0.34 10 3/uL 0.30-0.80 [facility] Reactive Lymphocytes 0.51 [facility] Reactive Lymphocytes 3.0 % [facility] Segmented Neutrophils # (Manual) 5.50 10 3/uL 1.4-6.5 [facility] Platelet mean volume Auto (B ld) [Entitic vol]on 05-20-2024 Platelet mean volume (Bld) [Entitic vol] Platelet mean volume [Entitic volume] in Blood by Automated count Low 9.5-13.5 [facility] Platelets Auto (Bld) [#/Vol] on 05-20-2024 Platelets (Bld) [#/Vol] Platelets [#/volume] in Blood by Automated count 150-450 [facility] RBC Auto (Bld) [#/Vol]on RBC (Bld) [#/Vol] Erythrocytes [#/volu me] in Blood by Automated count 4.20-5.40 [facility] Segmented neutrophils/100 WB C Manual cnt (Bld)on 05-20-2024 Segmented neutrophils/100 WBC (Bld) Manual blood segmented neutrophils/100 leukocytes Low 43.0-75.0 [facility] MA Mamm Diag w/CAD if perf a [...] VERY IMPORTANT TO YOUR HEALTH. THE CURRENT [place] [employer] AND N[employer]HENSIVE CANCER [...] 2-Benign finding Recommendation: Normal interval follow-up Normal [facility] CBC AUTO DIFFon 04-15-2022 BASO # 0.1 103/ul Normal 0.0-0.1 [facility] Comment on above: Performed By: #### C BC #### [facility] [address] [place] [address] Dr. Lauri Acosta Basophils/100 WBC (Bld) 0.5 % Normal 0.2-2.0 [facility] Comment on above: Performed By: #### C BC #### [facility] [address] [place] [address] Dr. Lauri Acosta EO # 0.2 103/ul Normal 0.0-0.7 [facility] Comment on above: Performed By: #### C BC #### [facility] [address] [place] [address] Dr. Lauri Acosta Eosinophils/100 WBC (Bld) 1.2 % Normal 0.9-7.0 [facility] Comment on above: Performed By: #### C BC #### [facility] [address] [place] [address] Dr. Lauri Acosta Erythrocyte distribution width (RBC) [Ratio] 12.5 % Normal 11.0-15.0 [facility] Comment on above: Performed By: #### C BC #### [facility] [address] [place] [address] Dr. Lauri Acosta Hematocrit (Bld) [Volume fraction] 41.6 % Normal 36.0-48.0 [facility] Comment on above: Performed By: #### C BC #### [facility] [address] [place] [address] Dr. Lauri Acosta Hemoglobin (Bld) [Mass/Vol] 14.0 g/dL Normal 12.0-16.0 [facility] Comment on above: Performed By: #### C BC #### [facility] [address] [address] [address] Lauri Acosta IG # 0.03 10e3/ul Normal 0.00-0.03 [facility] Comment on above: Performed By: #### C BC #### [facility] [address] [place] [address] Dr. Lauri Acosta IG % 0.2 % Normal 0.0-0.5 [facility] Comment on above: Performed By: #### C BC #### [facility] [address] [place] [address] Dr. Lauri Acosta LYMPH # 9.9 103/ul Critically high 1.2-3.8 [facility] Comment on above: Performed By: #### C BC #### [facility] [address] [place] [address] Dr. Lauri Acosta Lymphocytes/100 WBC (Bld) 68.4 % Critically high 20.5-60.0 [facility] Comment on above: Performed By: #### C BC #### [facility] [address] [place] [address] Dr. Lauri Acosta MANUAL DIFF REQ NO Normal [facility] Comment on above: Performed By: #### C BC #### [facility] [address] [place] [address] Dr. Lauri Acosta MCH (RBC) [Entitic mass] 31.3 pg Normal 26.7-34.0 [facility] Comment on above: Performed By: #### C BC #### [facility] [address] [place] [address] Dr. Lauri Acosta MCHC (RBC) [Mass/Vol] 33.7 g/dL Normal 29.9-35.2 [facility] Comment on above: Performed By: #### C BC #### [facility] [address] [place] [address] Dr. Lauri Acosta MCV (RBC) [Entitic vol] 92.9 fL Normal 81.0-99.0 [facility] Comment on above: Performed By: #### C BC #### [facility] [address] [place] [address] Dr. Lauri Acosta MONO # 0.6 103/ul Normal 0.3-0.8 [facility] Comment on above: Performed By: #### C BC #### [facility] [address] [place] [address] Dr. Lauri Acosta Monocytes/100 WBC (Bld) 3.9 % Normal 1.7-12.0 [facility] Comment on above: Performed By: #### C BC #### [facility] [address] [place] [address] Dr. Lauri Acosta NEUT # 3.7 103/ul Normal 1.4-6.5 [facility] Comment on above: Performed By: #### C BC #### [facility] [address] [place] [address] Dr. Lauri Acosta Neutrophils/100 WBC (Bld) 25.8 % Critically low 43.0-75.0 [facility] Comment on above: Performed By: #### C BC #### [facility] [address] [place] [address] Dr. Lauri Acosta Platelet mean volume (Bld) [Entitic vol] 9.2 fL Critically low 9.5-13.5 [facility] Comment on above: Performed By: #### C BC #### [facility] [address] [place] [address] Dr. Lauri Acosta PLT 286 103/ul Normal 150-450 [facility] Comment on above: Performed By: #### C BC #### [facility] [address] [place] [address] Dr. Lauri Acosta RBC 4.48 106/ul Normal 4.20-5.40 [facility] Comment on above: Performed By: #### C BC #### [facility] [address] [place] [address] Dr. Lauri Acosta WBC 14.5 103/ul Critically high 4.0-11.0 [facility] Comment on above: Performed By: #### C BC #### [facility] [address] [place] [address] Dr. Lauri Acosta LIPID PROFILEon 04-15-2022 CHOL-HDL RATIO NORM SEE BELOW Normal [facility] Comment on above: Result Comment: 3.3 - 4.4 LOW RISK 4.4 - 7.1 AVERAGE RISK 7.1 - 11.0 MODERATE RISK >11.0 HIGH RISK Performed By: #### C MP, LIPID #### [facility] [address] [place], [place] [address] Dr. Lauri Acosta Cholesterol [Mass/Vol] 168 mg/dL Normal <=200 [facility] Comment on above: Performed By: #### C MP, LIPID #### [facility] [address] [address] [address] Lauri Acosta Cholesterol in HDL [Mass/Vol] 47 mg/dL Normal 40-60 [facility] Comment on above: Performed By: #### C MP, LIPID #### [facility] [address] [address] [address] Lauri Acosta Cholesterol in LDL [Mass/Vol] 99.6 mg/dL Normal [facility] Comment on above: Performed By: #### C MP, LIPID #### [facility] [address] [address] [address] Lauri Acosta Cholesterol.total/C holesterol in HDL [Mass ratio] 3.6 {ratio} Normal [facility] Comment on above: Performed By: #### C MP, LIPID #### [facility] [address] [address] [address] Lauri Acosta HDL NORMAL > or = 60 mg/dl - LO W CARDIOVASCULAR RISK <40 mg/dl - HIGH CARDIOVASCULAR RISK Normal [facility] Comment on above: Performed By: #### C MP, LIPID #### [facility] [address] [address] [address] Lauri Acosta LDL CALC NORMAL SEE BELOW Normal [facility] Comment on above: Result Comment: <100 mg/dl OPTIMAL 100 - 129 mg/dl NEAR OR ABOVE OPTIMAL 130 - 159 mg/dl BORDERLINE HIGH 160 - 189 mg/dl HIGH >190 mg/dl VERY HIGH Performed By: #### C MP, LIPID #### [facility] [address] [address] [address] Lauri Acosta Triglyceride [Mass/Vol] 107 mg/dL Normal <=150 [facility] Comment on above: Performed By: #### C MP, LIPID #### [facility] [address] [place] [address] Dr. Lauri Acosta VLDL CALC 21.4 mg/dL Normal [facility] Comment on above: Performed By: #### C MP, LIPID #### [facility] [address] [place] [address] Dr. Lauri Acosta PROF 14(COMP METB)on 023 Albumin [Mass/Vol] 3.8 g/dL Normal 3.4-5.0 [facility] Comment on above: Performed By: #### C MP, LIPID #### [facility] [address] [place] [address] Dr. Lauri Acosta Albumin/Globulin [Mass ratio] 1.2 {ratio} Normal [facility] Comment on above: Performed By: #### C MP, LIPID #### [facility] [address] [place] [address] Dr. Lauri Acosta ALP [Catalytic activity/Vol] 88 U/L Normal 46-116 [facility] Comment on above: Performed By: #### C MP, LIPID #### [facility] [address] [place] [address] Dr. Lauri Acosta ALT [Catalytic activity/Vol] 23 U/L Normal 14-59 [facility] Comment on above: Performed By: #### C MP, LIPID #### [facility] [address] [place] [address] Dr. Lauri Acosta Anion gap [Moles/Vol] 14.7 mmol/L Normal [facility] Comment on above: Performed By: #### C MP, LIPID #### [facility] [address] [place] [address] Dr. Lauri Acosta AST [Catalytic activity/Vol] 21 U/L Normal 15-37 [facility] Comment on above: Performed By: #### C MP, LIPID #### [facility] [address] [place] [address] Dr. Lauri Acosta Bilirubin [Mass/Vol] 1.2 mg/dL Critically high 0.2-1.0 [facility] Comment on above: Performed By: #### C MP, LIPID #### [facility] [address] [place] [address] Dr. Lauri Acosta Calcium [Mass/Vol] 9.2 mg/dL Normal 8.5-10.1 [facility] Comment on above: Performed By: #### C MP, LIPID #### [facility] [address] [place] [address] Dr. Lauri Acosta Chloride [Moles/Vol] 104 mmol/L Normal 98-107 [facility] Comment on above: Performed By: #### C MP, LIPID #### [facility] [address] [place] [address] Dr. Lauri Acosta CO2 [Moles/Vol] 28.8 mmol/L Normal 21.0-32.0 [facility] Comment on above: Performed By: #### C MP, LIPID #### [facility] [address] [place] [address] Dr. Lauri Acosta Creatinine [Mass/Vol] 0.82 mg/dL Normal 0.55-1.02 [facility] Comment on above: Performed By: #### C MP, LIPID #### [facility] [address] [place] [address] Dr. Lauri Acosta EGFR-AF GRE[place]DIAN >60 Normal >=60 [facility] Comment on above: Performed By: #### C MP, LIPID #### [facility] [address] [place] [address] Dr. Lauri Acosta EGFR-NON AF GRENADIAN >60 Normal >=60 [facility] Comment on above: Performed By: #### C MP, LIPID #### [facility] [address] [place] [address] Dr. Lauri Acosta Globulin (S) [Mass/Vol] 3.1 g/dL Normal [facility] Comment on above: Performed By: #### C MP, LIPID #### [facility] [address] [place] [address] Dr. Lauri Acosta Glucose [Mass/Vol] 96 mg/dL Normal 74-106 [facility] Comment on above: Performed By: #### C MP, LIPID #### [facility] [address] [place] [address] Dr. Lauri Acosta Potassium [Moles/Vol] 4.5 mmol/L Normal 3.5-5.1 [facility] Comment on above: Performed By: #### C MP, LIPID #### [facility] [address] [place] [address] Dr. Lauri Aocsta Protein [Mass/Vol] 6.9 g/dL Normal 6.4-8.2 [facility] Comment on above: Performed By: #### C MP, LIPID #### [facility] [address] [place] [address] Dr. Lauri Acosta Sodium [Moles/Vol] 143 mmol/L Normal 136-145 [facility] Comment on above: Performed By: #### C MP, LIPID #### [facility] [address] [place] [address] Dr. Lauri Acosta Urea nitrogen [Mass/Vol] 15.0 mg/dL Normal 7.0-18.0 [facility] Comment on above: Performed By: #### C MP, LIPID #### [facility] [address] [place] [address] Dr. Lauri Acosta Urea nitrogen/Creatinine [Mass ratio] 18.3 mg/mg Normal [facility] Comment on above: Performed By: #### C MP, LIPID #### [facility] [address] [place] [address] Dr. Lauri Acosta Comp Metabolic Panelon 05-04 Alanine aminotransferase (ALT) 18 U/L Normal 7-38 [facility] Comment on above: Performed By: #### C MP ####[facility] [address] [place], [place] [phone] Albumin 4.4 g/dL Normal 3.9-4.9 [facility] Comment on above: Performed By: #### C MP ####[facility] [address], [place] [phone] Alkaline phosphatase (ALP) 74 U/L Normal 32-117 [facility] Comment on above: Performed By: #### C MP ####[place] [address] [address] [phone] Anion gap 13 mmol/L Normal 9-18 [facility] Comment on above: Performed By: #### C MP ####[place] [address] [address] [phone] Aspartate aminotransferase (AST) 29 U/L Normal 13-35 [facility] Comment on above: Performed By: #### C MP ####[place] [address] [address] [phone] Bilirubin (total) 0.7 mg/dL Normal 0.2-1.3 [facility] Comment on above: Performed By: #### C MP ####[place] [address] [address] [phone] Calcium 9.1 mg/dL Normal 8.5-10.2 [facility] Comment on above: Performed By: #### C MP ####[place] [address] [address] [phone] Chloride 103 mmol/L Normal 97-105 [facility] Comment on above: Performed By: #### C MP ####[place] [address] [address] [phone] CO2 26 mmol/L Normal 22-30 [facility] Comment on above: Performed By: #### C MP ####[place] [address] [address] [phone] Creatinine 0.89 mg/dL Normal 0.58-0.96 [facility] Comment on above: Performed By: #### C MP ####[place] [address] [address] [place] [phone] eGFR (non-black) mL/min/{1.73_m2} Normal [facility] [...] actual GFR. Performed By: #### C MP ####[address] [phone] Glucose mass conc 110 mg/dL High 74-99 [facility] Comment on above: Result Comment: The [place] Diabetes Association (ADA) provides guidance for cutoff [...] Standards of Medical Care in Diabetes 2016, [place] Diabetes Association. Diabetes Care. 2016.39(Suppl 1). Performed By: #### C MP ####[facility] [place], [place] [phone] Potassium molar conc 4.1 mmol/L Normal 3.7-5.1 [facility] Comment on above: Performed By: #### C MP ####[facility] [place], [place] [phone] Protein 5.6 g/dL Low 6.3-8.0 [facility] Comment on above: Performed By: #### C MP ####[place] [address] [address], [place] [phone] Sodium 142 mmol/L Normal 136-144 [facility] Comment on above: Performed By: #### C MP ####[facility] [place], [place] [phone] Urea nitrogen 15 mg/dL Normal 7-21 [facility] Comment on above: Performed By: #### C MP ####[facility] [place], [place] [phone] Remote Abs Gran + CBC (for F HC use only)on 05-04-2017 Absol Gran Count 4.78 k/uL Normal 1.45-7.50 [facility] Erythrocyte distribution width Auto Ratio (RBC) 12.9 % Normal 11.5-15.0 [facility] Erythrocytes (RBC) 4.49 10*6/uL Normal 3.90-5.20 [facility] Hematocrit (HCT) 41.1 % Normal 36.0-46.0 [facility] Hemoglobin mass conc (Bld) 13.5 g/dL Normal 11.5-15.5 [facility] MCH 30.1 pG Normal 26.0-34.0 [facility] MCHC mass conc (RBC) 32.8 g/dL Normal 30.5-36.0 [facility] MCV 91.5 fL Normal 80.0-100.0 [facility] Platelet mean volume (PMV) 10.0 fL Normal 9.0-12.7 [facility] Platelets 283 10*3/uL Normal 150-400 [facility] WBC (Leukocytes) 19.86 10*3/uL High 3.70-11.00 [facility] CNOVSPon 11-03-2016 CNOVSP Visit (SP) Office ([place]) LUIS FERNANDO SOLO ([id number]) 1970 FDate Time Provider Department11/03/16 11:15 AM CHANDANA SAGE During your visit today, we recorded the following information about you: Temperature Pulse Respiration Blood pressure 98.9 degrees 85/minute 16/minute 138/91 Weight Height 68.2 kg 1.689 Yanelijalil Frank Alona, DO 11/07/2016 10:20 AM SignedPATIENT NAME: Luis Fernando SoloMRN: [id number] PHYSICIAN: Pearl Ortega MD ([facility])[address] [facility] [id number] CARE PHYSICIAN: Pearl Ortega MDOTHER PHYSICIANS:CHIEF COMPLAINT: [...] (FLONASE) 50 mcg/actuation nasal spray Use 1 [place] in each nostrilas needed for Cold/Allergy Symptoms.loratadine [...] I answered all questions satisfactorily..Antony Sage D.O.Medical OncologistCibecue, [place]Referring Provider: PEARL ORTEGA [[id number]]Allergies As of Date: 11/03/2016 Noted Allergy ReactionARITHROMYCIN [...] dur* FLUTICASONE 50 MCG/ACTUATION * Use 1 [place] in each nostril a* LORATADINE 10 MG [...] by CHANDANA SAGE DO on 11/07/16 Normal [facility] LDon 11-03-2016 LD 156 U/L Normal 135-214 [facility] Comment on above: Performed By: #### L D6 ####[facility] [address] [place], [place] [phone] PROGRESSon 11-03-2016 PROGRESS HNO ID: [id number] thor: Chandana Monika Kendall: (none)Author Type: PhysicianType: Progress NotesFiled: 11/07/2016 10:20 AMNote Text:PATIENT NAME: Luis Fernando SoloMRN: [id number] PHYSICIAN: Pearl Ortega MD ([facility])[address] [facility] [id number] CARE PHYSICIAN: Pearl Ortega MDOTHER PHYSICIANS:CHIEF COMPLAINT: [...] (FLONASE) 50 mcg/actuation nasal spray Use 1 [place] in eachnostril as needed for Cold/Allergy Symptoms.loratadine [...] I answered all questions satisfactorily..Antony Sage D.O.Medical OncologistBaptist Health Medical Center Abs Gran + CBC (for F HC use only)on 11-03-2016 Absol Gran Count 4.84 k/uL Normal 1.45-7.50 [facility] Erythrocyte distribution width Auto Ratio (RBC) 13.5 % Normal 11.5-15.0 [facility] Erythrocytes (RBC) 4.49 10*6/uL Normal 3.90-5.20 [facility] Hematocrit (HCT) 42.1 % Normal 36.0-46.0 [facility] Hemoglobin mass conc (Bld) 13.7 g/dL Normal 11.5-15.5 [facility] MCH 30.5 pG Normal 26.0-34.0 [facility] MCHC mass conc (RBC) 32.5 g/dL Normal 30.5-36.0 [facility] MCV 93.8 fL Normal 80.0-100.0 [facility] Platelet mean volume (PMV) 9.9 fL Normal 9.0-12.7 [facility] Platelets 305 10*3/uL Normal 150-400 [facility] WBC (Leukocytes) 19.84 10*3/uL High 3.70-11.00 [facility] Remote iSTAT BMP (for [facility] us e only)on 11-03-2016 Anion gap 11 mmol/L Normal 0-15 [facility] BUN (urea nitrogen) 16 mg/dL Normal 8-25 [facility] Chloride 105 mmol/L Normal 98-110 [facility] CO2 24 mmol/L Normal 23-32 [facility] Creatinine 0.90 mg/dL Normal 0.70-1.40 [facility] eGFR (non-black) mL/min/{1.73_m2} Normal Cl [facility] Comment on above: Result Comment: eGFR (Estimated [...] Glucose mass conc 76 mg/dL Normal 65-100 [facility] Ionized Calcium, WB 1.19 mmol/L Normal 1.08-1.30 [facility] Comment on above: Result Comment: Gallo smyth note: This value represents ionized calcium not total calcium. Potassium molar conc 3.7 mmol/L Normal 3.5-5.0 [facility] Sodium 140 mmol/L Normal 132-148 [facility] Vital Signs Date Time Vital Sign Value Performing Clinician Faci lity 11-07-2024 09:21-0400 Body height 172.72 cm Pearl Ortega MD Work Phone: [facility] 11-07-2024 09:21-0400 Body mass index (BMI) [Ratio] 21.7 kg/m2 Pearl Ortega MD Work Phone: [facility] 11-07-2024 09:21-0400 Body weight 65 kg Pearl Ortega MD Work Phone: [facility] 09-20-2024 14:05-0400 Body height 170.18 cm Pearl Ortega MD Work Phone: [facility] 09-20-2024 14:05-0400 Body mass index (BMI) [Ratio] 22.4 kg/m2 Pearl Ortega MD Work Phone: [facility] 09-20-2024 14:05-0400 Body weight 65.09 kg Pearl Ortega MD Work Phone: [facility] 09-20-2024 14:05-0400 Diastolic blood pressure 80 mm[Hg] Pearl Ortega MD Work Phone: [facility] 09-20-2024 14:05-0400 Heart rate 70 /min Pearl Ortega MD Work Phone: [facility] 09-20-2024 14:05-0400 Systolic blood pressure 113 mm[Hg] Pearl Ortega MD Work Phone: [facility] 05-20-2024 08:37-0500 Body height 170.18 cm [facility] 05-20-2024 08:37-0500 Body mass index (BMI) [Ratio] 22.2 kg/m2 [facility] 05-20-2024 08:37-0500 Body weight 64.41 kg [facility] 05-20-2024 08:37-0500 Diastolic blood pressure 77 mm[Hg] [facility] 05-20-2024 08:37-0500 Heart rate 65 /min [facility] 05-20-2024 08:37-0500 Systolic blood pressure 113 mm[Hg] [facility] 09-04-2023 13:11-0400 Body height 170.18 cm [facility] 09-04-2023 13:11-0400 Body mass index (BMI) [Ratio] 21.9 kg/m2 [facility] 09-04-2023 13:11-0400 Body weight 63.5 kg [facility] 09-04-2023 13:11-0400 Diastolic blood pressure 73 mm[Hg] [facility] 09-04-2023 13:11-0400 Heart rate 80 /min [facility] 09-04-2023 13:11-0400 Systolic blood pressure 105 mm[Hg] [facility] 07-12-2021 11:59-0400 Blood Pressure Location Poli PEDRO [facility] 07-12-2021 11:59-0400 Diastolic blood pressure 72 mm[Hg] Poli VASQUEZ [facility] 07-12-2021 11:59-0400 Heart rate 68 /min Poli VASQUEZ [facility] 07-12-2021 11:59-0400 Systolic blood pressure 110 mm[Hg] Poli VASQUEZ [facility] Encounters Encounter Date Encounter Type Care Provider Facility Start: 11-29-2024 End: 11-29-2024 ambulatory Pearl Ortega MD Work Phone: [facility] Work Phone: Start: 11-29-2024 End: 11-29-2024 Patient encounter procedure [facility] Work Phone: Start: 11-07-2024 End: 11-08-2024 Telephone encounter Yoselyn Rodriguez MA [facility] Comment on above: Order for PT Start: 11-07-2024 End: 11-07-2024 ambulatory Pearl Ortega MD Work Phone: [facility] Work Phone: Start: 11-07-2024 End: 11-07-2024 Patient encounter procedure Min Thompson DO [facility] Work Phone: Start: 10-28-2024 End: 10-28-2024 ambulatory Noam Mercado [facility] Facility:[facility] Start: 09-20-2024 End: 09-20-2024 ambulatory Pearl Ortega MD Work Phone: [facility] Work Phone: Start: 09-20-2024 End: 09-20-2024 Patient encounter procedure Pearl Ortega MD -[facility] Work Phone: Start: 09-15-2024 End: 09-15-2024 Office [...] Bamboo flowsheet Mata Ivy DPM Work Phone: [facility] Start: 05-20-2024 End: 05-20-2024 ambulatory [facility] Work Phone: Start: 05-20-2024 End: 05-20-2024 Patient encounter procedure [facility] Physician [facility] Work Phone: Start: 05-04-2024 End: 05-04-2024 Bamboo flowsheet Mata Ivy DPM Work Phone: [facility] Start: 05-04-2024 End: 05-04-2024 Bamboo flowsheet Mata Ivy DPM Work Phone: [facility] Start: 05-04-2024 End: 05-04-2024 ambulatory MATA IVY Not Available Start: 05-04-2024 End: 05-04-2024 Office outpatient visit 25 minutes Mata Ivy DPM Work Phone: [facility] Comment on above: Plantar fasciitis (P rimary Dx); Pain of both heels Start: 04-22-2024 End: 04-22-2024 ambulatory Noam Whitney Facility:[facility] Start: 04-22-2024 End: 04-22-2024 Patient encounter procedure Noam Whitney [facility] Start: 03-29-2024 End: 03-29-2024 Office outpatient visit 15 minutes Mata Ivy DPM Work Phone: [facility] Comment on above: Capsulitis of foot ( Primary Dx); Right foot pain; Neuroma digital nerve Start: 03-29-2024 End: 03-29-2024 ambulatory MATA IVY Not Available Start: 03-29-2024 End: 03-29-2024 Bamboo flowsheet Mata Ivy DPM Work Phone: [facility] Start: 03-29-2024 End: 03-29-2024 Bamboo flowsheet Mata Ivy DPM Work Phone: [facility] Start: 02-24-2024 End: 02-24-2024 Bamboo flowsheet Mata Ivy DPM Work Phone: [facility] Start: 02-24-2024 End: 02-24-2024 Bamboo flowsheet Mata Ivy DPM Work Phone: [facility] Start: 02-24-2024 End: 02-24-2024 ambulatory MATA IVY Not Available Start: 02-24-2024 End: 02-24-2024 Office outpatient visit 15 minutes Mata Ivy DPM Work Phone: [facility] Comment on above: Capsulitis of foot ( Primary Dx); Right foot pain; Neuroma digital nerve Start: 01-27-2024 End: 01-27-2024 Office outpatient visit 15 minutes Mata Ivy DPM Work Phone: [facility] Comment on above: Capsulitis of foot ( Primary Dx); Right foot pain Start: 01-27-2024 End: 01-27-2024 ambulatory MATA IVY Not Available Start: 01-27-2024 End: 01-27-2024 Bamboo flowsheet Mata Ivy DPM Work Phone: [facility] Start: 01-27-2024 End: 01-27-2024 Bamboo flowsheet Mata Ivy DPM Work Phone: [facility] Start: 01-06-2024 End: 01-06-2024 Bamboo flowsheet Maat Ivy DPM Work Phone: [facility] Start: 01-06-2024 End: 01-06-2024 Bamboo flowsheet Mata Ivy DPM Work Phone: [facility] Start: 01-06-2024 End: 01-06-2024 Office outpatient visit 25 minutes Mata Ivy DPM Work Phone: [facility] Comment on above: Capsulitis of foot ( Primary Dx); Right foot pain Start: 01-06-2024 End: 01-06-2024 ambulatory MATA IVY Not Available Start: 10-30-2023 End: 10-30-2023 Patient encounter procedure Noam Whitney [facility] Start: 10-07-2023 End: 10-07-2023 ambulatory AUGUSTIN Agustin MARCELLE Not Available Start: 09-22-2023 End: 09-22-2023 ambulatory AUGUSTIN S LIEBENTCHRISTIANO Not Available Start: 09-04-2023 End: 09-04-2023 ambulatory [facility] Work Phone: Start: 09-04-2023 End: 09-04-2023 Patient encounter procedure [facility] Work Phone: Start: 05-15-2023 Patient encounter status [facility] Start: 04-24-2023 End: 04-24-2023 Patient encounter procedure Noam Whitney [facility] Start: 04-13-2023 End: 04-13-2023 ambulatory Pearl Ortega Other [employer] Other Start: 04-13-2023 Office outpatient vi sit [address] [facility] Start: 12-30-2022 End: 12-30-2022 ambulatory Pearl Ortega Other [employer] Other Start: 12-30-2022 Telephone encounter Pearl Ortega [facility] Start: 10-21-2022 End: 10-21-2022 ambulatory Pearl Ortega Other [employer] Other Start: 10-21-2022 Telephone encounter Pearl Ortega [facility] Start: 10-10-2022 End: 10-10-2022 Patient encounter procedure Noam Coleten [facility] Start: 04-16-2022 Encounter for genera l adult medical examination without abnormal findings DR PEARL ORTEGA [facility] Start: 04-15-2022 End: 04-16-[address] PEARL ORTEGA Facility:[facility] Start: 04-15-2022 End: 04-16-2022 Encounter for general adult medical examination without abnormal findings DR PEARL ORTEGA Facility:[facility] Start: 04-04-2022 End: 04-04-2022 ambulatory Pearl Ortega Other [employer] Other Start: 04-04-2022 Encounter for genera l adult medical examination without abnormal findings Pearl Ortega [facility] Start: 04-04-2022 Telephone encounter Pearl Shannon [facility] Start: 01-15-2022 Adult health examination Pearl Ortega Other [employer] Other Start: 07-12-2021 End: 07-12-2021 Patient encounter procedure Poli VASQUEZ [facility] Start: 07-11-2021 End: 07-11-2021 Patient encounter procedure Poli VASQUEZ [facility] Start: 05-04-2017 End: 05-04-2017 Ambulatory PEARL ORTEGA [facility] Start: 11-03-2016 End: 11-07-2016 Ambulatory CHANDANA SAGE [facility] Procedures Date Procedure Procedure Detail Performing Clinician Start: 06-06-2016 Total vaginal hysterectomy, bilateral salpingectomy, anterior repair Poli VASQUEZ Start: 2015 General examination of patient Pearlsandrita Ortega Other Colonoscopy Poli VASQUEZ dental implant Poli VASQUEZ sinus surgery and septoplasty Poli VASQUEZ Plan of Treatment Date Care Activity Detail Author Start: 11-14-2024 Influenza vaccination Influenz a Vaccine (#1) [facility] Start: 09-20-2024 Patient referral [facility] Work Phone: Start: 05-31-2024 End: 05-31-2024 Patient encounter procedure [facility] Start: 03-29-2024 End: 03-29-2024 Patient encounter procedure [facility] Comment on above: Arrived Start: 02-24-2024 End: 02-24-2024 Patient encounter procedure 02/24/2024 11:30 AM EST Office Visit [facility] [address] [place] [id number] Mata Ivy, DPM [address] [place] [address] [facility] Start: 01-27-2024 End: 01-27-2024 Patient encounter procedure 01/27/2024 3:15 PM EST Office Visit [facility] [address] [place] [address] Mata Ivy, DPM [address] [place] [address] [facility] Start: 01-06-2024 End: 01-06-2024 Patient encounter procedure 01/06/2024 1:00 PM EDT Office Visit [facility] [address] [place] [address] Mata Ivy, DPM [address] [place] [address] Arrived [facility] Comment on above: Arrived Start: 11-15-2023 Influenza vaccination Influenz a Vaccine (#1) [facility] Start: 2008 Screening for malign ant neoplasm of breast Mammogram [facility] Start: 1998 Screening for malign ant neoplasm of cervix [facility] Start: 1989 Screening for malign ant neoplasm of cervix Pap Smear [facility] Start: 1968 Screening for malign ant neoplasm of colon [facility] CT Cervical spine WO contrast [facility] Electromyography [facility] MR Cervical spine WO contrast [facility] Patient referral [facility] Work Phone: XR Cervical spine 4 Views [facility] Immunizations Immunization Date Immunization Notes Care Provider [facility] 01-23-2024 influenza virus vaccine, unspecified formulation Mata Ivy DPM Work Phone: [facility] 12-27-2022 influenza virus vaccine, unspecified formulation Mata Ivy DPM Work Phone: [facility] 12-14-2021 influenza virus vaccine, unspecified formulation Noam Whitney [facility] 01-31-2021 SARS-CoV-2 (COVID-19 ) Ad26 vaccine, recombinant Poli PEDRO [facility] 12-22-2020 influenza virus vaccine, unspecified formulation Noam Whitney [facility] 06-29-2020 COVID-19, mRNA, LNP- S, PF, 30 mcg/0.3 mL dose; Translations: [[employer] COVID-19 Vaccine] Poli VASQUZE [facility] Comment on above: Reason for Medicatio n: Prophylaxis 06-01-2020 COVID-19, mRNA, LNP- S, PF, 30 mcg/0.3 mL dose; Translations: [Pfizer-BioNTech COVID-19 Vaccine] Poli VASQUEZ [facility] Comment on above: Reason for Medicatio n: Prophylaxis 12-23-2019 influenza virus vaccine, split virus (incl. purified surface antigen) Pearl Ortega Other [employer] Other 12-23-2019 influenza virus vaccine, unspecified formulation [facility] 03-22-2019 zoster vaccine recombinant Noam Whitney [facility] 01-17-2019 zoster vaccine recombinant Noam Whitney [facility] 01-11-2019 influenza virus vaccine, split virus (incl. purified surface antigen) Pearl Ortega Other [employer] Other 01-11-2019 influenza virus vaccine, unspecified formulation [facility] 03-16-2018 zoster vaccine, live Pearl Ortega Other [facility] 12-29-2017 influenza virus vaccine, split virus (incl. purified surface antigen) Pearl Ortega Other [employer] Other 12-29-2017 influenza virus vaccine, unspecified formulation Noam Whitney [facility] 01-02-2017 influenza virus vaccine, unspecified formulation Noam Whitney [facility] 01-02-2017 tetanus and diphther ia toxoids, adsorbed, preservative free, for adult use (5 Lf of tetanus toxoid and 2 Lf of diphtheria toxoid) Pearl Ortega Other [facility] 2015 influenza virus vaccine, unspecified formulation Noam Whitney [facility] 2015 tetanus and diphther ia toxoids, adsorbed, preservative free, for adult use (5 Lf of tetanus toxoid and 2 Lf of diphtheria toxoid) Pearl Ortega Other [facility] 12-18-2014 tetanus and diphther ia toxoids, adsorbed, preservative free, for adult use (5 Lf of tetanus toxoid and 2 Lf of diphtheria toxoid) Pearl Ortega Other [facility] 12-27-2013 tetanus and diphther ia toxoids, adsorbed, preservative free, for adult use (5 Lf of tetanus toxoid and 2 Lf of diphtheria toxoid) Pearl Ortega Other [facility] 01-12-2013 tetanus and diphther ia toxoids, adsorbed, preservative free, for adult use (5 Lf of tetanus toxoid and 2 Lf of diphtheria toxoid) Pearl Ortega Other [facility] Payers Date Payer Category Payer Private Health Insurance [employer] [id number] 1968 Unknown [id number]. 593 1968 Unknown [id number] [id number]. 1259 1968 Unknown [id number] [id number]. 1259 1968 Unknown [id number] [id number]. 1259 1968 Unknown [id number] [id number]. 1259 1968 Unknown [id number] [id number]. 1259 1968 Unknown [id number] [id number]. 1259 1968 Unknown [id number] [id number]. 1259 1968 Unknown [id number] [id number]. 1259 1968 Unknown [id number] [id number]. 727 1968 Unknown [id number] [id number]. 727 1959 Unknown [id number] Unknown [facility] [employer] [id number] Social History Date Type Detail Facility Start: 05-21-2020 End: 11-10-2024 Tobacco smoking status Never smoked tobacco (finding) [facility] Start: 10-07-2022 Tobacco smoking status Never [facility] Start: 10-07-2023 End: 09-15-2024 Sex Assigned At Female [facility] Start: 1970 Sex Assigned At Female [facility] Start: 10-14-2022 Tobacco use and exposure Smokeless tobacco non-user [facility] Start: 01-06-2024 End: 09-15-2024 Alcoholic beverage intake Lifetime non-drinker (finding) [facility] Start: 10-07-2023 End: 09-15-2024 History of Social function [facility] Start: 10-07-2022 Gender identity Identifies as female gender (finding) [facility] Start: 05-20-2024 Sex Female (finding) [facility] NEGATED: Highlighted row [facility] Clinical Notes 07-12-2021 to 11-08-2024 Telephone Encounter - Mata Ivy DPM - 11/08/2024 9:03 AM EDTTelephone Encounter - Mata Ivy DPM - 11/08/2024 9:03 AM EDT Note Date & Type Note Facility 11-08-2024 Telephone encount er Note Order was faxed for PT to [facility] as requested. [facility] Work Phone: 11-08-2024 Miscellaneous Notes Formattin g of this note might be different from the original. Order was faxed for PT to [facility] as requested. Patient called and stated that her right foot is hurting her again. She was wondering if we could order physical therapy for her, and to send the order to the [facility]. documented in this encounter [facility] 11-07-2024 Telephone encount er Note Patient called and stated that her right foot is hurting her again. She was wondering if we could order physical therapy for her, and to send the order to the [facility]. [facility] 09-20-2024 Evaluation note Diagnosis Onset Date Resolution Radiculitis of right cervical region acute September 20, 2024 2 :01pm Spasm of right trapezius muscle acute September 20, 2024 2:01pm Spasm of right trapezius muscle acute November 07 9:10am [facility] Work Phone: 1(180) 763-997007-08-2025 Evaluation note* Diagnosis Onset Date Resolution Status Admit Date Radiculitis of right cervica l region acute September 20, 2024 2 :01pm Spasm of right trapezius muscle acute September 20, 2024 2 :01pm Spasm of right trapezius muscle acute November 07 9:10am Myalgia acute November 2:27pm Right shoulder pain acute Septe mber 2024 2:27pm [facility] Work Phone: 1(941) 343-149207-08-2025 Hospital Discharge instructionsAmbulatory Orders* Referral to Neurosurgery Time Frame: 09/20/24, Location: None Selected [facility] Work Phone: 1(326) 564-480507-03-2025 History of Present illness Narrative* Mata Ivy [...] 4. RTC: 4-6 weeks. documented in this encounterP[facility] [id number] History of Present illness Narrative* Mata Ivy [...] FO, therapy if needed. documented in this encounterPhelps [id number] History of Present illness Narrative* Mata Ivy [...] having pain or symptoms. documented in this [facility]12-11-2024 History of Present illness Narrative* Mata Ivy [...] if still having pain. documented in this encounterPhelps [id number] History of Present illness Narrative* Mata Ivy, [...] if still having pain. documented in this encounterPhelps [id number] History of Present illness Narrative* Mata Ivy [...] she has continued pain. documented in this [facility]01-29-2024 Evaluation note* Encounter Date Diagnosis Assessment Notes [...] lymphocytic leukemia (ICD-10 - Z85.6) as above [employer] Other 10-17-2023 Evaluation note* Encounter Date Diagnosis Assessment Notes Treatment Notes Treatment Clinical Notes Dec, Anxiety, generalized (ICD-10 - F41.1) [employer] Other 01-20-2023 Evaluation note* Encounter Date Diagnosis Assessment Notes Treatment Notes Treatment Clinical Notes Mar, Wellness examination (ICD-10 - Z00.00) [employer] Other 04-29-2022 Hospital Discharge instructions Patient Education 07/12/2021 12:26:06 Kidney Stones, [id number] Kidney Stones Kidney stones are rock-like masses [...] Follow these instructions at home: Medicines Take [id number] and prescription medicines only as told by [...] 08/18/2008 Document Revised: 07/19/2019 Document Reviewed: 07/19/2019 [employer] Patient Education 2019 [employer] Follow Up Care 05/27/2021 09:26:18 With:PEDRO SIDHU, Poli Boucher, URL Address: [address] [place], [place] [id number]- When: Unknown [facility] Evaluation + Plan note Future Appointments Appointment Date:07/12/2021 11:30:00 AM Scheduled Provider:Poli VASQUEZ MD Location:[facility] Future Appointments Appointment Date:07/18/2022 09:15:00 AM Scheduled Provider:Poli VASQUEZ MD Location:[facility] Appointment Type:URO Office Visit [facility] Evaluation noteNo InformationNort CommProve Other Evalulzues noteNo assessment information available [facility] Work Phone: Evaluation note* Diagnosis Capsulitis of foot- Primary Right foot pain Pain in soft tissues of limb documented in this encounter [facility] HealthcareEvaluation note* Diagnosis Capsulitis of foot- Primary Right foot pain Pain in soft tissues of limb Neuroma digital nerve documented in this encounter [facility] HealthcareEvaluation note* Diagnosis Plantar fasciitis- Primary Plantar fascial fibromatosis Pain of both heels documented in this encounter [facility] HealthcareEvaluation note* Diagnosis Plantar fasciitis- Primary Plantar fascial fibromatosis Pain of right heel documented in this encounter [facility] HealthcareEvaluation note* Diagnosis Onset Date Resolution Status Admit Date Radiculitis of right cervica l region acute September 20, 2024 2 :01pm Spasm of right trapezius muscle acut e September 20, 2024 2:01pm [facility] Work Phone: History general Narrative - Reported* [...] teeth Surgical History colonoscopy - normal, at [facility] 2 021 Surgical History hysterectomy Surgical History ETHMOIDECTOMY 2009 Hospitalization History see above [employer] Other Hospital course Narrative No [facility] No data [facility] No data available for this section [facility] (narrative)No reason for referral information availablePremier [facility] Work Phone: Summary Purpose Family History Relationship [...] section and content) DATE CREATED AUTHOR 09/04/2017 [facility] DATE CREATED AUTHOR AUTHOR'S ORGANIZ ATION 04/16/2022 [facility] DATE CREATED AUTHOR AUTHOR'S ORGANIZ ATION 09/18/2024 [facility] EPIC DATE CREATED AUTHOR AUTHOR'S ORGANIZ ATION 11/06/2024 [facility] REASON FOR VISIT (unrecogniz ed section and [...] September 04, 2023 End: September 04, 2023 [employer] Relationship Specialty Start Date End Date Pearl Ortega MD [address] [place] [address] PCP - General Family Medicine 10/14/22 [employer] Relationship Specialty Start Date End Date Pearl Ortega MD [address] [place] [id number] PCP - General Family Medicine 10/14/22 [employer] Relationship Specialty Start Date End Date Pearl Ortega MD [address] [place] [id number] PCP - General Family Medicine 10/14/22 [employer] Relationship Specialty Start Date End Date Pearl Ortega MD [address] [place] [phone] PCP - [facility] 10/14/22 Team Status: Inactive Member Role Status Dates Pearl Ortega MD Primary Care Provide r, Attending Provider Active Start: May 20, 2024 End: May 20, 2024 [employer] Relationship Specialty Start Date End Date Pearl Ortega MD [address] [place] [phone] PCP - [facility] 08/25/24 [employer] Relationship Specialty Start Date End Date Pearl Ortega MD [address] [place] [phone] PCP - [facility] 08/25/24 Team Status: Inactive Member Role Status [...] BE BASED ON THE PRIMARY CLINICAL RECORDS. [facility] provides no warranty or guarantee of the accuracy or completeness of information in this document.
--- NOTE | 2024-12-07 13:13 | CT_ITS ---
The [address] [address] Patient Name: LUIS FERNANDO BARKLEY MRN: [id number] date: 1970 Sex: F Assigned Patient Location: CT Current Patient Location: CT Accession/Order Number: [id number] Exam Date: 12/07/2024 13:09 Report Date: 12/07/2024 16:54 At the request of: MEGHAN CRUZ DO Procedure: CT cervical spine wo con CT cervical spine wo con 12/07/2024 1:13 PM SIGN AND SYMPTOMS: ^Radiculitis Of Right Cervical Region TECHNIQUE: Multi detector CT axial slices of the cervical spine were obtained without IV contrast. Volumetric acquisition sagittal, coronal, and 3-D reconstructions were performed and reviewed. CT was performed with one or more of the following dose reduction techniques: Automated exposure control, adjustment of the mA and/or kV according to patient size, or use of iterative reconstruction technique. COMPARISON: 10/06/2024 FINDINGS: There is preservation of the vertebral body heights. There is mild to moderate disc height loss at C4-C5, C5-C6, and C6-7. There is uncovertebral joint spurring which is greatest at C5-C6. No fractures or dislocations are seen. The alignment of the cervical spine is normal. The craniocervical junction and atlantoaxial joint are within normal limits. The prevertebral soft tissues are within normal limits. The paraspinous soft tissues are within normal limits. The lung apices are unremarkable. Calcified plaque is noted in the carotid bifurcations. CT/CT cervical spine wo con IMPRESSION: No fracture or dislocation. Degenerative changes are noted, greatest at C5-C6 as above. This is similar to the previous MRI. Impression dictated by: Franc Garcia M.D. 12/07/2024 4:54 PM Dictation Location: [place] [address] Electronically authenticated by: [id number] Y Date: 12/07/2024 16:54
== END 2024-12-07 12:47 | disposition home or self-care (01) ==
LOC: CT 12:46
PROVIDERS: PCP Family Medicine; Visit Provider Neurological Surgery
DX: M54.12 Radiculopathy, cervical region (principal); M50.30 Other cervical disc degeneration, unspecified cervical region
CPT/HCPCS: 72125; 76376

== ENCOUNTER 2024-12-20 14:58 | Outpatient (RCR) | payer OTHER, SELFPAY | END 2024-12-21 11:05 | disposition home or self-care (01) | LOC: PT 14:58 | PROVIDERS: PCP Family Medicine; Visit Provider Podiatrist Foot & Ankle Surgery | DX: M72.2 Plantar fascial fibromatosis (principal); M79.671 Pain in right foot | CPT/HCPCS: 97035; 97140; 97161 ==